=== PATIENT | female | born 1975 | race Caucasian/White ===

== ENCOUNTER 2018-06-01 07:52 | Emergency (ER) | payer OTHER, SELFPAY ==
[2018-06-01] MEDS ORDERED: KETOROLAC 30 MG/ML INJ ONE (09:23)
[2018-06-01 09:39] LABS: Absolute Lymphocytes (CBC) 1.7 K/uL (0.7-4.9); Absolute Monocytes 0.6 K/uL (0.1-1.3); Absolute Neutrophil 12.4 K/uL (1.8-8.0); Basophils % 0.3 % (0-1.3); Eosinophils % 1.2 % (0-4.4); Hematocrit 42.5 % (36.0-45.0); Lymphocytes % 11.2 % (15.3-44.8); MPV 8.3 fL (7.6-11.3); Monocytes % 4.2 % (3.3-12.3); RBC Red Blood Cell Count 4.57 M/uL (3.86-4.86)
[2018-06-01 09:57] LABS: ALT/SGPT 17 U/L (12-78); AST/SGOT 16 U/L (15-37); Albumin 3.7 g/dL (3.4-5.0); Alkaline Phosphatase 62 U/L (45-117); BUN Blood Urea Nitrogen 10 mg/dL (7-18); Bicarbonate 27 mmol/L (21-32); Bilirubin Direct < 0.1 mg/dL (0-0.2); Bilirubin Total 0.4 mg/dL (0.2-1.0); Glucose Level 110 mg/dL (74-106); Lipase 74 U/L (73-393); Potassium 3.9 mmol/L (3.5-5.1); Protein, Total 7.2 g/dL (6.4-8.2); Sodium Level 139 mmol/L (136-145)
--- NOTE | 2018-06-01 10:32 | RAD REPORT ---
EXAM DESCRIPTION: CTAbdomen Pelvis W Contrast - 06/01/2018 10:21 am CLINICAL HISTORY: Abdominal pain. LLQ abd pain COMPARISON: No comparisons TECHNIQUE: Biphasic CT imaging of the abdomen and pelvis was performed with 100 ml non-ionic IV cont rast. All CT scans are performed using dose optimization technique as appropriate and may include automated exposure control or mA/KV adjustment according to patient size. FINDINGS: The lung bases are clear. The liver, spleen, pancreas, adrenal glands and kidneys are within normal limits. Mild free fluid is seen in the left upper quadrant surrounding the splenic flexure the colon. A promi nent diverticulum from the colon is seen in the region. No free intraperitoneal air, abscess or bowel obstruction. Appendectomy. No evidence of significant lymphadenopathy. No suspicious bony findings. Fibroid uterus is present. Submucosal fibroid versus polyp suspected in the endometrial canal, incompletely assessed. IMPRESSION: Short-segment colitis or diverticulitis is suspected involving the splenic flexure of th e colon in the left upper quadrant. Fibroid uterus is present with submucosal fibroid versus polyp suspected in the endometrial canal.
--- NOTE | 2018-06-01 10:40 | EDPHYS ---
Physician Documentation [facility] Name: Jen Joyce Age: 43 yrs Sex: Female : 1975 Arrival Date: 06/01/2018 Time: 07:55 Bed 20 Private MD: ED Physician Joseph Ng HPI: 06/01 10:40 This 43 yrs old Female presents to ER via Ambulatory with complaints of ps1 Abdominal Pain. 10:40 patient states that she had LLQ abdominal pain that started last night. Appx 11 pm. Hx ps1 of ovarian cyst s/p oophorectomy on L side as well as BTL and appendectomy. Pain unchanged. Pain rated as moderate. No fever. No remitting factors. No dysuria, + BM this morning. . 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 - Ebola Screening: : No symptoms or risks identified at this time. - Social history:: Smoking status: Patient uses tobacco products. ROS: 10:40 Constitutional: Negative for fever, chills, and weight loss, Eyes: Negative for injury, ps1 pain, redness, and discharge, ENT: Negative for injury, pain, and discharge, Cardiovascular: Negative for chest pain, palpitations, and edema, Respiratory: Negative for shortness of breath, cough, wheezing, and pleuritic chest pain, MS/Extremity: Negative for injury and deformity, Skin: Negative for injury, rash, and discoloration, Neuro: Negative for headache, weakness, numbness, tingling, and seizure. 10:40 Abdomen/GI: Positive for abdominal pain. Exam: 10:40 Constitutional: This is a well developed, well nourished patient who is awake, alert, ps1 and in no acute distress. Head/Face: Normocephalic, atraumatic. Eyes: Pupils equal round and reactive to light, extra-ocular motions intact. Lids and lashes normal. Conjunctiva and sclera are non-icteric and not injected. Chest/axilla: Normal chest wall appearance and motion. Nontender with no deformity. No lesions are appreciated. Cardiovascular: Regular rate and rhythm. No gallops, murmurs, or rubs. Normal PMI, no JVD. No pulse deficits. Respiratory: Lungs have equal breath sounds bilaterally, clear to auscultation and percussion. No rales, rhonchi or wheezes noted. No increased work of breathing, no retractions or nasal flaring. 10:40 Skin: Warm, dry with normal turgor. Normal color with no rashes, no lesions, and no evidence of cellulitis. MS/ Extremity: Pulses equal, no cyanosis. Neurovascular intact. Full, normal range of motion. Neuro: Awake and alert, GCS 15, oriented to person, place, time, and situation. Cranial nerves II-XII grossly intact. Sensory grossly intact. Psych: Awake, alert, with orientation to person, place and time. Behavior, mood, and affect are within normal limits. 10:40 Abdomen/GI: Inspection: abdomen appears normal, Bowel sounds: normal, Palpation: mild abdominal tenderness, in the left upper quadrant and left lower quadrant. Vital Signs: 08:09 BP 90 / 54; Pulse 56; Resp 16 S; Temp 97.8(O); Pulse Ox 100% on R/A; Weight 52.16 kg jl7 (R); Height 4 ft. 8 in. (142.24 cm) (R); Pain 10/10; 09:30 BP 91 / 56; Pulse 59; Resp 16; Pulse Ox 100% on R/A; Pain 5/10; jl7 10:56 BP 91 / 54; Pulse 58; Resp 16 S; Pulse Ox 100% on R/A; Pain 5/10; jl7 08:09 Body Mass Index 25.78 (52.16 kg, 142.24 cm) jl7 MDM: 08:17 Patient medically screened. ps1 10:45 Data reviewed: vital signs, nurses notes, lab test result(s), radiologic studies, CT ps1 scan, and as a result, I will discharge patient. Counseling: I had a detailed discussion with the patient and/or guardian regarding: the historical points, exam findings, and any diagnostic results supporting the discharge/admit diagnosis, lab results, radiology results, the need for outpatient follow up, to return to the emergency department if symptoms worsen or persist or if there are any questions or concerns that arise at home. 06/01 08:29 Order name: Urine Dipstick--Ancillary (enter results); Complete Time: 10:45 bd 06/01 08:29 Order name: Urine --Ancillary (enter results); Complete Time: 10:45 bd 06/01 08:38 Order name: Creatinine for Radiology; Complete Time: 09:59 ps1 06/01 08:38 Order name: Basic Metabolic Panel; Complete Time: 09:59 ps1 06/01 08:38 Order name: CBC with Diff; Complete Time: 09:48 ps1 06/01 08:38 Order name: Hepatic Function; Complete Time: 09:59 ps1 06/01 08:38 Order name: Lipase; Complete Time: 09:59 ps1 06/01 08:38 Order name: IV Saline Lock; Complete Time: 08:38 ps1 06/01 08:38 Order name: Labs collected and sent; Complete Time: 08:38 ps1 06/01 08:38 Order name: CT Abd/Pelvis - W/Contrast; Complete Time: 10:37 ps1 Administered Medications: 09:18 Drug: TORadol 30 mg Route: IVP; Site: right antecubital; [facility] 09:45 Follow up: Response: No adverse reaction; Pain is decreased jl7 Disposition: 06/01/18 10:38 Discharged to Home. Impression: Diverticulitis of intestine, part unspecified, without perforation or abscess without bleeding. - Condition is Stable. - Discharge Instructions: Diverticulitis. - Prescriptions for Flagyl 500 mg Oral Tablet - take 1 tablet by ORAL route every 8 hours for 10 days; 30 tablet. Tylenol- Codeine #3 300-30 mg Oral Tablet - take 2 tablet by ORAL route every 6 hours As needed; 30 tablet. Zofran 4 mg Oral Tablet - take 1 tablet by ORAL route every 12 hours As needed; 20 tablet. Cipro 500 mg Oral Tablet - take 1 tablet by ORAL route every 12 hours for 7 days; 14 tablet. - Medication Reconciliation Form, Thank You Letter, Antibiotic Education, Prescription Opioid Use form. - Follow up: Private Physician; When: As needed; Reason: Further diagnostic work-up, Recheck today's complaints, Continuance of care, Re-evaluation by your physician. Follow up: Emergency Department; When: As needed; Reason: Worsening of condition. - Problem is new. - Symptoms have improved. Signatures: Dispatcher [employer] Louise Matthews RN RN jl7 Joseph Ng MD MD ps1 Corrections: (The following items were deleted from the chart) 10:57 10:38 06/01/2018 10:38 Discharged to Home. Impression: Diverticulitis of intestine, jl7 part unspecified, without perforation or abscess without bleeding. Condition is Stable. Forms are Medication Reconciliation Form, Thank You Letter, Antibiotic Education, Prescription Opioid Use. Follow up: Private Physician; When: As needed; Reason: Further diagnostic work-up, Recheck today's complaints, Continuance of care, Re-evaluation by your physician. Follow up: Emergency Department; When: As needed; Reason: Worsening of condition. Problem is new. Symptoms have improved. ps1
--- NOTE | 2018-06-01 10:40 | ER ---
Nurse's Notes [facility] Name: Jen Joyce Age: 43 yrs Sex: Female : 1975 Arrival Date: 06/01/2018 Time: 07:55 Bed 20 Private MD: Diagnosis: Diverticulitis of intestine, part unspecified, without perforation or abscess without bleeding Presentation: 06/01 08:04 Presenting complaint: Patient states: LLQ abd pain started last night at 2300, last BM jl7 this morning and normal, last period was last week. Transition of care: patient was not received from another setting of care. Onset of symptoms was May 31, 2018 at 23:00. Risk Assessment: Do you want to hurt yourself or someone else? Patient reports no desire to harm self or others. Initial Sepsis Screen: Does the patient meet any 2 criteria? No. Patient's initial sepsis screen is negative. Does the patient have a suspected source of infection? No. Patient's initial sepsis screen is negative. Care prior to arrival: None. 08:04 Method Of Arrival: Ambulatory [facility] 08:04 Acuity: TAMELA 3 jl7 Triage Assessment: 08:09 General: Appears in no apparent distress. uncomfortable, Behavior is calm, cooperative, jl7 appropriate for age. Pain: Complains of pain in left lower quadrant Pain does not radiate. Pain currently is 10 out of 10 on a pain scale. Quality of pain is described as sharp, Pain began suddenly, Is continuous. EENT: No signs and/or symptoms were reported regarding the EENT system. Neuro: Level of Consciousness is awake, alert, obeys commands, Oriented to person, place, time, situation. Cardiovascular: Patient's skin is warm and dry. Respiratory: Airway is patent Respiratory effort is even, unlabored, Respiratory pattern is regular, symmetrical. GI: Reports lower abdominal pain, nausea, vomiting. : No signs and/or symptoms were reported regarding the genitourinary system. Denies burning with urination, pain urinary frequency. Derm: Skin is pink, warm \T\ dry. 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 - Ebola Screening: : No symptoms or risks identified at this time. - Social history:: Smoking status: Patient uses tobacco products. Screenin:15 Abuse screen: Denies threats or abuse. Denies injuries from another. Nutritional jl7 screening: No deficits noted. Tuberculosis screening: No symptoms or risk factors identified. Fall Risk IV access (20 points). Assessment: 08:15 General: See triage assessment. jl7 09:17 Reassessment: Patient appears in no apparent distress at this time. Patient and/or jl7 family updated on plan of care and expected duration. Pain level reassessed. Patient is alert, oriented x 3, equal unlabored respirations, skin warm/dry/pink. Pt requesting pain medication, ERD notified, see [facility] for orders. Vital Signs: 08:09 BP 90 / 54; Pulse 56; Resp 16 S; Temp 97.8(O); Pulse Ox 100% on R/A; Weight 52.16 kg jl7 (R); Height 4 ft. 8 in. (142.24 cm) (R); Pain 10/10; 09:30 BP 91 / 56; Pulse 59; Resp 16; Pulse Ox 100% on R/A; Pain 5/10; jl7 10:56 BP 91 / 54; Pulse 58; Resp 16 S; Pulse Ox 100% on R/A; Pain 5/10; jl7 08:09 Body Mass Index 25.78 (52.16 kg, 142.24 cm) jl7 ED Course: 07:55 Patient arrived in ED. mr 08:02 Joseph Ng MD is Attending Physician. ps1 08:04 Louise Kellogg, STEPH is Primary Nurse. jl7 08:07 Triage completed. jl7 08:09 Arm band placed on right wrist. jl7 08:15 Patient has correct armband on for positive identification. Placed in gown. Bed in low jl7 position. Call light in reach. Side rails up X 1. Pulse ox on. NIBP on. Warm blanket given. 08:15 Urine collected: clean catch specimen, cloudy. jl7 08:31 Initial lab(s) drawn, by me. Inserted saline lock: 22 gauge in right antecubital area, jb1 using aseptic technique. Blood collected. 10:13 CT completed. Patient tolerated procedure well. Patient moved to CT via wheelchair. sj Patient moved back from CT. 10:21 CT Abd/Pelvis - W/Contrast In Process Unspecified. EDMS 10:54 No provider procedures requiring assistance completed. IV discontinued, intact, jl7 bleeding controlled, No redness/swelling at site. Pressure dressing applied. Administered Medications: 09:18 Drug: TORadol 30 mg Route: IVP; Site: right antecubital; jl7 09:45 Follow up: Response: No adverse reaction; Pain is decreased jl7 Outcome: 10:38 Discharge ordered by . ps1 10:54 Discharged to home ambulatory. jl7 10:54 Condition: stable 10:54 Discharge instructions given to patient, family, Instructed on discharge instructions, follow up and referral plans. medication usage, Demonstrated understanding of instructions, follow-up care, medications, Prescriptions given X 4. 10:57 Patient left the ED. jl7 Signatures: Dispatcher [employer] EDMS Mckay Villavicencio jbMelina Holbrook Susan sj Leal, Jahala, RN RN jl7 Joseph Ng MD MD ps1
[2018-06-01 10:42] LABS: Urine Blood 2+ (NEG); Urine Glucose NEGATIVE (NEG); Urine Protein 1+ (NEG)
[2018-06-01 11:04] VITALS: TEMP 97.8; O2SAT 100
[2018-06-01 11:06] VITALS: BP 91/54
== END 2018-06-01 10:57 | disposition home or self-care (01) ==
LOC: ER 07:52
DX: K57.92 Diverticulitis of intestine, part unspecified, without perforation or abscess without bleeding (principal); J45.909 Unspecified asthma, uncomplicated; Z88.0 Allergy status to penicillin; Z72.0 Tobacco use
CPT/HCPCS: 36415; 74177; 80048; 80076; 81003; 81025; 83690; 85025; 96374; 99284; Q9967

== ENCOUNTER 2021-12-03 09:20 | Emergency (ER) | payer SELFPAY ==
[2021-12-03 10:12] LABS: Urine Blood 2+ (Negative); Urine Glucose Negative (Negative); Urine Protein 2+ (Negative)
[2021-12-03] MEDS ORDERED: CEFTRIAXONE 1000 MG/VIAL ONE (10:26)
--- NOTE | 2021-12-03 10:28 | ER ---
Nurse's Notes [facility] Name: Jen Joyce Age: 46 yrs Sex: Female : 1975 Arrival Date: 12/03/2021 Time: : Bed 20 Private MD: Diagnosis: UTI/ Urinary tract infection, site not specified Presentation: 12/03 09:27 Chief complaint: Patient states: she is having lower abdominal pain and pain with ap3 urination since Wednesday11/30/2021. Coronavirus screen: At this time, the client does not indicate any symptoms associated with coronavirus-19. Ebola Screen: No symptoms or risks identified at this time. Initial Sepsis Screen: Does the patient meet any 2 criteria? No. Patient's initial sepsis screen is negative. Does the patient have a suspected source of infection? No. Patient's initial sepsis screen is negative. Risk Assessment: Do you want to hurt yourself or someone else? Patient reports no desire to harm self or others. Onset of symptoms was November 30, 2021. 09: Method Of Arrival: Ambulatory ap3 : Acuity: TAMELA 3 ap3 Triage Assessment: : General: Appears uncomfortable, Behavior is calm, cooperative. Pain: Complains of pain ap3 in suprapubic area, right lower quadrant and left lower quadrant. Neuro: Level of Consciousness is awake, alert, obeys commands, Oriented to person, place, time, situation. : Reports burning with urination, urgency. 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 - Social history:: Smoking status: Patient reports the use of cigarette tobacco products, denies chronic smoking, but will smoke occasionally. Screenin: Abuse screen: Denies threats or abuse. Nutritional screening: No deficits noted. ap3 Tuberculosis screening: No symptoms or risk factors identified. 10:57 Fall Risk None identified. 5 Vital Signs: BP 118 / 65; Pulse 65; Resp 18; Temp 99.0(O); Pulse Ox 100% ; Weight 65.77 kg; Height 4 ap3 ft. 8 in. (142.24 cm); 10:58 BP 122 / 63; Pulse 68; Resp 18; Pulse Ox 100% ; jh5 09:27 Body Mass Index 32.51 (65.77 kg, 142.24 cm) ap3 ED Course: 09:21 Patient arrived in ED. am2 09:25 Shaggy Mitchell PA is PHCP. [facility] 09:25 Asa Walker MD is Attending Physician. [facility] 09:28 Triage completed. ap3 09:29 Arm band placed on right wrist. ap3 09:31 Salena Jensen, RN is Primary Nurse. [facility] 10:16 Urine Culture Sent. [facility] 10:57 Patient has correct armband on for positive identification. [facility] 10:57 No provider procedures requiring assistance completed. Patient did not have IV access [facility] during this emergency room visit. Administered Medications: 10:20 Drug: Rocephin (cefTRIAXone) 1 grams Route: IM; Site: right gluteus; [facility] Medication: 10:58 VIS not applicable for this client. [facility] Outcome: 10:28 Discharge ordered by MD. [facility] 10:57 Discharged to home ambulatory. [facility] 10:57 Condition: good 10:57 Discharge instructions given to patient, Instructed on discharge instructions, follow up and referral plans. Demonstrated understanding of instructions, follow-up care, medications, Prescriptions given X 1. 11:05 Patient left the ED. [facility] Signatures: Shaggy Mitchell PA PA [facility] Odessa Jiménez [facility] Odessa Anderson RN RN [facility] Salena Jensen, STEPH RN 5 Corrections: (The following items were deleted from the chart) : 09:28 PMHx: Asthma; ap3 ap3
--- NOTE | 2021-12-03 10:29 | EDPHYS ---
Physician Documentation [facility] Name: Jen Joyce Age: 46 yrs Sex: Female : 1975 Arrival Date: 12/03/2021 Time: 09:21 Bed 20 Private MD: ED Physician Asa Walker HPI: 12/03 09:39 This 46 yrs old Female presents to ER via Ambulatory with complaints of Pelvic Pain, jmm Pain With Urination. 09:39 The patient presents with pelvic pain. Onset: The symptoms/episode began/occurred jmm gradually. 09:39 Modifying factors: The symptoms are alleviated by nothing, the symptoms are aggravated jmm by nothing. 09:39 Associated signs and symptoms: Pertinent positives: dysuria. This is a 46 year old jmm female with a history of asthma that presents to the ED with complaints of painful urination, increased frequency and suprapubic abdominal pain beginning approx 3 days ago. Admits to subjective fever. Denies vomiting. . 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 - Social history:: Smoking status: Patient reports the use of cigarette tobacco products, denies chronic smoking, but will smoke occasionally. ROS: 09:39 Cardiovascular: Negative for chest pain, palpitations, and edema, Respiratory: Negative jmm for shortness of breath, cough, wheezing, and pleuritic chest pain. 09:39 Constitutional: Positive for body aches, chills. 09:39 : Positive for urinary symptoms. 09:39 All other systems are negative. Exam: 09:39 Constitutional: This is a well developed, well nourished patient who is awake, alert, jmm and in no acute distress. Head/Face: atraumatic. Eyes: EOMI, no conjunctival erythema appreciated ENT: Moist Mucus Membranes Neck: Trachea midline, Supple Chest/axilla: Normal chest wall appearance and motion. Cardiovascular: Regular rate and rhythm. No edema appreciated Respiratory: Normal respirations, no respiratory distress appreciated 09:39 Back: Normal ROM Skin: General appearance color normal MS/ Extremity: Moves all extremities, no obvious deformities appreciated, no edema noted to the lower extremities Neuro: Awake and alert Psych: Behavior is normal, Mood is normal, Patient is cooperative and pleasant 09:39 Abdomen/GI: Inspection: abdomen appears normal, Bowel sounds: normal, Palpation: soft, nontender, in the right upper quadrant, left upper quadrant, right lower quadrant and left lower quadrant, mild abdominal tenderness, in the suprapubic area. Vital Signs: 09:27 BP 118 / 65; Pulse 65; Resp 18; Temp 99.0(O); Pulse Ox 100% ; Weight 65.77 kg; Height 4 ap3 ft. 8 in. (142.24 cm); 10:58 BP 122 / 63; Pulse 68; Resp 18; Pulse Ox 100% ; jh5 09:27 Body Mass Index 32.51 (65.77 kg, 142.24 cm) ap3 MDM: 09:39 Patient medically screened. [facility] 10:26 Data reviewed: vital signs, nurses notes. Counseling: I had a detailed discussion with lashon the patient and/or guardian regarding: the historical points, exam findings, and any diagnostic results supporting the discharge/admit diagnosis, lab results, the need for outpatient follow up, to return to the emergency department if symptoms worsen or persist or if there are any questions or concerns that arise at home. ED course: Patient is alert and non toxic in appearance in the ED. I do not suspect an acute intrabdominal process. Patient advised to follow up with pcp and otherwise given strict return precautions. patient understood and agrees with the plan of care. . 12/03 09:43 Order name: Urine Culture [facility] 12/03 10:12 Order name: Urine Dipstick-Ancillary; Complete Time: 10:12 EDMS 12/03 09:43 Order name: Urine Dipstick-Ancillary (obtain specimen); Complete Time: 10:16 [facility] Administered Medications: 10:20 Drug: Rocephin (cefTRIAXone) 1 grams Route: IM; Site: right gluteus; 5 Disposition: 11:51 Co-signature as Attending Physician, Asa Walker MD I agree with the assessment and kdr plan of care. Disposition Summary: 12/03/21 10:28 Discharge Ordered Location: Home [facility] Condition: Stable [facility] Diagnosis - UTI/ Urinary tract infection, site not specified [facility] Followup: [facility] - With: Private Physician - When: 2 - 3 days - Reason: Recheck today's complaints, Continuance of care, Re-evaluation by your physician Discharge Instructions: - Discharge Summary Sheet [facility] - Urinary Tract Infection, Adult [facility] Forms: - Medication Reconciliation Form [facility] - Thank You Letter [facility] - Work release form [facility] - Antibiotic Education [facility] - Prescription Opioid Use [facility] Prescriptions: - cefpodoxime 200 mg Oral Tablet - take 1 tablet by ORAL route every 12 hours for 10 days with food; 20 tablet; [facility] Refills: 0, Product Selection Permitted Signatures: Dispatcher [employer] EDAsa Newbrery MD MD kdr Mickail, Joel, PA PA jmm Prokisch, Amanda, RN RN ap3 Salena Jensen RN RN jh5 Corrections: (The following items were deleted from the chart) 09:29 09:28 PMHx: Asthma; ap3 ap3
[2021-12-03 11:26] VITALS: O2SAT 100
[2021-12-03 11:33] VITALS: BP 118/65; TEMP 99
== END 2021-12-03 11:05 | disposition home or self-care (01) ==
LOC: ER 09:20
DX: N39.0 Urinary tract infection, site not specified (principal); F17.210 Nicotine dependence, cigarettes, uncomplicated; Z88.1 Allergy status to other antibiotic agents
CPT/HCPCS: 81003; 87086; 87088

== ENCOUNTER 2022-02-15 19:44 | Emergency (ER) | payer SELFPAY ==
[2022-02-15 20:40] LABS: Absolute Lymphocytes (CBC) 3.2 K/uL (0.7-4.9); Hematocrit 39.7 % (36.0-45.0); Lymphocytes % 39.5 % (15.3-44.8); MPV 7.5 fL (7.6-11.3); RBC Red Blood Cell Count 4.46 M/uL (3.86-4.86)
--- NOTE | 2022-02-15 21:02 | RAD REPORT ---
EXAM DESCRIPTION: RAD - Chest Single View - 02/15/2022 8:44 pm CLINICAL HISTORY: CHEST PAIN Chest pain. COMPARISON: Chest Pa And Lat (2 Views) dated 03/03/2017; CHEST SINGLE VIEW dated 01/14/2015; CHEST SI NGLE VIEW dated 08/05/2014; CHEST PA AND LAT 2 VIEW dated 08/04/2014 FINDINGS: Portable technique limits examination quality. The lungs are grossly clear. The heart is upper limit of normal in size. No displaced fractures. IMPRESSION: No acute intrathoracic process suspected.
[2022-02-15] MEDS ORDERED: KETOROLAC 30 MG/ML INJ ONE (22:40)
[2022-02-15 23:39] LABS: Potassium 3.7 mmol/L (3.5-5.1); Troponin High Sensitivity 9.5 pg/mL (<58.9)
--- NOTE | 2022-02-16 01:03 | ER ---
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 I also feel really fatigued. 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 Coronavirus screen: Vaccine status: Patient reports receiving the 2nd dose of the covid vaccine. Ebola Screen: No symptoms or risks identified at this time. Initial Sepsis Screen: Does the patient meet any 2 criteria? No. Patient's initial sepsis screen is negative. Does the patient have a suspected source of infection? No. Patient's initial sepsis screen is negative. Risk Assessment: Do you want to hurt yourself or someone else? Patient reports no desire to harm self or others. Onset of symptoms was February 15, 2022. 19:54 Method Of Arrival: Ambulatory kd3 19:54 Acuity: TAMELA 3 kd3 Triage Assessment: 19:56 General: Appears uncomfortable, Behavior is calm, cooperative. Pain: Complains of pain kd3 in chest. Cardiovascular: Patient's skin is warm and dry. 19:56 Neuro: Level of Consciousness is awake, alert, obeys commands, Oriented to person, kd3 place, time, situation. Respiratory: Airway is patent Trachea midline Respiratory effort is even, unlabored, Respiratory pattern is regular, symmetrical. CLIENT ADVISOR: 02/16 01:09 LMP N/A - Post-menopause aa9 Historical: - Allergies: 02/15 19:56 Amoxicillin; kd3 - PMHx: 19:56 Asthma; kd3 - Immunization history:: Adult Immunizations up to date. - Social history:: Smoking status: unknown. Screenin:57 Abuse screen: Denies threats or abuse. Denies injuries from another. Nutritional kd3 screening: No deficits noted. Tuberculosis screening: No symptoms or risk factors identified. Fall Risk None identified. Assessment: 20:09 General: Appears uncomfortable, slender, Behavior is calm, cooperative, appropriate for aa9 age. Pain: Complains of pain in chest, right arm and left arm Pain radiates to right arm and left arm Pain currently is 5 out of 10 on a pain scale. Quality of pain is described as pressure, Pain began 2 weeks Current management is with Tylenol. Neuro: Level of Consciousness is awake, alert, obeys commands, Oriented to person, place, time, situation. Cardiovascular: Patient's skin is warm and dry. Rhythm is sinus rhythm. Respiratory: Airway is patent Respiratory effort is even, unlabored. GI: No signs and/or symptoms were reported involving the gastrointestinal system. : No signs and/or symptoms were reported regarding the genitourinary system. 21:04 Reassessment: Patient appears in no apparent distress at this time. General: Appears aa9 comfortable, Behavior is calm, cooperative, appropriate for age. Neuro: Level of Consciousness is awake, alert, obeys commands, Oriented to person, place, time, situation. Respiratory: Airway is patent Respiratory effort is even, unlabored. 02/16 01:03 Reassessment: Patient appears in no apparent distress at this time. General: Appears aa9 comfortable, slender, Behavior is calm, cooperative, appropriate for age. Pain: Denies pain. Neuro: Level of Consciousness is awake, alert, obeys commands, Oriented to person, place, time, situation. Cardiovascular: Patient's skin is warm and dry. Respiratory: Airway is patent Respiratory effort is even, unlabored. GI: No signs and/or symptoms were reported involving the gastrointestinal system. : No signs and/or symptoms were reported regarding the genitourinary system. 03:09 Reassessment: attempted to call report. aa9 03:28 Reassessment: Report provided to Laverne EMT with [facility] for transport. aa9 03:31 Reassessment: Daughter in law, Patricia called at [phone], notified of transfer, aa9 understands need for transfer and denies concerns, pt stable, understands need for transfer. 03:56 Reassessment: Report provided to Delbert CHOI at [facility] ICU. bb Vital Signs: 02/15 19:54 BP 114 / 60; Pulse 61; Resp 19; Temp 98.2(O); Pulse Ox 96% on R/A; Weight 54.43 kg; kd3 Height 4 ft. 8 in. (142.24 cm); 20:11 BP 123 / 66; Pulse 58; Resp 14 S; Pulse Ox 99% on R/A; Pain 5/10; aa9 21:15 BP 106 / 63; Pulse 51; Resp 17 S; Pulse Ox 99% ; aa9 22:16 BP 102 / 57; Pulse 52; Resp 16 S; Pulse Ox 97% on R/A; aa9 02/16 00:00 BP 110 / 59; Pulse 53; Resp 16 S; Temp 98.2(O); Pulse Ox 96% on R/A; aa9 01:00 BP 117 / 68; Pulse 49; Resp 17 S; Pulse Ox 97% on R/A; aa9 03:00 BP 100 / 56; Pulse 47; Resp 16 S; Pulse Ox 96% on R/A; aa9 02/15 19:54 Body Mass Index 26.90 (54.43 kg, 142.24 cm) kd3 ED Course: 02/15 19:46 Patient arrived in ED. mr 19:48 Asa Walker MD is Attending Physician. kdr 19:56 Triage completed. kd3 19:56 Arm band placed on right wrist. kd3 19:57 Patient has correct armband on for positive identification. kd3 19:57 Patient maintains SpO2 saturation greater than 95% on room air. kd3 20:06 Lakisha Martinez, RN is Primary Nurse. aa9 20:07 Placed in gown. Bed in low position. Call light in reach. Side rails up X 1. Adult w/ mm9 patient. Warm blanket given. environmental monitoring specialist on. Pulse ox on. NIBP on. 20:08 EKG done, by ED staff, reviewed by Asa Walker MD. mm9 20:25 Inserted saline lock: 20 gauge in left antecubital area, using aseptic technique. Blood aa9 collected. 20:27 Basic Metabolic Panel Sent. aa9 20:27 CBC with Diff Sent. aa9 20:27 D-Dimer Sent. aa9 20:27 NT PRO-BNP Sent. aa9 20:27 Troponin HS Sent. aa9 20:34 Diet: Patient given water. Tolerated well. aa9 20:44 Notified ED physician of a critical lab result(s). DDimer [id number] Dr Walker notified. bb 20:46 XRAY Chest (1 view) In Process Unspecified. EDMS 21:03 Warm blanket given. aa9 23:34 Troponin HS Sent. aa9 23:34 NT PRO-BNP Sent. aa9 23:34 Basic Metabolic Panel Sent. aa9 02/16 00:02 CT Chest For PE Angio In Process Unspecified. EDMS 01:09 No provider procedures requiring assistance completed. aa9 02:05 SARS RAPID Sent. aa9 03:31 Patient transferred, IV remains in place. aa9 Administered Medications: 02/15 22:42 Drug: Ketorolac 15 mg Route: IVP; Site: left antecubital; aa9 23:10 Follow up: Response: No adverse reaction aa9 Medication: 02/16 01:09 VIS not applicable for this client. aa9 Outcome: 01:02 ER care complete, transfer ordered by . kdr 03:30 Transferred by ground EMS Transfer form completed. aa9 03:30 Condition: stable 03:30 Instructed on the need for admit. 03:35 Patient left the ED. aa9 Signatures: Dispatcher [employer] EDMS Asa Walker MD MD kdr Rivera, Mary Jessi Concepcion, RN RN Soledad Dawson RN RN kd3 Lakisha Martinez RN RN aa9 Kassie Khan mm9 Corrections: (The following items were deleted from the chart) 01:06 02/15 20:34 BP 106 / 63; Pulse 51bpm; Resp 17bpm; Spontaneous; Pulse Ox 99%; aa9 aa9
--- NOTE | 2022-02-16 01:03 | EDPHYS ---
Physician Documentation [facility] Name: Jen Joyce Age: 46 yrs Sex: Female : 1975 Arrival Date: 02/15/2022 Time: 19:46 Bed 13 Private MD: ED Physician Asa Walker HPI: 02/16 03:18 This 46 yrs old Female presents to ER via Ambulatory with complaints of Chest Pain. kdr 03:18 The patient or guardian reports chest pain that is located primarily in the anterior kdr chest wall, bilaterally. Onset: gradually. 03:20 Patient states that she has had intermittent chest discomfort for couple of weeks. She kdr states that the episodes of chest pain make her feel dizzy and her arms numb. She also feels generally fatigued. In the nursing notes, the patient admits to a history of a "kink in the main artery" of her heart. On my initial interview she did not disclose any congenital cardiac conditions or anomalies. 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 However she has not followed up with this plan of care and feels that there may be some correlation with her current symptoms. Patient is nontoxic-appearing and is relatively pain-free on initial presentation. Onset: The symptoms/episode began/occurred gradually, 2 week(s) ago. Severity of symptoms: At their worst the symptoms were mild in the emergency department the symptoms are unchanged. The patient has not experienced similar symptoms in the past. The patient has not recently seen a physician. SAW SHARPENER: 01:09 LMP N/A - Post-menopause aa9 Historical: - Allergies: 02/15 19:56 Amoxicillin; kd3 - PMHx: 19:56 Asthma; kd3 - Immunization history:: Adult Immunizations up to date. - Social history:: Smoking status: unknown. ROS: 02/16 03:20 Constitutional: Negative for fever, chills, and weight loss, Eyes: Negative for injury, kdr pain, redness, and discharge, ENT: Negative for injury, pain, and discharge, Neck: Negative for injury, pain, and swelling, Respiratory: Negative for shortness of breath, cough, wheezing, and pleuritic chest pain, Abdomen/GI: Negative for abdominal pain, nausea, vomiting, diarrhea, and constipation, Back: Negative for injury and pain, : Negative for injury, bleeding, discharge, and swelling, MS/Extremity: Negative for injury and deformity, Skin: Negative for injury, rash, and discoloration, Neuro: Negative for headache, weakness, numbness, tingling, and seizure activity. Psych: Negative for depression, anxiety, suicide ideation, homicidal ideation, and hallucinations, Allergy/Immunology: Negative for hives, rash, and allergies, Endocrine: Negative for neck swelling, polydipsia, polyuria, polyphagia, and marked weight changes, Hematologic/Lymphatic: Negative for swollen nodes, abnormal bleeding, and unusual bruising. Cardiovascular: Positive for chest pain, Negative for edema, orthopnea, palpitations. MS/extremity: Positive for Pain in her left arm and paresthesias in both hands on a periodic basis. Exam: 03:20 Constitutional: This is a well developed, well nourished patient who is awake, alert, kdr and in no acute distress. Head/Face: Normocephalic, atraumatic. Eyes: Pupils equal round and reactive to light, extra-ocular motions intact. Lids and lashes normal. Conjunctiva and sclera are non-icteric and not injected. Cornea within normal limits. Periorbital areas with no swelling, redness, or edema. Neck: Trachea midline, no thyromegaly or masses palpated, and no cervical lymphadenopathy. Supple, full range of motion without nuchal rigidity, or vertebral point tenderness. No Meningismus. Chest/axilla: Normal chest wall appearance and motion. Nontender with no deformity. No lesions are appreciated. Cardiovascular: Regular rate and rhythm with a normal S1 and S2. No gallops, murmurs, or rubs. Normal PMI, no JVD. No pulse deficits. Respiratory: Lungs have equal breath sounds bilaterally, clear to auscultation and percussion. No rales, rhonchi or wheezes noted. No increased work of breathing, no retractions or nasal flaring. Abdomen/GI: Soft, non-tender, with normal bowel sounds. No distension or tympany. No guarding or rebound. No evidence of tenderness throughout. Back: No spinal tenderness. No costovertebral tenderness. Full range of motion. Skin: Warm, dry with normal turgor. Normal color with no rashes, no lesions, and no evidence of cellulitis. MS/ Extremity: Pulses equal, no cyanosis. Neurovascular intact. Full, normal range of motion. Neuro: Awake and alert, GCS 15, oriented to person, place, time, and situation. Cranial nerves II-XII grossly intact. Motor strength 5/5 in all extremities. Sensory grossly intact. Cerebellar exam normal. Normal gait. Psych: Awake, alert, with orientation to person, place and time. Behavior, mood, and affect are within normal limits. Vital Signs: 02/15 19:54 BP 114 / 60; Pulse 61; Resp 19; Temp 98.2(O); Pulse Ox 96% on R/A; Weight 54.43 kg; kd3 Height 4 ft. 8 in. (142.24 cm); 20:11 BP 123 / 66; Pulse 58; Resp 14 S; Pulse Ox 99% on R/A; Pain 5/10; aa9 21:15 BP 106 / 63; Pulse 51; Resp 17 S; Pulse Ox 99% ; aa9 22:16 BP 102 / 57; Pulse 52; Resp 16 S; Pulse Ox 97% on R/A; aa9 02/16 00:00 BP 110 / 59; Pulse 53; Resp 16 S; Temp 98.2(O); Pulse Ox 96% on R/A; aa9 01:00 BP 117 / 68; Pulse 49; Resp 17 S; Pulse Ox 97% on R/A; aa9 03:00 BP 100 / 56; Pulse 47; Resp 16 S; Pulse Ox 96% on R/A; aa9 02/15 19:54 Body Mass Index 26.90 (54.43 kg, 142.24 cm) kd3 MDM: 01:02 Patient medically screened. kdr 03:20 Data reviewed: vital signs, nurses notes, lab test result(s), radiologic studies. kdr Counseling: I had a detailed discussion with the patient and/or guardian regarding: the historical points, exam findings, and any diagnostic results supporting the discharge/admit diagnosis, lab results, radiology results, the need to transfer to another facility. ED course: Patient has continued to be stable in the ED. She is not having any further discomfort at this time. She been given Toradol for pain. She was transferred to [facility] in stable condition. She was happy with the care provided the plan for transfer to the higher level care facility. 02/15 20:09 Order name: Basic Metabolic Panel; Complete Time: 02:13 kdr 02/15 20:09 Order name: CBC with Diff; Complete Time: 21:30 kdr 02/15 20:09 Order name: D-Dimer; Complete Time: 21:30 kdr 02/15 20:09 Order name: NT PRO-BNP; Complete Time: 02:13 kdr 02/15 20:09 Order name: Troponin HS; Complete Time: 02:13 kdr 02/16 01:41 Order name: SARS RAPID bb 02/15 20:09 Order name: XRAY Chest (1 view); Complete Time: 21:30 kdr 02/15 20:09 Order name: EKG; Complete Time: 20:11 kdr 02/15 20:09 Order name: Cardiac monitoring; Complete Time: 20:12 kdr 02/15 20:09 Order name: EKG - Nurse/Tech; Complete Time: 20:12 kdr 02/15 20:09 Order name: IV Saline Lock; Complete Time: 20:27 kdr 02/15 20:09 Order name: Labs collected and sent; Complete Time: 20:27 kdr 02/15 21:31 Order name: CT Chest For PE Angio kdr 02/15 20:09 Order name: O2 Per Protocol; Complete Time: 20:12 kdr 02/15 20:09 Order name: O2 Sat Monitoring; Complete Time: 20:12 kdr Administered Medications: 02/15 22:42 Drug: Ketorolac 15 mg Route: IVP; Site: left antecubital; aa9 23:10 Follow up: Response: No adverse reaction aa9 Disposition Summary: 02/16/22 01:02 Transfer Ordered Transfer Location: [facility] kdr Reason: Higher level of care kdr Condition: Fair kdr Problem: an ongoing problem kdr Symptoms: are unchanged kdr Accepting Physician: freddie(02/16/22 03:35) aa9 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
[2022-02-16 02:27] LABS: SARS-CoV-2 Antigen Rapid Res Negative (Negative)
[2022-02-16 04:23] VITALS: TEMP 98.2
[2022-02-16 04:31] VITALS: BP 100/56; O2SAT 96
--- NOTE | 2022-02-16 08:30 | EKG ---
Test Date: 2022-02-15 Test Time: 20:01:29 Monogram Operator: ANDRE MEASUREMENT RESULTS: Intervals: Rate: 66 NE: 138 QRSD: 94 QT: 390 QTc: 408 [place]: P: 52 NE: 138 QRS: 18 T: 42 INTERPRETIVE STATEMENTS: Normal sinus rhythm Nonspecific ST and T wave abnormality Abnormal ECG Compared to ECG 03/03/2017 16:44:40 No significant changes Electronically Signed On 02-16-22 08:29:13 TANK REFINISHER by Nino Perrin
--- NOTE | 2022-02-16 13:25 | RAD REPORT ---
EXAM DESCRIPTION: CT - Chest For Pe Angio - 02/16/2022 12:01 am ADDENDUM #1 Critical findings discussed with Dr. Asa Walker. Lobular finding involving aortic arch is most thuan picious for pseudoaneurysm possibly secondary to traumatic laceration. Finding is larger than would b e expected for ductus diverticulum or developmental variant. Electronically signed by: Amita King MD 02/16/2022 1:01 AM TYPE COPYIST End of Addendum EXAM DESCRIPTION: Chest For Pe Angio CLINICAL HISTORY: 46 years Female SOB/CP COMPARISON: None TECHNIQUE: Images were obtained in axial, sagittal, and coronal planes. Intravenous contrast was adm inistered. 3-D MIP imaging was performed. This exam was performed according to our departmental dose-optimization program which includes use of Automated Exposure Control, adjustment of the mA and/or kV according to patient size and/or use of iterative reconstruction technique. FINDINGS: Abnormal lobular configuration posterior aortic arch anteriorly. The finding measures 2.9 x 2.3 cm and is suspicious for pseudoaneurysm possibly secondary to prior traumatic aortic laceration . No extravasation of contrast seen. The finding is best identified on axial series 401 image 90. Aor tic root is normal in caliber. No focal dissection identified. The finding is seen at the level of th e ligamentum arteriosum. Great vessels are patent at their origins from the aortic arch. No filling defects pulmonary arteries bilaterally. No right heart strain. No pericardial or pleural effusions bilaterally. No adenopathy. No lung parenchymal infiltrates or nodules seen. No pneumothorax. No abnormality upper abdomen. IMPRESSION: Findings consistent with 2.9 cm pseudoaneurysm at level of aortic knob in region of liga mentum arteriosum. The finding could be secondary to prior traumatic aortic laceration. No extravasat ion of contrast seen. No dissection identified on present study. No evidence for pulmonary embolus. No infiltrates seen. Electronically signed by: Amita King MD 02/16/2022 12:43 AM TYPE COPYIST Due to temporary technical issues with the PACS/Fluency reporting system, reports are being signed by the in house radiologists without review as a courtesy to insure prompt reporting. The interpreting radiologist is fully responsible for the content of the report.
== END 2022-02-16 03:35 | disposition short-term general hospital (02) ==
LOC: ER 19:44
DX: R07.89 Other chest pain (principal); I71.9 Aortic aneurysm of unspecified site, without rupture
CPT/HCPCS: 36415; 71045; 71275; 80048; 83880; 84484; 85025; 85379; 87811; 93005; 96374; 99285; Q9967

== ENCOUNTER 2022-04-19 16:20 | Emergency (ER) | payer SELFPAY ==
--- OUTSIDE RECORDS SUMMARY | 2022-04-19 16:25 | XMS REPORT | Continuity of Care Document ---
:1975 Author Organization Formerly [facility] t Address [address] [place] [address] Care Team Providers Name Role Phone Payal AVILA, Frank Bonilla Attending Clinician [phone] Santiago Villarreal MD Attending Clinician Kendell Forde MD Attending Clinician [phone] SANTIAGO VILLARREAL Attending Clinician Unavailable Ralph Maya MD Attending Clinician Daniella Fine MD Attending Clinician Otoniel Haque MD Attending Clinician FRANK LEONE Attending Clinician Unavailable KENDELL FORDE Admitting Clinician Unavailable Problems Condition Condition Condition Status Onset Resolution Last Treating Co mments Source Name Details Category Date Date Treatment Clinician Date Hypertherm Hypertherm Disease Active 2021-[address] [facility] Smoker Smoker Disease Active 2021-[address] [facility] [address] [facility] Asthma Asthma Disease Active 2021-[address] [facility] 02/20:Dist 02/20:Dist Disease Active 2021-[address] [facility] 04-18 [facility]ajma kes replace replace 00:00: Medical across across 00 Center subclavian subclavian & prox & prox desc desc thoracic thoracic ao ao [id number] mm mm Gelweave Gelweave graft.(Moo graft.(Moo n) n) Other Other Disease Active 2021-[address] chest pain chest pain 04-18 Najma kes 00:00: Medical 00 Center Allergies, Adverse Reactions, Alerts Allergy Allergy Status Severity Reaction(s) Onset Inactive Treating Comm ents Source Name Type Date Date Clinician Amoxicil Propensi Active Hives 2021-[address] yazmin ty to 07 over body [facility] adverse 00:00: Medical reaction 00 Center s AMOXICIL Allergy Active High Hives 2021-[address] [facility] YAZMIN 04-18 [facility] Family History Family Member Diagnosis Comments Start Date Stop Date Source Natural son Asthma [facility] Center Social History Social Habit Start Date Stop Date Quantity Comments Source History SDOH [facility] Alcohol Std Drinks Medica l Center History SDOH [facility] Alcohol Binge Medical Sd ter History SDIL [facility] Alcohol Comment Medical C enter History SDIL [facility] Transport Non-Med Medical Center Alcohol intake 2022-02-20 2022-02-[address] [facility] 00:[facility] 00:00:00 non-drinker Medical Madeline r (finding) Cigarettes smoked 2022-02-16 2022-02-[address] [facility] current (pack per 00:00:00 00:00:00 Medical Center day) - Reported Cigarette 2022-02-16 2022-02-[address] [facility] pack-years 00:00:00 00:00:00 Medical Center Tobacco use and 2022-02-16 2022-02-[address] [facility] Najma kes exposure 00:00:00 00:00:00 Medical Center History SDOH 2022-02-16 2022-02-[address] [facility] Alcohol Frequency 00:00:00 00:00:00 Medical Center History SDIL 2022-02-16 2022-02-[address] [facility] Transport Med 00:00:00 00:00:[address] History SDIL 2022-02-16 2022-02-[address] [facility] Housing Unable to 00:00:00 00:00:00 Medical Center Pay History [facility] 2022-02-16 2022-02-[address] [facility] Housing Places 00:00:00 00:00:00 Medical Ce nter Lived History [facility] 2022-02-162022-02-[address] [facility] Housing Homeless 00:00:00 00:00:00 Medical Center Last Year History of tobacco 2010-02-16 2022-01-16 Current smoker [facility] use 00:00:00 00:00:00 Medical Center Sex Ass[birth year] At [birth year] EMELY Lopess 00:00:00 00:00:00 Medical Center Smoking Status Start Date Stop Date Source Former smoker 2022-02-16 00:00:00 2022-02-16 00:00:[address] [facility] Medications Ordered Filled Start Stop Current Ordering Indication Dosage Frequency Signature Comments Components Source Medication Medication Date Date Medication? Clinician (SIG) Name Name acetaminoph 2021-04 Yes pain 500mg Take [address] en 1-15 mg by [facility] (TYLENOL) 12:47: mouth Medical 500 MG 55 every 6 Center tablet (six) hours as needed for Pain. cefpodoxime 200mg Take [address] (VANTIN) 8-25 11-15 mg by [facility] 200 MG 00:00: 00:00 mouth. Medical tablet 00 :00 Aguilar Vital Signs Vital Name Observation Time Observation Value Comments Source WEIGHT 2022-02-20 04:00:00 60.5 kg WEIGHT 2022-02-19 05:09:00 52.209 kg WEIGHT 2022-02-16 06:00:00 53.6 kg HEIGHT 2022-02-16 05:00:00 142.2 cm WEIGHT 2022-02-16 05:00:00 53.6 kg WEIGHT 2022-02-20 04:00:00 60.5 kg WEIGHT 2022-02-19 05:09:00 52.209 kg WEIGHT 2022-02-16 06:00:00 53.6 kg HEIGHT 2022-02-16 05:00:00 142.2 cm WEIGHT 2022-02-16 05:00:00 53.6 kg WEIGHT 2022-02-20 04:00:00 60.5 kg WEIGHT 2022-02-19 05:09:00 52.209 kg WEIGHT 2022-02-16 06:00:00 53.6 kg HEIGHT 2022-02-16 05:00:00 142.2 cm WEIGHT 2022-02-16 05:00:00 53.6 kg Systolic blood 2022-02-24 12:16:00 119 mm[Hg] [facility] Diastolic blood 2022-02-24 12:16:00 75 mm[Hg] [facility] Heart rate 2022-02-24 12:16:00 57 /min [facility] Body temperature 2022-02-24 12:16:00 37 Barbara [facility] Respiratory rate 2022-02-24 12:16:00 18 /min [facility] Oxygen saturation in 2022-02-24 12:16:00 95 /min [facility] Arterial blood by Medical Ce nter Pulse oximetry Body weight 2022-02-20 04:00:[address] [facility] BMI 2022-02-20 04:00:00 29.90 kg/m2 [facility] Body height 2022-02-16 05:00:[address] [facility] Procedures Procedure Date / Time Performing Clinician Source Performed POCT-GLUCOSE METER 2022-02-24 07:39:00 [facility] VIEW PORTABLE 2022-02-24 07:12:[address] [facility] MAGNESIUM 2022-02-24 05:30:00 Jessica Dao [facility] PROTHROMBIN TIME/INR 2022-02-24 05:30:00 Jessica Dao [facility] POCT-GLUCOSE METER 2022-02-23 20:49:00 Santiago Villarreal [facility] POCT-GLUCOSE METER 2022-02-23 16:46:00 Santiago Villarreal [facility] POCT-GLUCOSE METER 2022-02-23 12:04:00 Santiago Villarrealorio [facility] POCT-GLUCOSE METER 2022-02-23 08:27:00 Santiago Villarreal [facility] XR CHEST 1 VIEW PORTABLE 2022-02-23 07:54:[address] [facility] MAGNESIUM 2022-02-23 05:22:00 Jessica Dao [facility] PROTHROMBIN TIME/INR 2022-02-23 05:22:00 Jessica Dao [facility] POCT-GLUCOSE METER 2022-02-22 21:00:00 Santiago Villarreal [facility] POCT-GLUCOSE METER 2022-02-22 16:56:00 [facility] POCT-[facility]UCOSE METER 2022-02-22 11:19:00 [facility] CHEST 1 VIEW PORTABLE 2022-02-22 10:54:00 Basia Langford [facility] POCT-GLUCOSE METER 2022-02-22 07:59:00 Santiago Villarreal [facility] BASIC METABOLIC PANEL 2022-02-22 07:06:00 Jessica Dao [facility] MAGNESIUM 2022-02-22 07:06:00 Jessica Dao [facility] PHOSPHORUS 2022-02-22 07:06:00 Jessica Dao [facility] XR CHEST 1 VIEW PORTABLE 2022-02-22 06:36:[address] [facility] POCT-GLUCOSE METER 2022-02-21 23:14:00 [facility] POCT-GLUCOSE METER 2022-02-21 16:50:00 [facility] POCT-GLUCOSE METER 2022-02-21 12:45:00 [facility] POCT-GLUCOSE METER 2022-02-21 11:34:00 Santiago Villarreal [facility] POCT-GLUCOSE METER 2022-02-21 07:59:00 Santiago Villarreal [facility] POCT-GLUCOSE METER 2022-02-21 07:34:00 Teo [facility] XR CHEST 1 VIEW PORTABLE 2022-02-21 06:41:[address] [facility] CBC (HEMOGRAM ONLY) 2022-02-21 04:22:00 Jessica Dao [facility] BASIC METABOLIC PANEL 2022-02-21 04:22:00 Jessica Dao [facility] MAGNESIUM 2022-02-21 04:22:00 Jessica Dao [facility] PHOSPHORUS 2022-02-21 04:22:00 Jessica Dao [facility] APTT 2022-02-21 04:22:00 Jessica Dao [facility] PROTHROMBIN TIME/INR 2022-02-21 04:22:00 Jessica Dao [facility] PREPARE RBC 2022-02-20 23:54:00 Kendell Forde [facility] PREPARE PLASMA 2022-02-20 23:54:00 Otoniel Haque [facility] XR CHEST 1 VIEW PORTABLE 2022-02-20 03:24:[address] [facility] CBC (HEMOGRAM ONLY) 2022-02-20 02:34:00 Jessica Dao [facility] BASIC METABOLIC PANEL 2022-02-20 02:34:00 Jessica Dao [facility] MAGNESIUM 2022-02-20 02:34:00 Jessica Dao [facility] PHOSPHORUS 2022-02-20 02:34:00 Jessica Dao [facility] APTT 2022-02-20 02:34:00 Jessica Dao [facility] PROTHROMBIN TIME/INR 2022-02-20 02:34:00 Jessica Dao [facility] OXYGEN SATURATION, 2022-02-20 02:34:00 Jessica Dao [facility] BLOOD GAS, ARTERIAL 2022-02-19 15:00:00 Jessica Dao [facility] PROTHROMBIN TIME/INR 2022-02-19 15:00:00 Jessica Dao [facility] APTT 2022-02-19 15:00:00 Feliberto Jessica Nahomy [facility] OXYGEN SATURATION, 2022-02-19 15:00:00 Jessica Dao [facility] BASIC METABOLIC PANEL 2022-02-19 15:00:00 HardawayJessican [facility] CBC W/PLT COUNT & AUTO 2022-02-19 15:00:00 FelibertoJessica [facility] MAGNESIUM 2022-02-19 15:00:00 HardawayJessican [facility] PHOSPHORUS 2022-02-19 15:00:00 FelibertoJessica [facility] CBC W/PLT COUNT & AUTO 2022-02-19 15:00:00 FelibertoJessica [facility] XR CHEST 1 VIEW PORTABLE 2022-02-19 14:38:00 Shelly Daoie Tiffany ramires [facility] PLATELET COUNT 2022-02-19 12:43:15 Francesco [facility] SODIUM NA-STAT LAB 2022-02-19 12:40:07 [facility] 2022-02-19 12:40:07 [facility] GLU[facility]SE-[facility] 2022-02-19 12:40:07 [facility] HGB/HCT (H&H) - STAT LAB 2022-02-19 12:40:07 [facility] 2022-02-19 12:40:07 [facility] (ABG,NA,K,H&H,GLUCOSE) Medical C enter CALCIUM, IONIZED 2022-02-19 12:40:07 [facility] PROTHROMBIN TIME/INR 2022-02-19 12:40:07 [facility] AP[facility] 2022-02-19 12:40:07 [facility] FIBRINOGEN 2022-02-19 12:40:07 [facility] BLOOD GAS, ARTERIAL 2022-02-19 12:40:07 [facility] PO[facility]-ACT 2022-02-19 12:39:00 TeoSantiagoorio [facility] TRANSFUSE PLASMA 2022-02-19 12:17[facility]00 [facility] LEUKO-REDUCED 2022-02-19 12:03:00 [facility] RED BLOOD CELLS [facility] POCT-ACT 2022-02-19 11:42:00 [facility] RRL CRITICAL LABS 2022-02-19 11:41:[facility] ([facility]G,NA,K,H&H,GLUCOSE) Medical C enter CALCIUM, IONIZED 2022-02-19 11:41:26 [facility] BLOOD GAS, ARTERIAL 2022-02-19 11:41:26 [facility] SODIUM NA-STAT LAB 2022-02-19 11:41:26 [facility] POT[facility] LAB 2022-02-19 11:41:26 [facility] GLUCOSE-STAT LAB 2022-02-19 11:41:26 [facility] HGB/HCT (H&H) - STAT LAB 2022-02-19 11:41:26 [facility] POCT-ACT 2022-02-19 11:17:00 Teo Santiago [facility] RRL CRITICAL LABS 2022-02-19 10:46:40 [facility] (ABG,NA,K,H&H,GLUCOSE) Medical C enter CALCIUM, IONIZED 2022-02-19 10:46:40 [facility] BLOOD GAS, ARTERIAL 2022-02-19 10:46:40 [facility] SODIUM NA-STAT LAB 2022-02-19 10:46:40 [facility] POT[facility]-STAT LAB 2022-02-19 10:46:40 Maya, [facility] GLUCOSE-STAT LAB 2022-02-19 10:46:40 [facility] HGB/HCT (H&H) - STAT LAB 2022-02-19 10:46:40 [facility] POCT-ACT 2022-02-19 10:30:00 [facility] BLOOD [facility]AS, ARTERIAL 2022-02-19 09:46:53 [facility] CALCIUM, IONIZED 2022-02-19 09:46:53 [facility] HEMOGLOBIN AND HEMATOCRIT 2022-02-19 09:46:00 Francesco [facility] REPAIR, ANEURYSM, AORTA, 2022-02-19 07:34:00 Haque, Otoniel Dan [facility] THORACIC, DESCENDING Medical Sd ter THORACOTOMY 2022-02-19 07:34:00 HaqueOtoniel [facility] POCT-GLUCOSE METER 2022-02-19 05:55:00 Santiago Villarreal [facility] BASIC METABOLIC PANEL 2022-02-19 05:05:00 Nott, Vera Davenport [facility] MAGNESIUM 2022-02-19 05:05:00 Nott, Vera [facility] PHOSPHORUS 2022-02-19 05:05:00 Nott, [facility] SARS-COV2/RT-PCR ([facility] & 2022-02-19 01:57:00 Jessica Dao [facility] REF LABS) Medical Center PREPARE RBC 2022-02-18 21:10:00 [facility] ABORH, MANUAL 2022-02-18 20:55:00 Alanna Lacy [facility] TYPE AND SCREEN, 2022-02-18 20:08:00 [facility] AUTOMATED Medical Center CBC W/PLT COUNT & AUTO 2022-02-18 04:33:00 Nott, Vera machado [facility] DIFFERENTIAL [facility] (CELLAVISION MANUAL DIFF) 2022-02-18 04:33:00 Nott, Vera burns [facility] CBC W/PLT COUNT & AUTO 2022-02-18 04:33:00 Nott, Vera machado [facility] BASIC METABOLIC PANEL 2022-02-18 04:33:00 Nott, Vera Davenport [facility] MAGNESIUM 2022-02-18 04:33:00 Nott, Vera Davenport [facility] PHOSPHORUS 2022-02-18 04:33:00 Nott, Vera [facility] 2D ECHO W/ DOPPLER 2022-02-17 14:43:[address] (CW/PW/COLOR) [facility] CBC W/PLT COUNT & AUTO 2022-02-17 04:30:00 Nott, Vera [facility] (CELLAVISION MANUAL DIFF) 2022-02-17 04:30:00 Nott, Vera Guaman [facility] CBC W/PLT COUNT & AUTO 2022-02-17 04:30:00 Nott, Vera [facility] BASIC METABOLIC PANEL 2022-02-17 04:30:00 Nott, Vera Davenport [facility] MAGNESIUM 2022-02-17 04:30:00 Nott, Vera Davenport [facility] PHOSPHORUS 2022-02-17 04:30:00 Nott, Vera Ethel [facility] CTA CHEST,ABDOMEN & 2022-02-16 10:48:00 Nott, Vera Bustos [facility] PELVIS - FOR DISSECTION [facility] POCT-GLUCOSE METER 2022-02-16 06:34:00 Santiago Villarreal [facility] CBC W/PLT COUNT & AUTO 2022-02-16 05:45:00 Kylee Renae [facility] (CELLAVISION MANUAL DIFF) 2022-02-16 05:45:00 Kylee Renae CH, I [facility] COMPREHENSIVE METABOLIC 2022-02-16 05:45:00 Oc, Kouame [facility] PANEL [facility] MAGNESIUM 2022-02-16 05:45:00 [facility] PHOSPHORUS 2022-02-16 05:45:00 Oc, [facility] PROTHROMBIN TIME/INR 2022-02-16 05:45:00 Oc [facility] APTT 2022-02-16 05:45:00 Oc, [facility] FIBRINOGEN 2022-02-16 05:45:00 Oc, [facility] CBC W/PLT COUNT & AUTO 2022-02-16 05:45:00 SolitariotVera [facility] HCG, QUANTITATIVE, 2022-02-16 05:45:00 Oc, [facility] HIGH SENSITIVITY TROPONIN 2022-02-16 05:45:00 [facility] I [facility] XR CHEST 1 VIEW PORTABLE 2022-02-16 05:37:00 Oc [facility] / BEDSIDE [facility] VASCULAR DIAGRAM -SCAN 2022-02-16 00:00:00 ProviderArlene Inland [facility] Plan of Care Planned Activity Planned Date Details Comments Source Future Scheduled 2023-02-[address] [facility] Test 00:00:00 Counseling and Medical Cente r Screening (12+) [code = Tobacco Cessation Counseling and Screening (12+)] Future Scheduled 2022-04-[address] [facility] Test 00:00:00 (12+) [code = [facility] Center DEPRESSION SCREENING (12+)] Future Scheduled 2021-12-11 INFLUENZA VACCINE (#1) [facility] 00:00:00 [code = INFLUENZA Medical Ce nter VACCINE (#1)] Future Scheduled 2019 Lipid panel (procedure) [facility] Test 00:00:00 [code = 31300485] Medical Ce nter Future Scheduled 1995 Screening for malignant [facility] Test 00:00:00 neoplasm of cervix Medical C enter (procedure) [code = 705367245] Future Scheduled 1993 DTAP/TDAP/TD VACCINES [facility] Test 00:00:00 (1 - Tdap) [code = Medical C enter DTAP/TDAP/TD VACCINES (1 - Tdap)] Future Scheduled 1992 HEPATITIS C SCREENING [facility] Test 00:00:00 [code = HEPATITIS C Medical Center SCREENING] Future Scheduled [address] [facility] Test 00:00:00 0-64 YRS (1 - PCV) Medical C enter [code = PNEUMOCOCCAL VACCINE 0-64 YRS (1 - PCV)] Future Scheduled 1974 COVID-19 VACCINE (#1) [facility] Test 00:00:00 [code = COVID-[address] VACCINE (#1)] Future Scheduled 1974 CT Colonography (combo) [facility] Test 00:00:00 [code = CT Colonography [facility] (combo)] Future Scheduled 1974 Screening for malignant [facility] Test 00:00:00 neoplasm of colon Medical Ce nter (procedure) [code = 338610807] Future Scheduled 1974 Screening for malignant [facility] Test 00:00:00 neoplasm of colon Medical Ce nter (procedure) [code = 176968047] Future Scheduled 1974 Screening for malignant [facility] Test 00:00:00 neoplasm of colon Medical Ce nter (procedure) [code = 892711669] Future Scheduled 1974 Screening for malignant [facility] Test 00:00:00 neoplasm of colon Medical Ce nter (procedure) [code = 122630936] Future Scheduled 1975 Sigmoidoscopy [code = [facility] Test 00[facility]00:00 Sigmoidoscopy] Medical Cente r Encounters Start End Encounter Admission Attending Care Care Encounter Source Date/Time Date/Time Type Type Clinicians Facility Department ID 2022-02-16 2022-02-24 [facility] Frank Leone [facility] [id number] [facility] [facility] 04:46:00 12:46:00 Encounter Santiago Villarreal [facility] 2022-02-16 2022-02-24 Inpatient ER SANTIAGO VILLARREAL Surgery [id number] [facility] 04:46:00 12:46:00 2022-02-19 2022-02-[address] [facility] [id number] [facility] St 07:52:00 14:28:00 Event Babatunde [facility] 2022-02-19 2022-02-[address] [facility] [id number] [facility] St 07:30:00 13:00:00 R [facility] 2022-02-16 2022-02-16 Outpatient [facility] [id number] [facility] 04:46:00 23:59:00 [facility] 2022-02-16 2022-02-16 Travel [facility] [id number] [facility] 00:00:00 00:00:00 [facility] Results Test Description Test Time Test Comments Results Result [facility] e Comments RAD, CHEST, 1 2022-02-10 Reason for VIEW, NON DEPT 5 exam:->Post op chest 07:55:00 tubes, atelectasis, effusion, [facility] - pneumothorax, MEDICAL CENTERName: tamponadeShould this MAC, KEVYN MAY be performed at the : 1975 bedside?->Yes Sex: F FINAL REPORT RAD, CHEST, 1 VIEW, NON DEPT INDICATION: Post op chest tubes, atelectasis, effusion, pneumothorax, tamponade COMPARISON: Prior day's exam FINDINGS: Portable frontal view of the chest. IMPRESSION: Support Lines: Overlying leads/monitors. Lungs and pleura: Platelike atelectasis within the left lower lobe No significant pneumothorax. Heart and mediastinum: Normal contours. Additional findings: None. Signed: Della Hardenisabel Verified Date/Time: 02/24/2022 07:55:43 Reading Location: [address] Reading Room -Glucose meter 2022-02-24 07:54:21 Test Item Value Reference Range Interpretation Comme nts POC-Glucose Meter (test code = 87 mg/dL 70-110 : TESTED AT [facility] [address] [facility]) [facility], [address] 30: Civil Structural Engineer/Techni rosa ID = [id number] for EVA RED Lab Interpretation (test code = Normal 41491-0) [facility] [id number] 07:54:21 Test Item Value Reference Range Interpretation Comments POC-GLUCOSE METER 87 mg/dL 70-110 : TESTED A T [facility] 67[address] (BEAKER) (test code = BERT[facility], 1538) [address]: Civil Structural Engineer/Techni rosa ID = [id number] for AMIE RODRIGUEZ [id number] 06:50:48 Test Item Value Reference Range Interpretation Comments MAGNESIUM (BEAKER) (test code = 2.1 mg/dL 1.6-2.6 627) Civil Structural Engineer ID - KATIE MPROTHROMBIN TIME/[id number] 06:29:19 Test Item Value Reference Range Interpretation Comments PROTIME (BEAKER) 14.0 seconds 11.9-14.2 (test code = 759) INR (BEAKER) (test 1.10 See_Comment [Automat ed message] code = 370) The system [employer] generated this result transmitted ref erence range: <=5.90. The reference range was not used to int erpret this result as normal/abnormal . RECOMMENDED COUMADIN/WARFARIN INR THERAPY RANGESSTANDARD DOSE: 2.0 - 3.0 Includes: PROPHYLAXIS for venous thrombosis, systemic embolization; TREATMENT for venous thrombosis and/or pulmonary embolus.HIGH RISK: Target INR is 2.5-3.5 for patients with mechanical heart valves.POCT-GLUCOSE [id number] 21:01:30 Test Item Value Reference Range Interpretation Comments POC-GLUCOSE METER 101 mg/dL 70-110 : TESTED A T [facility] 6720 (BEAKER) (test code = [facility], 1538) [address]: Civil Structural Engineer/Techni rosa ID = [id number] for MARISSA RIOS POCT-GLUCOSE [id number] 16:58:48 Test Item Value Reference Range Interpretation Comments POC-GLUCOSE METER 83 mg/dL 70-110 : TESTED A T [facility] 6720 ([facility]) (test code = [facility], 1538) [address]: Civil Structural Engineer/Techni rosa ID = [id number] for WILL IAMS, TYNEKA POCT-GLUCOSE [id number] 12:15:59 Test Item Value Reference Range Interpretation Comments POC-GLUCOSE METER 75 mg/dL 70-110 : TESTED A T [facility] [address] ([facility] (test code = [facility], 1538) [address]: Civil Structural Engineer/Techni rosa ID = [id number] for WILL IAMS, TYNEKA POCT-GLUCOSE [id number] 08:39:03 Test Item Value Reference Range Interpretation Comments POC-GLUCOSE METER 91 mg/dL 70-110 : TESTED A T [facility] 6720 (BEAKER) (test code = [facility], 1538) [address]: Civil Structural Engineer/Techni rosa ID = [id number] for WILL IAMS, TYNEKA RAD, CHEST, 1 VIEW, NON [id number] 08:05:00Reason for exam:->Post op chest tubes, atelectasis, effusion, pneumothorax, tamponadeShould this be performed at the bedside?->Yes [facility]YN WATTS ROMÁN : 1975 Sex: FFINAL REPORT RAD, CHEST, 1 VIEW, NON DEPT INDICATION: Post op chest tubes, atelectasis,effusion, pneumothorax, tamponade COMPARISON: Prior day's exam FINDINGS: Portable frontal view of the chest. IMPRESSION: Support Lines: Stella-Peter tip overlies the pulmonary outflow tract. Left chest tubes. Lungs and pleura: Left basilar airspace opacities. Unchanged mild interstitial thickening throughout the left lung. No significant pneumothorax. Heart and mediastinum: Stable contours. Additional findings: None. Signed: Della Harden Verified Date/Time: 02/23/2022 08:05:48 Reading Location: [address] Reading Room [id number] 06:35:32 Test Item Value Reference Range Interpretation Comments MAGNESIUM (BEAKER) (test code = 2.1 mg/dL 1.6-2.6 627) Civil Structural Engineer ID - KATIE MPROTHROMBIN TIME/[id number] 05:50:17 Test Item Value Reference Range Interpretation Comments PROTIME (BEAKER) 14.4 seconds 11.9-14.2 H (test code = 759) INR (BEAKER) (test 1.19 See_Comment [Automat ed message] code = 370) The system [employer] generated this result transmitted ref erence range: <=5.90. The reference range was not used to int erpret this result as normal/abnormal . RECOMMENDED COUMADIN/WARFARIN INR THERAPY RANGESSTANDARD DOSE: 2.0 - 3.0 Includes: PROPHYLAXIS for venous thrombosis, systemic embolization; TREATMENT for venous thrombosis and/or pulmonary embolus.HIGH RISK: Target INR is 2.5-3.5 for patients with mechanical heart valves.POCT-GLUCOSE [id number] 21:11:53 Test Item Value Reference Range Interpretation Comments POC-GLUCOSE METER 102 mg/dL 70-110 : TESTED A T [facility] 6720 (BEAKER) (test code = [place], 1538) [address]: Civil Structural Engineer/Techni rosa ID = [id number] for RAYNE PACHECO POCT-GLUCOSE [id number] 17:07:55 Test Item Value Reference Range Interpretation Comments POC-GLUCOSE METER 93 mg/dL 70-110 : TESTED A T [facility] 6720 (BEAKER) (test code = [place], 1538) [address]: Civil Structural Engineer/Techni rosa ID = [id number] for Nima Medina RAD, CHEST, 1 VIEW, NON [id number] 13:31:00Reason for exam:->s/p chest tube pulledShould this be performed at the bedside?->Yes [facility] 1975 Sex: FFINAL REPORT Chest, 1 view, 02/22/2022 11:00 AM. History: Chest 2 removal. Comparison: 02/22/2022. Discussion: The cardiomediastinal silhouette and pulmonary vasculature are within normal limits for a portable exam. Multiple surgical clips are present in the left mediastinum. Left-sided chest tubes are no longer present. There is no visible pneumothorax. Patchy bibasilar opacities are unchanged. The soft tissues and osseous structures are intact. IMPRESSION: No evidence of pneumothorax post chest tube removal. Signed: Sina Gunter Verified Date/Time: 02/22/2022 13:31:08 POCT-GLUCOSE [id number] 11:30:41 Test Item Value Reference Range Interpretation Comments POC-GLUCOSE METER 107 mg/dL 70-110 : TESTED A T [facility] 6720 (BEAKER) (test code = [place] [facility], 1538) [address]: Civil Structural Engineer/Techni rosa ID = [id number] for Do Nima moore RAD, CHEST, 1 VIEW, NON [id number] 10:11:00Reason for exam:->Post op chest tubes, atelectasis, effusion, pneumothorax, tamponadeShould this be performed at the bedside?->Yes [facility] : 1975 Sex: FFINAL REPORT Chest one view. Clinical history: Post op chest tubes, atelectasis, effusion, pneumothorax, tamponade Comparison: 02/21/2022 Discussion: A frontal chest is provided. Cardiomediastinal contours are unchanged. Lines and tubes are in stable position. Bibasilar opacities are uncha nged. No definite new consolidation. No pneumothorax. No large effusion. 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 ID - PIAYA LBASIC METABOLIC [id number] 08:36:50 Test Item Value Reference Range Interpretation Comments SODIUM (BEAKER) 135 meq/L 136-145 L (test code = 381) POTASSIUM 4.7 meq/L 3.5-5.1 (BEAKER) (test code = 379) CHLORIDE (BEAKER) 102 meq/L 98-107 (test code = 382) CO2 (BEAKER) 25 meq/L 22-29 (test code = 355) BLOOD UREA 8 mg/dL 7-21 NITROGEN (BEAKER) (test code = 354) CREATININE 0.61 mg/dL 0.57-1.25 (BEAKER) (test code = 358) GLUCOSE RANDOM 75 mg/dL 70-105 (BEAKER) (test code = 652) CALCIUM (BEAKER) 8.1 mg/dL 8.4-10.2 L (test code = 697) EGFR (BEAKER) 111 Interpretatio n of eGFR (test code = mL/min/1.73 values Stage De scription 1092) sq m Result G1 Niharika l or high >=90 G2 Mildly decreased 60-89 G3a Mildl y to moderately 45-5 9 G3b Moderately to s everely 30-44 G4 Sever ly decreased 15-29 G5 Kidney failure <15Repo rted eGFR is based on the CKD-EPI 2020 equation t hat does not use a race coefficientEsti mated GFR is not as accur ate as Creatinine Michaelle cleary in predicting glom erular filtration rate . Estimated GFR is not appl icable for dialysis patien ts Civil Structural Engineer ID - PRATIBHAPIA [id number] 08:36:50 Test Item Value Reference Range Interpretation Comments MAGNESIUM (BEAKER) (test code = 2.1 mg/dL 1.6-2.6 627) Civil Structural Engineer ID - SARAH LPOCT-GLUCOSE [id number] 08:11:51 Test Item Value Reference Range Interpretation Comments POC-GLUCOSE METER 75 mg/dL 70-110 : TESTED A T [facility] 6720 (BEAKER) (test code = [facility], 153) 06[address]: Civil Structural Engineer/Techni rosa ID = [id number] for Nima Medina POCT-GLUCOSE [id number] 23:25:43 Test Item Value Reference Range Interpretation Comments POC-GLUCOSE METER 84 mg/dL 70-110 : TESTED A T [facility] 6720 (BEAKER) (test code = [facility], 1538) 94365: Civil Structural Engineer/Techni rosa ID = [id number] for RAYNE GARCIA POCT-GLUCOSE [id number] 17:02:28 Test Item Value Reference Range Interpretation Comments POC-GLUCOSE METER 123 mg/dL 70-110 H : TESTED A T [facility] 6720 (BEAKER) (test code = [facility], 1538) 28686: Civil Structural Engineer/Techni rosa ID = [id number] for Do Nima moore POCT-GLUCOSE [id number] 12:56:08 Test Item Value Reference Range Interpretation Comments POC-GLUCOSE METER 180 mg/dL 70-110 H : TESTED A T [facility] 6720 (BEAKER) (test code = [facility], 1538) 98327: Civil Structural Engineer/Techni rosa ID = [id number] for Amber Prieto POCT-GLUCOSE [id number] 11:46:10 Test Item Value Reference Range Interpretation Comments POC-GLUCOSE METER 208 mg/dL 70-110 H : TESTED A T [facility] 6720 (BEAKER) (test code = [facility], 1538) 49361: Civil Structural Engineer/Techni rosa ID = [id number] for Do Joseph mooren RAD, CHEST, 1 VIEW, NON [id number] 08:55:00Reason for exam:->Post op chest tubes, atelectasis, effusion, pneumothorax, tamponadeShould this be performed at the bedside?->Yes [facility] 1975 Sex: FFINAL REPORT RAD, CHEST, 1 VIEW, NON DEPT INDICATION: Post op chest tubes, atelectasis,effusion, pneumothorax, tamponade COMPARISON: Prior day's exam FINDINGS: Portable frontal view of the chest. IMPRESSION: Support Lines: Stella-Peter tip overlies the pulmonary outflow tract. Left chest tubes. Lungs and pleura: Left basilar airspace opacities. Moderate interstitial thickening throughout the left lung. No significant pneumothorax. Heart and mediastinum: Stable contours. Additional findings: None. Signed: Della Harden Verified Date/Time: 02/21/2022 08:55:39 Reading Location: [address] Reading Room POCT-GLUCOSE [id number] 08:11:17 Test Item Value Reference Range Interpretation Comments POC-GLUCOSE METER 89 mg/dL 70-110 : TESTED A T [facility] 6720 (BEAKER) (test code = [facility], 1538) 56135: Civil Structural Engineer/Techni rosa ID = [id number] for Nima Medina POCT-GLUCOSE [id number] 07:46:24 Test Item Value Reference Range Interpretation Comments POC-GLUCOSE METER 68 mg/dL 70-110 L : TESTED A T [facility] 6720 (BEAKER) (test code = [facility] [employer] [facility], 1538) 216[address]: Civil Structural Engineer/Techni rosa ID = [id number] for Nima Medina BASIC METABOLIC [id number] 06:22:29 Test Item Value Reference Range Interpretation Comments SODIUM (BEAKER) 130 meq/L 136-145 L (test code = 381) POTASSIUM 4.0 meq/L 3.5-5.1 (BEAKER) (test code = 379) CHLORIDE (BEAKER) 98 meq/L 98-107 (test code = 382) CO2 (BEAKER) 24 meq/L 22-29 (test code = 355) BLOOD UREA 7 mg/dL 7-21 NITROGEN (BEAKER) (test code = 354) CREATININE 0.59 mg/dL 0.57-1.25 (BEAKER) (test code = 358) GLUCOSE RANDOM 71 mg/dL 70-105 (BEAKER) (test code = 652) CALCIUM (BEAKER) 7.6 mg/dL 8.4-10.2 L (test code = 697) EGFR (BEAKER) 112 Interpretatio n of eGFR (test code = mL/min/1.73 values Stage De scription 1092) sq m Result G1 Niharika l or high >=90 G2 Mildly decreased 60-89 G3a Mildl y to moderately 45-5 9 G3b Moderately to s everely 30-44 G4 Severl y decreased 15-29 G5 Kidney failure <15Reported eGF R is based on the CKD-EPI 2020 equation that d oes not use a race coefficientEsti mated GFR is not as accur ate as Creatinine Michaelle evin in predicting glom erular filtration rate . Estimated GFR is not appl icable for dialysis patien ts Civil Structural Engineer ID - [id number] 05:31:55 Test Item Value Reference Range Interpretation Comments MAGNESIUM (BEAKER) (test code = 1.8 mg/dL 1.6-2.6 627) Civil Structural Engineer ID - [id number] 05:31:55 Test Item Value Reference Range Interpretation Comments PHOSPHORUS (BEAKER) (test code = 1.8 mg/dL 2.3-4.7 L 604) Civil Structural Engineer ID - [id number] 05:17:07 Test Item Value Reference Range Interpretation Comments PARTIAL THROMBOPLASTIN TIME 32.1 seconds 22.5-36.0 (BEAKER) (test code = 760) PROTHROMBIN [id number] 05:16:21 Test Item Value Reference Range Interpretation Comments PROTIME (BEAKER) 16.0 seconds 11.9-14.2 H (test code = 759) INR (BEAKER) (test 1.36 See_Comment [Automat ed message] code = 370) The system [employer] generated this result transmitted ref erence range: <=5.90. The reference range was not used to int erpret this result as normal/abnormal . RECOMMENDED COUMADIN/WARFARIN INR THERAPY RANGESSTANDARD DOSE: 2.0 - 3.0 Includes: PROPHYLAXIS for venous thrombosis, systemic embolization; TREATMENT for venous thrombosis and/or pulmonary embolus.HIGH RISK: Target INR is 2.5-3.5 for patients with mechanical heart valves.CBC (HEMOGRAM ONLY)2022-02-21 05:00:59 Test Item Value Reference Range Interpretation Comments WHITE BLOOD CELL COUNT (BEAKER) 11.7 K/ L 3.5-10.5 H (test code = 775) RED BLOOD CELL COUNT (BEAKER) 3.94 M/ L 3.93-5.22 (test code = 761) HEMOGLOBIN (BEAKER) (test code = 11.6 GM/DL 11.2-15.7 410) HEMATOCRIT (BEAKER) (test code = 35.8 % 34.1-44.9 411) MEAN CORPUSCULAR VOLUME (BEAKER) 91 fL 79-95 (test code = 753) MEAN CORPUSCULAR HEMOGLOBIN 29.4 pg 25.6-32.2 (BEAKER) (test code = 751) MEAN CORPUSCULAR HEMOGLOBIN CONC 32.4 GM/DL 32.2-35.5 (BEAKER) (test code = 752) RED CELL DISTRIBUTION WIDTH 14.1 % 11.7-14.4 (BEAKER) (test code = 412) PLATELET COUNT (BEAKER) (test 177 K/CU MM 150-450 code = 756) MEAN PLATELET VOLUME (BEAKER) 9.9 fL 9.4-12.3 (test code = 754) NUCLEATED RED BLOOD CELLS 0 /100 WBC 0-0 (BEAKER) (test code = 413) Prepare [id number] 23:54:00 Test Item Value Reference Range Interpretation Comments CROSSMATCH (test code = COMPATIBLE 4) Unit ABO (test code = O Pos 6597914) UNIT NUMBER (test code = [id number] 934-0) Status (test code = RETURNED FROM ISSUE 5077185) Blood Bank Product (test RED BLOOD CELLS code = 2263) PRODUCT CODE (test code = J5618R80 933-2) [facility] [id number] 23:54:00 Test Item Value Reference Range Interpretation Comments Unit ABO (test code = O Neg 0245667) UNIT NUMBER (test code = [id number] 934-0) Status (test code = RETURNED FROM ISSUE 3264321) Blood Bank Product (test FFP code = 2263) PRODUCT CODE (test code = [id number] 933-2) [facility], CHEST, ABDOMEN - PELVIS, FOR DISSECTION 2022-02-20 13:39:00Unlisted Reason for Exam - Click Yes and Enter Reason Below->No[facility] : 1975 Sex: FAddendum BeginsREPORT STATUS:A Addendum: I agree with the previously described non vascular findings by Dr. Camp. Signed: Brendon Sharp MDReport Verified Date/Time: 02/20/2022 13:39:21 Reading Location: [facility] Radiology Reading RoomAddendum EndsFINAL REPORT CT angiography of the thoracoabdominal aorta and pelvic arteries, 16-Feb-22 INDICATION: This is a 46 year old female with diagnosis of thoracic aortic aneurysm presents for assessment. TECHNIQUE: Spiral acquisition before and during intravenous contrast administration using a Siemens multidetector CT scanner. Images were obtained before and during the dynamic passage of intravenous contrast material. Multi-planar 3-D volume-rendering reconstruction was performed using an independent workstation interactively by the interpreting physician as well as the 3-D specialist for optimal visualisation of the thoracoabdominal aorta, the pelvic arteries as well as its proximal branches. Please refer to the contrast sheet scanned in the EPIC system for the amount and route of contrast given. This exam was performed according to our departmental dose-optimisation programme, which includes automated exposure control, adjustment of the mA and/or kV according to patient size and/or use of iterative reconstruction technique. Dose modulation, iterative reconstruction, and/or weight based adjustment of the mA/kV was utilized to reduce the radiation dose to as low as reasonably achievable. FINDINGS: VASCULAR: The central pulmonary artery is normal in calibre. The cardiac chambers demonstrate normal atrioventricular and ventriculoarterial concordance, and systemic and pulmonary venous return. The left ventricle is normalin size. Left atrial size is unremarkable. No mitral annular calcification is seen. No aortic valvular calcification is present. Coronary artery origins are normal. The right coronary artery is widely patent in the proximal segment. Much of the mid segment is widely patent with motion artefact identified in the short segment. The distal RCA is also widely patent. The left main coronary artery is widely patent. The proximal and mid LAD is widely patent. The proximal LCx is widely patent. No coronary artery calcification is identified. Regarding the aorta, the aortic root and ascending thoracic aortais unremarkable. The transverse arch itself is unremarkable. Arch vessel are widely patent proximally and the arch vessel branching pattern is normal. However, there is increased separation regarding the distance between the take off of the left common carotid artery and the left subclavian artery. The proximal descending thoracic aorta is tortuous. Please see reformatted data set for details. No obvious discrete narrowing is identified that may suggest diagnosis of coarctation of aorta. No prior left lateral thoracotomy is identified. However, an outpouching is identified in the left lateral aspect where the proximal descending thoracic aorta is tortuous, and the outpouching itself probably measure approximately 2.6 x 2.4 cm in one plane and 2.4 x 2.6 cm in another plane. Please see snapshot fordetails. Distal to the outpouching, the segment of the proximal descending thoracic aorta is also tortuous. Thereafter, the mid and distal descending thoracic aorta and the abdominal aorta is normal incalibre. There is no dissection or contained rupture is identified. No extravasation of contrast is identified. Again, no rib injury is noted. No haematoma is identified. No stranding is identified adjacent to the soft tissue structures. Quantitaive dimensions of the aorta are as follows: 2.7 cm at the sinuses of Valsalva (the sino-tubular junction is preserved); 2.7 cm at the proximal ascending thoracic aorta; 3.7 x 3.5 cm at the mid ascending aorta; 2.5 cm at the distal ascending aorta; 1.8 x 1.6 cm at the mid transverse arch; 1.9 x 1.8 cm immediately above the outpouching; 2.1 x 2.2 cm immediately distal to the outpouching; 2.4 x 2.2 cm at the mid ascending thoracic aorta; 1.8 cm at the diaphragmatic hiatus. In the abdomen, the aorta measures 1.6 cm at the mesenteric segment; 1.2 cm at the renal segment,; and 1.3 cm at the aortic bifurcation. The common iliac, external iliac, common femoral, and the visualized superficial femoral arteries, bilaterally, are widely patent with no obstructive lesion identified. The coeliac axis, SMA, EMMY are widely patent. Single left and right renal arteries are seen that are widely patent. Single left and right renal veins are seen draining into the IVC. NON-VASCULAR: The thyroid gland is unremarkable. The chest wall and mediastinum appear normal. No significant adenopathy is identified. In the lung windows, no obvious endobronchial lesion is seen and no pleural effusion is identified. There are multiple nodules identified in both lung cueto, there are all less than 6 mm in size. See annotation for details. In the abdomen, the liver and spleen appears u nremarkable. No abnormal enhancing structure is identified. Liver edge is smooth. Vicarious excretion of contrast is identified in the gallbladder. The adrenal glands, and the pancreas appears unremarkable. The kidneys are normal in size and shape. No hydronephrosis or perirenal fluid collection is identified. Bowel is not well assessed by CT angiography as enteric contrast is not given. No obvious bowel dilation is seen. Most likely patient is post appendectomy. There is no significant retroperitoneal adenopathy. No free fluid or free air is identified. The uterus is present. No abnormal adnexal mass is seen. The bladder is full of contrast. No acute bony pathology is seen. No dural ectasia is baron ntified. CONCLUSIONS: 1. Ascending thoracic aorta is unremarkable. The transverse arch is unremarkable. The mid and distal descending thoracic aorta is unremarkable. The abdominal aorta is unremarkable. No acute aortic dissection is identified. No extravasation of contrast is seen. Better seen in the 3-D reconstruction data set, the proximal descending thoracic aorta is tortuous. The 3-D data set will provide better visualization of the proximal descending thoracic aorta. In the left lateral aspect the proximal descending thoracic aorta, outpouching is identified and may represent a pseudoaneurysm.Clinical aetiology is uncertain. No rib injury is identified, no haematoma is seen. No thrombus is identified. Please refer to snapshot for details regarding the morphology of this finding. Immediatelydistal to the outpouching, the proximal descending thoracic aorta is still very tortuous. Quantitative dimension of the thoracoabdominal aorta are as described above. Attempt was made to provide some relative and dimensions, however, due to tortuosity in the outpouching, it is difficult to provide measurements. 2. Normal coronary artery origins. No obvious coronary artery calcification is seen. The proximal coronary arteries are seen to be widely patent. 3. No acute pulmonary pathology is identified. A number of small pulmonary nodules are seen, and see arrow in PACS for indication. There are all less than 6 mm in size. Professional society recommendation as follows: 2017 Fleischner Society Recommendations for Multiple Solid Lung Nodules Follow- Up base on size (average of long- and short-axis diameters). Use most suspicious nodule for followup. Nodule Size <6 mm Low-Risk Patient: No routine follow-up Nodule Size <6 mm High-Risk Patient: Optional CT at 12 months 4. Other findings as described above. 5. An addendum will be dictated by the [facility] Radiologist regarding the nonvascular findings. THE REPORT WILL ONLY BE CONSIDERED COMPLETE AFTER THE ADDENDUM HAS BEEN DICTATED. Signed: Johnathan Camp MDReport Verified Date/Time: 02/17/2022 16:40:13 RAD, CHEST, 1 VIEW, NON DEPT 2022-02-20 08:22:00Reason for exam:->Post op chest tubes, atelectasis, effusion, pneumothorax, tamponadeShould this be performed at the bedside?->Yes[facility] : 1975 Sex: FFINAL REPORT RAD, CHEST, 1 VIEW, NON DEPT INDICATION: Post op chest tubes, atelectasis,effusion, pneumothorax, tamponade COMPARISON: Prior day's exam FINDINGS: Portable frontal view of the chest. IMPRESSION: Support Lines: NG tube descends below the diaphragm. Stella-Peter tip overlies the pulmonary outflow tract. Left chest tubes. Lungs and pleura: New diffuse interstitial thickening, representing singly or in combination, interstitial edema and/or pneumonitis. No significant pneumothorax. Heart and mediastinum: Stable contours. Additional findings: None. Signed: Della Harden Verified Date/Time: 02/20/2022 08:22:33 Reading Location: [address] Reading Room POC ACTIVATED CLOTTING [id number] 06:24:22 Test Item Value Reference Range Interpretation Comments Activated Clotting Time 121 sec : 74 -137 seconds, (test code = 3184-9) Baselin e: TESTED AT [address], [facility] 30: Civil Structural Engineer/Techni rosa ID = [id number] for Le , Gray [id number] 06:24:22 Test Item Value Reference Range Interpretation Comments ACTIVATED CLOTTING TIME 121 sec : 74 -137 seconds, (BEAKER) (test code = Baseli ne: TESTED AT 441) [address], 770 30: Civil Structural Engineer/Techni rosa ID = [id number] for Le , Gray [id number] 06:24:22 Test Item Value Reference Range Interpretation Comments ACTIVATED CLOTTING TIME 271 sec : 74 -137 seconds, (BEAKER) (test code = Baseli ne: TESTED AT 441) [address], [facility] 30: Civil Structural Engineer/Techni rosa ID = [id number] for Le , Gray [id number] 06:24:21 Test Item Value Reference Range Interpretation Comments ACTIVATED CLOTTING TIME 237 sec : 74 -137 seconds, (BEAKER) (test code = Baseli ne: TESTED AT 441) [address], [facility] 30: Civil Structural Engineer/Techni rosa ID = [id number] for Le , Gray [id number] 06:24:20 Test Item Value Reference Range Interpretation Comments ACTIVATED CLOTTING TIME 277 sec : 74 -137 seconds, (BEAKER) (test code = Baseli ne: TESTED AT 441) [facility] [address] [place], [address]: Civil Structural Engineer/Techni rosa ID = [id number] for Marina Jolly OXYGEN SATURATION, [id number] 04:06:04 Test Item Value Reference Range Interpretation Comments O2 SATURATION (MEASURED) (BEAKER) 90.1 % (test code = 1455) BASIC METABOLIC [id number] 04:05:14 Test Item Value Reference Range Interpretation Comments SODIUM (BEAKER) 137 meq/L 136-145 (test code = 381) POTASSIUM 4.4 meq/L 3.5-5.1 (BEAKER) (test code = 379) CHLORIDE (BEAKER) 105 meq/L 98-107 (test code = 382) CO2 (BEAKER) 24 meq/L 22-29 (test code = 355) BLOOD UREA 5 mg/dL 7-21 L NITROGEN (BEAKER) (test code = 354) CREATININE 0.61 mg/dL 0.57-1.25 (BEAKER) (test code = 358) GLUCOSE RANDOM 105 mg/dL 70-105 (BEAKER) (test code = 652) CALCIUM (BEAKER) 7.8 mg/dL 8.4-10.2 L (test code = 697) EGFR (BEAKER) 111 Interpretati on of eGFR (test code = mL/min/1.73 values Stage De scription 1092) sq m Result G1 Niharika l or high >=90 G2 Mildly decreased 60-89 G3a Mildl y to moderately 45-5 9 G3b Moderately to s everely 30-44 G4 Severl y decreased 15-29 G5 Kidney failure <15Reported eGF R is based on the CKD-EPI 2020 equation that d oes not use a race coefficientEsti mated GFR is not as accur ate as Creatinine Michaelle cleary in predicting glom erular filtration rate . Estimated GFR is not appl icable for dialysis patien ts Civil Structural Engineer ID - [id number] 03:53:40 Test Item Value Reference Range Interpretation Comments PARTIAL THROMBOPLASTIN TIME 33.2 seconds 22.5-36.0 (BEAKER) (test code = 760) [id number] 03:53:00 Test Item Value Reference Range Interpretation Comments PHOSPHORUS (BEAKER) (test code = 4.8 mg/dL 2.3-4.7 H 604) Civil Structural Engineer ID - [id number] TIME/[id number] 03:53:00 Test Item Value Reference Range Interpretation Comments PROTIME (BEAKER) 16.3 seconds 11.9-14.2 H (test code = 759) INR (BEAKER) (test 1.34 See_Comment [Automat ed message] code = 370) The system [employer] generated this result transmitted ref erence range: <=5.90. The reference range was not used to int erpret this result as normal/abnormal . RECOMMENDED COUMADIN/WARFARIN INR THERAPY RANGESSTANDARD DOSE: 2.0 - 3.0 Includes: PROPHYLAXIS for venous thrombosis, systemic embolization; TREATMENT for venous thrombosis and/or pulmonary embolus.HIGH RISK: Target INR is 2.5-3.5 for patients with mechanical heart valves.[id number] 03:52:59 Test Item Value Reference Range Interpretation Comments MAGNESIUM (BEAKER) (test code = 1.4 mg/dL 1.6-2.6 L 627) Civil Structural Engineer ID - [id number] (HEMOGRAM ONLY)2022-02-20 03:17:33 Test Item Value Reference Range Interpretation Comments WHITE BLOOD CELL COUNT (BEAKER) 13.3 K/ L 3.5-10.5 H (test code = 775) RED BLOOD CELL COUNT (BEAKER) 3.78 M/ L 3.93-5.22 L (test code = 761) HEMOGLOBIN (BEAKER) (test code = 11.1 GM/DL 11.2-15.7 L 410) HEMATOCRIT (BEAKER) (test code = 34.4 % 34.1-44.9 411) MEAN CORPUSCULAR VOLUME (BEAKER) 91 fL 79-95 (test code = 753) MEAN CORPUSCULAR HEMOGLOBIN 29.4 pg 25.6-32.2 (BEAKER) (test code = 751) MEAN CORPUSCULAR HEMOGLOBIN CONC 32.3 GM/DL 32.2-35.5 (BEAKER) (test code = 752) RED CELL DISTRIBUTION WIDTH 14.3 % 11.7-14.4 (BEAKER) (test code = 412) PLATELET COUNT (BEAKER) (test 136 K/CU MM 150-450 L code = 756) MEAN PLATELET VOLUME (BEAKER) 10.2 fL 9.4-12.3 (test code = 754) NUCLEATED RED BLOOD CELLS 0 /100 WBC 0-0 (BEAKER) (test code = 413) BASIC METABOLIC [id number] 15:56:08 Test Item Value Reference Range Interpretation Comments SODIUM (BEAKER) 140 meq/L 136-145 (test code = 381) POTASSIUM 3.8 meq/L 3.5-5.1 Specimen slight ly (BEAKER) (test hemolyzed code = 379) CHLORIDE (BEAKER) 108 meq/L 98-107 H (test code = 382) CO2 (BEAKER) 23 meq/L 22-29 (test code = 355) BLOOD UREA 7 mg/dL 7-21 NITROGEN (BEAKER) (test code = 354) CREATININE 0.68 mg/dL 0.57-1.25 Specimen slight ly (BEAKER) (test hemolyzed code = 358) GLUCOSE RANDOM 105 mg/dL 70-105 (BEAKER) (test code = 652) CALCIUM (BEAKER) 9.9 mg/dL 8.4-10.2 (test code = 697) EGFR (BEAKER) 108 Interpretatio n of eGFR (test code = mL/min/1.73 values Stage De scription 1092) sq m Result G1 Niharika l or high >=90 G2 Mildly decreased 60-89 G3a Mild ly to moderately 45-5 9 G3b Moderately to s everely 30-44 G4 Severl y decreased 15-29 G5 Kidney failure <15Reported eGF R is based on the CKD-EPI 2020 equation that d oes not use a race coefficientEsti mated GFR is not as accur ate as Creatinine Michaelle cleary in predicting glom erular filtration rate . Estimated GFR is not appl icable for dialysis patien ts Civil Structural Engineer ID - [id number] 15:53:03 Test Item Value Reference Range Interpretation Comments MAGNESIUM (BEAKER) 1.7 mg/dL 1.6-2.6 Specimen slightly (test code = 627) hemolyzed Civil Structural Engineer ID - [id number] 15:53:03 Test Item Value Reference Range Interpretation Comments PHOSPHORUS (BEAKER) 4.0 mg/dL 2.3-4.7 Specimen slightly (test code = 604) hemolyzed Civil Structural Engineer ID - [id number] 15:42:57 Test Item Value Reference Range Interpretation Comments PARTIAL THROMBOPLASTIN TIME 30.9 seconds 22.5-36.0 (BEAKER) (test code = 760) PROTHROMBIN TIME/[id number] 15:41:58 Test Item Value Reference Range Interpretation Comments PROTIME (BEAKER) 15.1 seconds 11.9-14.2 H (test code = 759) INR (BEAKER) (test 1.22 See_Comment [Automat ed message] code = 370) The system [employer] generated this result transmitted ref erence range: <=5.90. The reference range was not used to int erpret this result as normal/abnormal . RECOMMENDED COUMADIN/WARFARIN INR THERAPY RANGESSTANDARD DOSE: 2.0 - 3.0 Includes: PROPHYLAXIS for venous thrombosis, systemic embolization; TREATMENT for venous thrombosis and/or pulmonary embolus.HIGH RISK: Target INR is 2.5-3.5 for patients with mechanical heart valves.CBC W/PLT COUNT & AUTO [id number] 15:34:08 Test Item Value Reference Range Interpretation Comments WHITE BLOOD CELL COUNT (BEAKER) 14.3 K/ L 3.5-10.5 H (test code = 775) RED BLOOD CELL COUNT (BEAKER) 4.42 M/ L 3.93-5.22 (test code = 761) HEMOGLOBIN (BEAKER) (test code = 13.3 GM/DL 11.2-15.7 410) HEMATOCRIT (BEAKER) (test code = 39.5 % 34.1-44.9 411) MEAN CORPUSCULAR VOLUME (BEAKER) 89 fL 79-95 (test code = 753) MEAN CORPUSCULAR HEMOGLOBIN 30.1 pg 25.6-32.2 (BEAKER) (test code = 751) MEAN CORPUSCULAR HEMOGLOBIN CONC 33.7 GM/DL 32.2-35.5 (BEAKER) (test code = 752) RED CELL DISTRIBUTION WIDTH 14.0 % 11.7-14.4 (BEAKER) (test code = 412) PLATELET COUNT (BEAKER) (test 170 K/CU MM 150-450 code = 756) MEAN PLATELET VOLUME (BEAKER) 9.9 fL 9.4-12.3 (test code = 754) NUCLEATED RED BLOOD CELLS 0 /100 WBC 0-0 (BEAKER) (test code = 413) NEUTROPHILS RELATIVE PERCENT 65 % (BEAKER) (test code = 429) LYMPHOCYTES RELATIVE PERCENT 26 % (BEAKER) (test code = 430) MONOCYTES RELATIVE PERCENT 3 % (BEAKER) (test code = 431) EOSINOPHILS RELATIVE PERCENT 5 % (BEAKER) (test code = 432) BASOPHILS RELATIVE PERCENT 1 % (BEAKER) (test code = 437) NEUTROPHILS ABSOLUTE COUNT 9.25 K/ L 1.56-6.13 H (BEAKER) (test code = 670) LYMPHOCYTES ABSOLUTE COUNT 3.64 K/ L 1.18-3.74 (BEAKER) (test code = 414) MONOCYTES ABSOLUTE COUNT (BEAKER) 0.36 K/ L 0.24-0.36 (test code = 415) EOSINOPHILS ABSOLUTE COUNT 0.65 K/ L 0.04-0.36 H (BEAKER) (test code = 416) BASOPHILS ABSOLUTE COUNT (BEAKER) 0.07 K/ L 0.01-0.08 (test code = 417) IMMATURE GRANULOCYTES-RELATIVE 2.00 % 0.00-1.00 H PERCENT (BEAKER) (test code = 2801) RAD, CHEST, 1 VIEW, NON [id number] 15:29:00Reason for exam:->Post-opShould this be performed at the bedside?->Yes [facility] : 1975 Sex: FFINAL REPORT RAD, CHEST, 1 VIEW, NON DEPT INDICATION: Post-op COMPARISON: 02/16/2022 FINDINGS: Portable frontal view of the chest. IMPRESSION: Support Lines: ET tube tip is 3 cm superior tocarina. NG tube descends below the diaphragm. Stella-Peter tip overlies the pulmonary outflow tract. Left chest tubes. Lungs and pleura: Unchanged airspace and pleural opacities. No significant pneumothorax. Heart and mediastinum: Stable contours. Additional findings: None. Signed: Della Harden Verified Date/Time: 02/19/2022 15:29:54 Reading Location: [address] Reading Room Blood gas, [id number] 15:24:13 Test Item Value Reference Range Interpretation Comments pH, Arterial (test code 7.42 7.35-7.45 = 2744-1) pCO2, Arterial (test 38 See_Comment [Autom ated message] code = 2019-8) The system [employer] generated this result transmit lucila reference range : 35 - 45 mm Hg. The reference range was not used to interpret this result as normal/abnormal . pO2, Arterial (test 126 See_Comment H [Automa lucila message] code = 2703-7) The system [employer] generated this result transmit lucila reference range : 80 - 90 mm Hg. The reference range was not used to interpret this result as normal/abnormal . O2 Sat, Arterial (test 98.7 % 96.0-97.0 H code = 2708-6) HCO3, Arterial (test 25 mmol/L 21-29 code = 1960-4) Base Excess, Arterial 0.0 mmol/L -2.0-3.0 (test code = 1925-7) Patient Temperature 36.1 (test code = 8310-5) FIO2 (test code = 1819) 50 Lab Interpretation Abnormal (test code = 31726-7) [facility] [id number] 15:24:13 Test Item Value Reference Range Interpretation Comments PH ARTERIAL (BEAKER) (test code = 7.42 7.35-7.45 383) PCO2 ARTERIAL (BEAKER) (test code 38 mm Hg 35-45 = 384) PO2 ARTERIAL (BEAKER) (test code = 126 mm Hg 80-90 H 385) O2 SATURATION ARTERIAL (BEAKER) 98.7 % 96.0-97.0 H (test code = 386) HCO3 ARTERIAL (BEAKER) (test code 25 mmol/L 21-29 = 388) BASE EXCESS ARTERIAL (BEAKER) 0.0 mmol/L -2.0-3.0 (test code = 387) PATIENT TEMPERATURE (BEAKER) (test 36.1 code = 1818) FIO2 (BEAKER) (test code = 1819) 50.0 OXYGEN SATURATION, [id number] 15:22:59 Test Item Value Reference Range Interpretation Comments O2 SATURATION (MEASURED) (BEAKER) 83.6 % (test code = 1455) Platelet [id number] 13:32:19 Test Item Value Reference Range Interpretation Comments Platelets (test code 103 See_Comment L Discord ant results = 777-3) compared to previous, clini natalie correlation required.Dasha lopez is in CV [place] [Automated message] The system which generated this result transmit lucila reference range : 150 - 450 K/CU MM. The reference range was not u sed to interpret th is result as normal/abnormal . ANTONIA (test code = ANTONIA) Civil Structural Engineer ID - [id number] ID - [id number] ID - [id number] Lab Interpretation Abnormal (test code = 96073-9) [facility] [id number] 13:32:19 Test Item Value Reference Range Interpretation Comments PLATELET COUNT 103 K/CU MM 150-450 L Discordant re sults (BEAKER) (test code compared to previous, = 756) clinical correl ation required.Dasha lopez is in CV [place] Civil Structural Engineer ID - [id number] ID - [id number] ID - [id number] 13:17:41 Test Item Value Reference Range Interpretation Comments Fibrinogen (test code = 3255-7) 202 mg/dl 225-434 L Lab Interpretation (test code = Abnormal 67748-4) [id number] 13:17:41 Test Item Value Reference Range Interpretation Comments FIBRINOGEN LEVEL (BEAKER) (test 202 mg/dl 225-434 L code = 658) [id number] 13:17:41 Test Item Value Reference Range Interpretation Comments PARTIAL THROMBOPLASTIN TIME 36.2 seconds 22.5-36.0 H (BEAKER) (test code = 760) PROTHROMBIN TIME/[id number] 13:16:58 Test Item Value Reference Range Interpretation Comments PROTIME (BEAKER) 17.7 seconds 11.9-14.2 H (test code = 759) INR (BEAKER) (test 1.49 See_Comment [Automat ed message] code = 370) The system [employer] generated this result transmitted ref erence range: <=5.90. The reference range was not used to int erpret this result as normal/abnormal . RECOMMENDED COUMADIN/WARFARIN INR THERAPY RANGESSTANDARD DOSE: 2.0 - 3.0 Includes: PROPHYLAXIS for venous thrombosis, systemic embolization; TREATMENT for venous thrombosis and/or pulmonary embolus.HIGH RISK: Target INR is 2.5-3.5 for patients with mechanical heart valves.Calcium, [id number] 13:05:48 Test Item Value Reference Range Interpretation Comments Calcium, Ion (test code = 1993-) 1.29 mmol/L 1.12-1.27 H pH, Blood (test code = 06911-4) 7.39 Lab Interpretation (test code = Abnormal 54180-8) [facility]&H[facility]Stat [id number] 13:05:48 Test Item Value Reference Range Interpretation Comments Hemoglobin (test code = 11.5 See_Comment L [Au tomated message] 718-7) The system [employer] generated this result transmitted ref erence range: 12.0 - 1 5.0 GM/DL. The refe rence range was not u sed to interpret this result as normal/abnor mal. Hematocrit (test code = 34.0 % 36.0-45.0 L 4544-3) Lab Interpretation (test Abnormal code = 64445-9) [facility] HospitalCALCIUM, [id number] 13:05:48 Test Item Value Reference Range Interpretation Comments CALCIUM IONIZED (BEAKER) (test 1.29 mmol/L 1.12-1.27 H code = 698) PH, BLOOD (BEAKER) (test code = 7.39 1810) BLOOD GAS, [id number] 13:05:48 Test Item Value Reference Range Interpretation Comments PH ARTERIAL (BEAKER) (test code = 7.40 7.35-7.45 383) PCO2 ARTERIAL (BEAKER) (test code 42 mm Hg 35-45 = 384) PO2 ARTERIAL (BEAKER) (test code = 182 mm Hg 80-90 H 385) O2 SATURATION ARTERIAL (BEAKER) 99.2 % 96.0-97.0 H (test code = 386) HCO3 ARTERIAL (BEAKER) (test code 25 mmol/L 21-29 = 388) BASE EXCESS ARTERIAL (BEAKER) 0.0 mmol/L -2.0-3.0 (test code = 387) PATIENT TEMPERATURE (BEAKER) (test 36.5 code = 1818) FIO2 (BEAKER) (test code = 1819) 100.0 HGB/HCT (H&H) - STAT [id number] 13:05:48 Test Item Value Reference Range Interpretation Comments HEMOGLOBIN (BEAKER) (test code = 11.5 GM/DL 12.0-15.0 L 410) HEMATOCRIT (BEAKER) (test code = 34.0 % 36.0-45.0 L 411) Glucose-Stat [id number] 13:04:35 Test Item Value Reference Range Interpretation Comments Glucose (test code = 2345-7) 117 mg/dL 70-110 H Lab Interpretation (test code = Abnormal 75219-3) [facility] [id number] 13:04:35 Test Item Value Reference Range Interpretation Comments Sodium (test code = 2951-2) 138 meq/L 136-145 Lab Interpretation (test code = Normal 77514-0) [facility]assium[facility] [id number] 13:04:35 Test Item Value Reference Range Interpretation Comments Potassium (test code = 2823-3) 3.8 meq/L 3.6-5.5 Lab Interpretation (test code = Normal 66447-0) [facility]UCOSE-STAT [id number] 13:04:35 Test Item Value Reference Range Interpretation Comments GLUCOSE RANDOM (BEAKER) (test code 117 mg/dL 70-110 H = 652) SODIUM NA-STAT [id number] 13:04:35 Test Item Value Reference Range Interpretation Comments SODIUM (BEAKER) (test code = 381) 138 meq/L 136-145 POTASSIUM-STAT [id number] 13:04:35 Test Item Value Reference Range Interpretation Comments POTASSIUM (BEAKER) (test code = 3.8 meq/L 3.6-5.5 379) CALCIUM, [id number] 11:58:46 Test Item Value Reference Range Interpretation Comments CALCIUM IONIZED (BEAKER) (test 0.78 mmol/L 1.12-1.27 LL code = 698) PH, BLOOD (BEAKER) (test code = 7.35 1810) SODIUM NA-STAT [id number] 11:51:08 Test Item Value Reference Range Interpretation Comments SODIUM (BEAKER) (test code = 381) 134 meq/L 136-145 L HGB/HCT (H&H) - STAT [id number] 11:51:02 Test Item Value Reference Range Interpretation Comments HEMOGLOBIN (BEAKER) (test code = 9.2 GM/DL 12.0-15.0 L 410) HEMATOCRIT (BEAKER) (test code = 27.0 % 36.0-45.0 L 411) BLOOD GAS, [id number] 11:50:55 Test Item Value Reference Range Interpretation Comments PH ARTERIAL (BEAKER) (test code = 7.37 7.35-7.45 383) PCO2 ARTERIAL (BEAKER) (test code 39 mm Hg 35-45 = 384) PO2 ARTERIAL (BEAKER) (test code 130 mm Hg 80-90 H = 385) O2 SATURATION ARTERIAL (BEAKER) 98.6 % 96.0-97.0 H (test code = 386) HCO3 ARTERIAL (BEAKER) (test code 23 mmol/L 21-29 = 388) BASE EXCESS ARTERIAL (BEAKER) -2.8 mmol/L -2.0-3.0 L (test code = 387) PATIENT TEMPERATURE (BEAKER) 35.6 (test code = 1818) FIO2 (BEAKER) (test code = 1819) 100.0 GLUCOSE-STAT [id number] 11:50:09 Test Item Value Reference Range Interpretation Comments GLUCOSE RANDOM (BEAKER) (test code 137 mg/dL 70-110 H = 652) POTASSIUM-STAT [id number] 11:50:09 Test Item Value Reference Range Interpretation Comments POTASSIUM (BEAKER) (test code = 3.8 meq/L 3.6-5.5 379) Hemoglobin and [id number] 11:06:21 Test Item Value Reference Range Interpretation Comments Hemoglobin (test code = 12.0 See_Comment [Au tomated message] 338-7) The system [employer] generated this result transmitted ref erence range: 12.0 - 1 5.0 GM/DL. The refe rence range was not u sed to interpret this result as normal/abnor mal. Hematocrit (test code = 35.0 % 36.0-45.0 L 4544-3) Lab Interpretation (test Abnormal code = 43638-5) [facility] HospitalHEMOGLOBIN AND [id number] 11:06:21 Test Item Value Reference Range Interpretation Comments HEMOGLOBIN (BEAKER) (test code = 12.0 GM/DL 12.0-15.0 410) HEMATOCRIT (BEAKER) (test code = 35.0 % 36.0-45.0 L 411) CALCIUM, [id number] 10:54:34 Test Item Value Reference Range Interpretation Comments CALCIUM IONIZED (BEAKER) (test 1.01 mmol/L 1.12-1.27 L code = 698) PH, BLOOD (BEAKER) (test code = 7.38 1810) BLOOD GAS, [id number] 10:53:20 Test Item Value Reference Range Interpretation Comments PH ARTERIAL (BEAKER) (test code = 7.41 7.35-7.45 383) PCO2 ARTERIAL (BEAKER) (test code 39 mm Hg 35-45 = 384) PO2 ARTERIAL (BEAKER) (test code 79 mm Hg 80-90 L = 385) O2 SATURATION ARTERIAL (BEAKER) 96.7 % 96.0-97.0 (test code = 386) HCO3 ARTERIAL (BEAKER) (test code 24 mmol/L 21-29 = 388) BASE EXCESS ARTERIAL (BEAKER) -0.8 mmol/L -2.0-3.0 (test code = 387) PATIENT TEMPERATURE (BEAKER) 35.0 (test code = 1818) FIO2 (BEAKER) (test code = 1819) 93.0 POTASSIUM-STAT [id number] 10:53:09 Test Item Value Reference Range Interpretation Comments POTASSIUM (BEAKER) (test code = 3.8 meq/L 3.6-5.5 379) HGB/HCT (H&H) - STAT [id number] 10:53:09 Test Item Value Reference Range Interpretation Comments HEMOGLOBIN (BEAKER) (test code = 12.1 GM/DL 12.0-15.0 410) HEMATOCRIT (BEAKER) (test code = 36.0 % 36.0-45.0 411) GLUCOSE-STAT [id number] 10:53:08 Test Item Value Reference Range Interpretation Comments GLUCOSE RANDOM (BEAKER) (test code 114 mg/dL 70-110 H = 652) SODIUM NA-STAT [id number] 10:53:08 Test Item Value Reference Range Interpretation Comments SODIUM (BEAKER) (test code = 381) 137 meq/L 136-145 CALCIUM, [id number] 10:10:35 Test Item Value Reference Range Interpretation Comments CALCIUM IONIZED (BEAKER) (test 0.98 mmol/L 1.12-1.27 L code = 698) PH, BLOOD (BEAKER) (test code = 7.44 1810) BLOOD GAS, [id number] 10:10:25 Test Item Value Reference Range Interpretation Comments PH ARTERIAL (BEAKER) (test code = 7.45 7.35-7.45 383) PCO2 ARTERIAL (BEAKER) (test code 35 mm Hg 35-45 = 384) PO2 ARTERIAL (BEAKER) (test code = 243 mm Hg 80-90 H 385) O2 SATURATION ARTERIAL (BEAKER) 99.6 % 96.0-97.0 H (test code = 386) HCO3 ARTERIAL (BEAKER) (test code 24 mmol/L 21-29 = 388) BASE EXCESS ARTERIAL (BEAKER) 0.0 mmol/L -2.0-3.0 (test code = 387) PATIENT TEMPERATURE (BEAKER) (test 36.3 code = 1818) FIO2 (BEAKER) (test code = 1819) 80.0 BASIC METABOLIC [id number] 06:39:31 Test Item Value Reference Range Interpretation Comments SODIUM (BEAKER) 135 meq/L 136-145 L (test code = 381) POTASSIUM 4.6 meq/L 3.5-5.1 (BEAKER) (test code = 379) CHLORIDE (BEAKER) 102 meq/L 98-107 (test code = 382) CO2 (BEAKER) 26 meq/L 22-29 (test code = 355) BLOOD UREA 8 mg/dL 7-21 NITROGEN (BEAKER) (test code = 354) CREATININE 0.77 mg/dL 0.57-1.25 (BEAKER) (test code = 358) GLUCOSE RANDOM 85 mg/dL 70-105 (DAVONAKER) (test code = 652) CALCIUM (DAVONAKER) 8.6 mg/dL 8.4-10.2 (test code = 697) EGFR (DAVONAKER) 96 Interpretatio n of eGFR (test code = mL/min/1.73 values Stage De scription 1092) sq m Result G1 Niharika l or high >=90 G2 Mildly decreased 60-89 G3a Mildl y to moderately 45-5 9 G3b Moderately to s everely 30-44 G4 Severl y decreased 15-29 G5 Kidney failure <15Reported eGF R is based on the CKD-EPI 2020 equation that d oes not use a race coefficientEsti mated GFR is not as accur ate as Creatinine Michaelle evin in predicting glom erular filtration rate . Estimated GFR is not appl icable for dialysis patien ts Civil Structural Engineer ID - KATIE [id number] 06:39:31 Test Item Value Reference Range Interpretation Comments MAGNESIUM (DAVONAKER) (test code = 2.1 mg/dL 1.6-2.6 627) Civil Structural Engineer ID - KATIE [id number] 06:39:31 Test Item Value Reference Range Interpretation Comments PHOSPHORUS (BEAKER) (test code = 3.3 mg/dL 2.3-4.7 604) Civil Structural Engineer ID - KATIE MPOCT-GLUCOSE [id number] 06:07:24 Test Item Value Reference Range Interpretation Comments POC-GLUCOSE METER 79 mg/dL 70-110 : TESTED A T [facility] [address] ([facility]) (test code = [place], 1538) [address]: Civil Structural Engineer/Techni rosa ID = [id number] for KERRI LIM SARS-CoV2/RT-PCR (Asymptomatic ONLY)2022-02-19 03:04:11 Test Item Value Reference Interpretation Comments Range SARS-COV2/RT-PCR Negative Negative The SARS-Co V-2 (test code = target nucleic 32132-2) acids are not detected in thi s specimen. Negat martin results do not preclude SARS-C oV-2 infection and should not be u sed as the sole bas is for patient management decisions. Nega tive results must be combined with clinical observations, patient history , and epidemiolog ical information. A false negative result may occu r if a specimen is improperly collected, transported or handled. This S ARS CoV-2 test is a rapid, real-sebastian e RT-PCR test intended for th e qualitative detection of nucleic acid fr om SARS-CoV-2 in a nasopharyngeal swab specimen collec lucila from individual s suspected of COVID-19 by the ir healthcare provider. ANTONIA (test code = This test has been ANTONIA) authorized by FDA under an EUA for use by authorized laboratories. This test is only authorized for the duration of the declaration that circumstances exist justifying the authorization of emergency use of in vitro diagnostic tests for detection and/or diagnosis of COVID-19 under Section 564(b)(1) of the Federal Food, Drug and Cosmetic Act, 21 U.S.C. 360bbb-3(b)(1), unless the authorization is terminated or revoked sooner. Fact Sheet for Healthcare Providers: https://www.[employer]/Documents/Xp ert%20Xpress%20SAR S%20CoV-2/Fact%20S heets/302-3802%20S ARS-COV-2%20HEALTH CARE%20PROVIDERS%2 0FACT%20SHEET.pdf Fact Sheet for Healthcare Patients: https://www.[employer]/Documents/Xp ert%20Xpress%20SAR S%20CoV-2/Fact%20S heets/302-3801%20S ARS-COV-2%20PATIEN T%20FACT%20SHEET.p df Lab Interpretation Normal (test code = 50680-9) [facility])2022-02-19 03:04:11 Test Item Value Reference Range Interpretation Comments SARS-COV2/RT-PCR Negative Negative The SARS-Co V-2 target (test code = nucleic acids a re not 5208617) detected in thi s specimen. Negative result s do not preclude SARS-C oV-2 infection and s hould not be used as the azael e basis for patient managem ent decisions. Nega tive results must be combine d with clinical observ ations, patient history , and epidemiological information. A false negativ e result may occur if a spec imen is improperly elis ected, transported or handled. This SARS CoV-2 test is a rapid, real-time RT-PC R test intended for th e qualitative detection of nu cleic acid from SARS-CoV-2 in a nasopharyngeal swab specimen collected from individuals suspected of CO VID-19 by their healthcar e provider. This test has been authorized by FDA under an EUA for use by authorized laboratories. This test is only authorized for the duration of the declaration that circumstances exist justifying the authorization of emergency use of in vitro diagnostic tests for detection and/or diagnosis of COVID-19 under Section 564(b)(1) of the Federal Food, Drug and Cosmetic Act, 21 U.S.C. 360bbb-3(b)(1), unless the authorization is terminated or revoked sooner. Fact Sheet for Healthcare Providers: https://www.[employer]/Documents/Xpert%20Xpress%20SARS%20CoV-2/Fact%20Sheets/302-3802%62RHKT-CZO-1%20 HEALTHCARE%20PROVIDERS%20FACT%20SHEET.pdf Fact Sheet for Healthcare Patients: https://www.[employer]/Documents/Xpert%20Xp ress%20SARS%20CoV-2/Fact%20Sheets/3023801%92JOBE-GYB-7%20PATIENT%20FACT%20SHEET .pdf(CELLAVISION MANUAL DIFF)2022-02-18 07:46:20 Test Item Value Reference Range Interpretation Comments NEUTROPHILS - REL 31 % (CELLAVISION)(BEAKER) (test code = 2816) LYMPHOCYTES - REL 41 % (CELLAVISION)(BEAKER) (test code = 2817) MONOCYTES - REL 3 % (CELLAVISION)(BEAKER) (test code = 2818) EOSINOPHILS - REL 7 % (CELLAVISION)(BEAKER) (test code = 2819) BANDS - REL (CELLAVISION)(BEAKER) 14 % 0-10 H (test code = 2826) ATYPICAL LYMPHOCYTES - REL 4 % 0-0 H (CELLAVISION)(BEAKER) (test code = 2829) NEUTROPHILS - ABS 2.36 K/ul 1.56-6.13 (CELLAVISION)(BEAKER) (test code = 2830) LYMPHOCYTES - ABS 3.12 K/ul 1.18-3.74 (CELLAVISION)(BEAKER) (test code = 2831) MONOCYTES - ABS 0.23 K/uL 0.24-0.36 L (CELLAVISION)(BEAKER) (test code = 2832) EOSINOPHILS - ABS 0.53 K/uL 0.04-0.36 H (CELLAVISION)(BEAKER) (test code = 2834) BANDS - ABS (CELLAVISION)(BEAKER) 1.06 K/uL 0.00-0.80 H (test code = 2840) ATYPICAL LYMPHOCYTES - ABS 0.30 K/uL 0.00-0.00 H (CELLAVISION)(BEAKER) (test code = 2858) TOTAL COUNTED (BEAKER) (test code = 100 1351) PLT MORPHOLOGY (BEAKER) (test code Normal = 486) SMUDGE CELLS (BEAKER) (test code = Present 1371) POLYCHROMATOPHILLIC RBCS(BEAKER) 1+ few (test code = 478) ANISOCYTOSIS (BEAKER) (test code = 1+ few 961) MICROCYTES (BEAKER) (test code = 1+ few 965) POIKILOCYTES (BEAKER) (test code = 1+ few 966) SCHISTOCYTES (BEAKER) (test code = 1+ few 765) OVALOCYTES (BEAKER) (test code = 1+ few 477) PLATELET CONCENTRATION Adequate (CELLAVISION)(BEAKER) (test code = 3438) Civil Structural Engineer ID - Gus [id number]-onUser comments: Slide comments:CBC W/PLT COUNT & AUTO [id number] 07:46:09 Test Item Value Reference Range Interpretation Comments WHITE BLOOD CELL COUNT (BEAKER) 7.6 K/ L 3.5-10.5 (test code = 775) RED BLOOD CELL COUNT (BEAKER) 4.39 M/ L 3.93-5.22 (test code = 761) HEMOGLOBIN (BEAKER) (test code = 13.1 GM/DL 11.2-15.7 410) HEMATOCRIT (BEAKER) (test code = 38.5 % 34.1-44.9 411) MEAN CORPUSCULAR VOLUME (BEAKER) 88 fL 79-95 (test code = 753) MEAN CORPUSCULAR HEMOGLOBIN 29.8 pg 25.6-32.2 (BEAKER) (test code = 751) MEAN CORPUSCULAR HEMOGLOBIN CONC 34.0 GM/DL 32.2-35.5 (BEAKER) (test code = 752) RED CELL DISTRIBUTION WIDTH 14.1 % 11.7-14.4 (BEAKER) (test code = 412) PLATELET COUNT (BEAKER) (test 263 K/CU MM 150-450 code = 756) MEAN PLATELET VOLUME (BEAKER) 8.9 fL 9.4-12.3 L (test code = 754) NUCLEATED RED BLOOD CELLS 0 /100 WBC 0-0 (BEAKER) (test code = 413) [id number] 05:06:35 Test Item Value Reference Range Interpretation Comments PHOSPHORUS (BEAKER) (test code = 3.1 mg/dL 2.3-4.7 604) Civil Structural Engineer ID - MARILIN WBASIC METABOLIC [id number] 05:06:34 Test Item Value Reference Range Interpretation Comments SODIUM (BEAKER) 134 meq/L 136-145 L (test code = 381) POTASSIUM 4.7 meq/L 3.5-5.1 (BEAKER) (test code = 379) CHLORIDE (BEAKER) 102 meq/L 98-107 (test code = 382) CO2 (BEAKER) 28 meq/L 22-29 (test code = 355) BLOOD UREA 8 mg/dL 7-21 NITROGEN (BEAKER) (test code = 354) CREATININE 0.85 mg/dL 0.57-1.25 (BEAKER) (test code = 358) GLUCOSE RANDOM 82 mg/dL 70-105 (BEAKER) (test code = 652) CALCIUM (BEAKER) 8.3 mg/dL 8.4-10.2 L (test code = 697) EGFR (BEAKER) 85 Interpretatio n of eGFR (test code = mL/min/1.73 values Stage De scription 1092) sq m Result G1 Niharika l or high >=90 G2 Mildly decreased 60-89 G3a Mildl y to moderately 45-5 9 G3b Moderately to s everely 30-44 G4 Severl y decreased 15-29 G5 Kidney failure <15Reported eGF R is based on the CKD-EPI 2020 equation that d oes not use a race coefficientEsti mated GFR is not as accur ate as Creatinine Michaelle cleary in predicting glom erular filtration rate . Estimated GFR is not appl icable for dialysis patien ts Civil Structural Engineer ID - MARILIN [id number] 05:06:34 Test Item Value Reference Range Interpretation Comments MAGNESIUM (BEAKER) (test code = 2.1 mg/dL 1.6-2.6 627) Civil Structural Engineer ID - MARILIN W2D Echo W/Doppler(CW/PW/Color)2022-02-17 16:05:45Ejection FractionSLEH ECHO HEARTLAB MKCKESSON [facility] (CELLAVISION MANUAL DIFF)2022-02-17 07:14:35 Test Item Value Reference Range Interpretation Comments NEUTROPHILS - REL 29 % (CELLAVISION)(BEAKER) (test code = 2816) LYMPHOCYTES - REL 43 % (CELLAVISION)(BEAKER) (test code = 2817) MONOCYTES - REL 1 % (CELLAVISION)(BEAKER) (test code = 2818) EOSINOPHILS - REL 10 % (CELLAVISION)(BEAKER) (test code = 2819) BANDS - REL (CELLAVISION)(BEAKER) 12 % 0-10 H (test code = 2826) ATYPICAL LYMPHOCYTES - REL 5 % 0-0 H (CELLAVISION)(BEAKER) (test code = 2829) NEUTROPHILS - ABS 2.09 K/ul 1.56-6.13 (CELLAVISION)(BEAKER) (test code = 2830) LYMPHOCYTES - ABS 3.10 K/ul 1.18-3.74 (CELLAVISION)(BEAKER) (test code = 2831) MONOCYTES - ABS 0.07 K/uL 0.24-0.36 L (CELLAVISION)(BEAKER) (test code = 2832) EOSINOPHILS - ABS 0.72 K/uL 0.04-0.36 H (CELLAVISION)(BEAKER) (test code = 2834) BANDS - ABS (CELLAVISION)(BEAKER) 0.86 K/uL 0.00-0.80 H (test code = 2840) ATYPICAL LYMPHOCYTES - ABS 0.36 K/uL 0.00-0.00 H (CELLAVISION)(BEAKER) (test code = 2858) TOTAL COUNTED (BEAKER) (test code = 100 1351) WBC MORPHOLOGY (BEAKER) (test code Normal = 487) PLT MORPHOLOGY (BEAKER) (test code Normal = 486) ANISOCYTOSIS (BEAKER) (test code = 1+ few 961) MICROCYTES (BEAKER) (test code = 1+ few 965) ARTIFACT (CELLAVISION)(BEAKER) Present (test code = 3432) PLATELET CONCENTRATION Adequate (CELLAVISION)(BEAKER) (test code = 3438) Civil Structural Engineer ID - Keyanna Graham comments: Slide comments:CBC W/PLT COUNT & AUTO [id number] 07:14:34 Test Item Value Reference Range Interpretation Comments WHITE BLOOD CELL COUNT (BEAKER) 7.2 K/ L 3.5-10.5 (test code = 775) RED BLOOD CELL COUNT (BEAKER) 4.39 M/ L 3.93-5.22 (test code = 761) HEMOGLOBIN (BEAKER) (test code = 13.0 GM/DL 11.2-15.7 410) HEMATOCRIT (BEAKER) (test code = 39.8 % 34.1-44.9 411) MEAN CORPUSCULAR VOLUME (BEAKER) 91 fL 79-95 (test code = 753) MEAN CORPUSCULAR HEMOGLOBIN 29.6 pg 25.6-32.2 (BEAKER) (test code = 751) MEAN CORPUSCULAR HEMOGLOBIN CONC 32.7 GM/DL 32.2-35.5 (BEAKER) (test code = 752) RED CELL DISTRIBUTION WIDTH 14.3 % 11.7-14.4 (BEAKER) (test code = 412) PLATELET COUNT (BEAKER) (test 267 K/CU MM 150-450 code = 756) MEAN PLATELET VOLUME (BEAKER) 8.9 fL 9.4-12.3 L (test code = 754) NUCLEATED RED BLOOD CELLS 0 /100 WBC 0-0 (BEAKER) (test code = 413) [id number] 05:58:15 Test Item Value Reference Range Interpretation Comments PHOSPHORUS (BEAKER) (test code = 3.1 mg/dL 2.3-4.7 604) Civil Structural Engineer ID - SARAH LBASIC METABOLIC [id number] 05:58:14 Test Item Value Reference Range Interpretation Comments SODIUM (BEAKER) 138 meq/L 136-145 (test code = 381) POTASSIUM 5.3 meq/L 3.5-5.1 H (BEAKER) (test code = 379) CHLORIDE (BEAKER) 104 meq/L 98-107 (test code = 382) CO2 (BEAKER) 30 meq/L 22-29 H (test code = 355) BLOOD UREA 7 mg/dL 7-21 NITROGEN (BEAKER) (test code = 354) CREATININE 0.85 mg/dL 0.57-1.25 (BEAKER) (test code = 358) GLUCOSE RANDOM 85 mg/dL 70-105 (BEAKER) (test code = 652) CALCIUM (BEAKER) 8.6 mg/dL 8.4-10.2 (test code = 697) EGFR (BEAKER) 85 Interpretatio n of eGFR (test code = mL/min/1.73 values Stage De scription 1092) sq m Result G1 Niharika l or high >=90 G2 Mildly decreased 60-89 G3a Mildl y to moderately 45-5 9 G3b Moderately to s everely 30-44 G4 Severl y decreased 15-29 G5 Kidne y failure <15Reported eGF R is based on the CKD-EPI 2020 equation that d oes not use a race coefficientEsti mated GFR is not as accur ate as Creatinine Michaelle evin in predicting glom erular filtration rate . Estimated GFR is not appl icable for dialysis patien ts Civil Structural Engineer ID - PIPIA [id number] 05:58:14 Test Item Value Reference Range Interpretation Comments MAGNESIUM (BEAKER) (test code = 2.2 mg/dL 1.6-2.6 627) Civil Structural Engineer ID - PRATIBHAPIA L(CELLAVISION MANUAL DIFF)2022-02-16 10:13:46 Test Item Value Reference Range Interpretation Comments NEUTROPHILS - REL 37 % (CELLAVISION)(BEAKER) (test code = 2816) LYMPHOCYTES - REL 30 % (CELLAVISION)(BEAKER) (test code = 2817) MONOCYTES - REL 5 % (CELLAVISION)(BEAKER) (test code = 2818) EOSINOPHILS - REL 11 % (CELLAVISION)(BEAKER) (test code = 2819) BASOPHILS - REL 1 % (CELLAVISION)(BEAKER) (test code = 2820) METAMYELOCYTES - REL 1 % 0-0 H (CELLAVISION)(BEAKER) (test code = 2821) BANDS - REL (CELLAVISION)(BEAKER) 12 % 0-10 H (test code = 2826) ATYPICAL LYMPHOCYTES - REL 3 % 0-0 H (CELLAVISION)(BEAKER) (test code = 2829) NEUTROPHILS - ABS 2.63 K/ul 1.56-6.13 (CELLAVISION)(BEAKER) (test code = 2830) LYMPHOCYTES - ABS 2.13 K/ul 1.18-3.74 (CELLAVISION)(BEAKER) (test code = 2831) MONOCYTES - ABS 0.36 K/uL 0.24-0.36 (CELLAVISION)(BEAKER) (test code = 2832) EOSINOPHILS - ABS 0.78 K/uL 0.04-0.36 H (CELLAVISION)(BEAKER) (test code = 2834) BASOPHILS - ABS 0.07 K/uL 0.01-0.08 (CELLAVISION)(BEAKER) (test code = 2835) METAMYELOCYTES - ABS 0.07 K/uL 0.00-0.00 H (CELLAVISION)(BEAKER) (test code = 2836) BANDS - ABS (CELLAVISION)(BEAKER) 0.85 K/uL 0.00-0.80 H (test code = 2840) ATYPICAL LYMPHOCYTES - ABS 0.21 K/uL 0.00-0.00 H (CELLAVISION)(BEAKER) (test code = 3048) TOTAL COUNTED (BEAKER) (test code = 100 1351) WBC MORPHOLOGY (BEAKER) (test code Normal = 487) PLT MORPHOLOGY (BEAKER) (test code Normal = 486) ANISOCYTOSIS (BEAKER) (test code = 1+ few 961) POIKILOCYTES (BEAKER) (test code = 1+ few 966) ARTIFACT (CELLAVISION)(BEAKER) Present (test code = 0652) PLATELET CONCENTRATION Adequate (CELLAVISION)(BEAKER) (test code = 8808) Civil Structural Engineer ID - Viridiana OverholtUser comments: Slide comments:CBC W/PLT COUNT & AUTO [id number] 10:13:45 Test Item Value Reference Range Interpretation Comments WHITE BLOOD CELL COUNT (BEAKER) 7.1 K/ L 3.5-10.5 (test code = 775) RED BLOOD CELL COUNT (BEAKER) 4.30 M/ L 3.93-5.22 (test code = 761) HEMOGLOBIN (BEAKER) (test code = 12.9 GM/DL 11.2-15.7 410) HEMATOCRIT (BEAKER) (test code = 38.7 % 34.1-44.9 411) MEAN CORPUSCULAR VOLUME (BEAKER) 90 fL 79-95 (test code = 753) MEAN CORPUSCULAR HEMOGLOBIN 30.0 pg 25.6-32.2 (BEAKER) (test code = 751) MEAN CORPUSCULAR HEMOGLOBIN CONC 33.3 GM/DL 32.2-35.5 (BEAKER) (test code = 752) RED CELL DISTRIBUTION WIDTH 14.1 % 11.7-14.4 (BEAKER) (test code = 412) PLATELET COUNT (BEAKER) (test 283 K/CU MM 150-450 code = 756) MEAN PLATELET VOLUME (BEAKER) 9.1 fL 9.4-12.3 L (test code = 754) NUCLEATED RED BLOOD CELLS 0 /100 WBC 0-0 (BEAKER) (test code = 413) RAD, CHEST, 1 VIEW, NON [id number] 07:19:00Reason for exam:->Chest pain; aortic knob pseudoaneurysmShould this be performed at the bedside?->Yes [facility]ENTER[facility]N WATTS : 1975 Sex: FFINAL REPORT INDICATION: Chest pain; aortic knob pseudoaneurysm COMPARISON: None TECHNIQUE: Single frontal view of the chest. FINDINGS: Lungs and pleura: Hazy apical and midlung interstitial thickening No effusion.Heart and mediastinum: Normal heart size. Unremarkable mediastinal contours.Osseous structures: No acute abnormality.Other: None. IMPRESSION: Hazy apical and midlung interstitial thickening. Findings may represent background scarring, or, in the appropriate clinical setting, viral infection. Signed: Della Harden Verified Date/Time: 02/16/2022 07:19:54 Reading Location: [address] Reading Room [id number] 07:08:24 Test Item Value Reference Range Interpretation Comments PHOSPHORUS (BEAKER) (test code = 3.1 mg/dL 2.3-4.7 604) Civil Structural Engineer ID - PIAYA LCOMPREHENSIVE METABOLIC [id number] 07:08:23 Test Item Value Reference Range Interpretation Comments TOTAL PROTEIN 6.3 gm/dL 6.0-8.3 (BEAKER) (test code = 770) ALBUMIN (BEAKER) 3.4 g/dL 3.5-5.0 L (test code = 1145) ALKALINE 68 U/L 40-150 PHOSPHATASE (BEAKER) (test code = 346) BILIRUBIN TOTAL 0.4 mg/dL 0.2-1.2 (BEAKER) (test code = 377) SODIUM (BEAKER) 135 meq/L 136-145 L (test code = 381) POTASSIUM (BEAKER) 4.4 meq/L 3.5-5.1 (test code = 379) CHLORIDE (BEAKER) 103 meq/L 98-107 (test code = 382) CO2 (BEAKER) (test 26 meq/L 22-29 code = 355) BLOOD UREA 10 mg/dL 7-21 NITROGEN (BEAKER) (test code = 354) CREATININE 0.83 mg/dL 0.57-1.25 (BEAKER) (test code = 358) GLUCOSE RANDOM 89 mg/dL 70-105 (BEAKER) (test code = 652) CALCIUM (BEAKER) 8.6 mg/dL 8.4-10.2 (test code = 697) AST (SGOT) 33 U/L 5-34 (NASH) (test code = 353) ALT (SGPT) 21 U/L 6-55 (MIRANDA) (test code = 347) EGFR ([facility]) 87 Interpretatio n of eGFR (test code = 1092) mL/min/1.[address] age Description sq m Result G1 Norm al or high >=90 G2 Mildly decreased 60-89 G3a Mildl y to moderately 45-5 9 G3b Moderately to s everely 30-44 G4 Severl y decreased 15-29 G5 Kidne y failure <15Reported eGF R is based on the CKD-EPI 2020 equation that d oes not use a race coefficientEsti mated GFR is not as accur ate as Creatinine Michaelle evin in predicting glom erular filtration rate . Estimated GFR is not appl icable for dialysis patien ts Civil Structural Engineer ID Nia SMITH [id number] 07:08:23 Test Item Value Reference Range Interpretation Comments MAGNESIUM (NASH) (test code = 2.2 mg/dL 1.6-2.6 627) Civil Structural Engineer ID Nia SMITH LPOCT-GLUCOSE [id number] 06:46:24 Test Item Value Reference Range Interpretation Comments POC-GLUCOSE METER 85 mg/dL 70-110 : TESTED A T [facility] 67[address] ([facility]) (test code = [facility], 1538) [address]: Civil Structural Engineer/Techni rosa ID = [id number] for Simon Dawkins HCG, QUANTITATIVE, [id number] 06:20:00 Test Item Value Reference Range Interpretation Comments GONADOTROPIN, CHORIONIC (HCG) QUANT < mIU/mL 0-10 (NASH) (test code = 649) Non- Females: <10 mIU/mL Females: Gestation Age Reference Range(mIU/mL) 0.2-1 Week 5-50 1-2 Weeks 50-500 2-3 Weeks 100-5,000 3-4 Weeks 500-10,000 4-5 Weeks 1,000-50,000 5-6 Weeks 10,000-100,000 6-8 Weeks 15,000- 200,000 2-3 Months 10,000-100,000 Civil Structural Engineer ID Nia SMITH LHIGH SENSITIVITY TROPONIN [id number] 06:19:43 Test Item Value Reference Range Interpretation Comments HIGH SENSITIVITY 5 pg/ml See_Comment [Automated message] TROPONIN I (test code = The system which [id number]) generated this result transmitted ref erence range: <=17. Th e reference range was not used to interpr et this result as normal/abnormal . Civil Structural Engineer ID - PIAYA LThe TOUR CONSULTANT STAT High Sensitivity Troponin-I results should be used in conjunction with other diagnostic information such as ECG, clinical observations and information, and patient symptoms to aid in the diagnosis of FL.[id number] 06:13:24 Test Item Value Reference Range Interpretation Comments PARTIAL THROMBOPLASTIN TIME 30.3 seconds 22.5-36.0 (BEAKER) (test code = 760) [id number] 06:13:18 Test Item Value Reference Range Interpretation Comments FIBRINOGEN LEVEL (BEAKER) (test 331 mg/dl 225-434 code = 658) PROTHROMBIN [id number] 06:12:40 Test Item Value Reference Range Interpretation Comments PROTIME (BEAKER) 14.2 seconds 11.9-14.2 (test code = 759) INR (BEAKER) (test 1.16 See_Comment [Automat ed message] code = 370) The system whic h generated this result transmitted ref erence range: <=5.90. The reference range was not used to int erpret this result as normal/abnormal . RECOMMENDED COUMADIN/WARFARIN INR THERAPY RANGESSTANDARD DOSE: 2.0 - 3.0 Includes: PROPHYLAXIS for venous thrombosis, systemic embolization; TREATMENT for venous thrombosis and/or pulmonary embolus.HIGH RISK: Target INR is 2.5-3.5 for patients with mechanical heart valves.
--- NOTE | 2022-04-19 16:44 | EDPHYS ---
Physician Documentation [facility] Name: Jen Joyce Age: 46 yrs Sex: Female : 1975 Arrival Date: 04/19/2022 Time: 16:23 Bed 9 Private MD: ED Physician López Drummond HPI: 04/19 16:30 This 46 yrs old Female presents to ER via Ambulatory with complaints of Suture Removal. jmm 16:30 The patient has sutures on the chest. Is a 46-year-old female with history of asthma jmm the presents emerged department wanting to have her sutures removed. Patient had a thoracic aorta repair performed 8 weeks ago and has not been able to follow-up with surgery for suture removal. Denies any fever or redness around the sutures. States some of them did fall off.. Historical: - Allergies: 16:36 Amoxicillin; hb - Home Meds: 16:36 albuterol sulfate 1.25 mg/3 mL Inhl nebu [Active]; hb - PMHx: 16:36 Asthma; hb - Immunization history:: Adult Immunizations up to date. - Social history:: Smoking status: Patient denies any tobacco usage or history of. ROS: 16:30 Constitutional: Negative for fever, chills, and weight loss, Cardiovascular: Negative jm for chest pain, palpitations, and edema, Respiratory: Negative for shortness of breath, cough, wheezing, and pleuritic chest pain. 16:30 All other systems are negative. Exam: 16:30 Constitutional: This is a well developed, well nourished patient who is awake, alert, jmm and in no acute distress. Head/Face: atraumatic. Eyes: EOMI, no conjunctival erythema appreciated ENT: Moist Mucus Membranes Neck: Trachea midline, Supple 16:30 Cardiovascular: Regular rate and rhythm. No edema appreciated Respiratory: Normal respirations, no respiratory distress appreciated Abdomen/GI: Non distended Back: Normal ROM Skin: General appearance color normal MS/ Extremity: Moves all extremities, no obvious deformities appreciated, no edema noted to the lower extremities Neuro: Awake and alert Psych: Behavior is normal, Mood is normal, Patient is cooperative and pleasant 16:30 Chest/axilla: 2 sutures are noted to the left anterior lateral chest wall, no purulent drainage appreciated, no induration, nontender to palpation. Vital Signs: 16:34 Pulse 88; Resp 16; Temp 98.1; Pulse Ox 100% on R/A; Weight 52.16 kg; Height 4 ft. 8 in. hb (142.24 cm); Pain 0/10; 16:34 Body Mass Index 25.78 (52.16 kg, 142.24 cm) hb MDM: 16:30 Patient medically screened. [facility] 16:43 Data reviewed: vital signs, nurses notes. Counseling: I had a detailed discussion with lashon the patient and/or guardian regarding: the historical points, exam findings, and any diagnostic results supporting the discharge/admit diagnosis, the need for outpatient follow up, to return to the emergency department if symptoms worsen or persist or if there are any questions or concerns that arise at home. Administered Medications: No medications were administered Disposition: 17:42 Co-signature as Attending Physician, López Drummond MD. rn Disposition Summary: 04/19/22 16:43 Discharge Ordered Location: Home [facility] Condition: Stable [facility] Diagnosis - Evaluation of Sutures [facility] Followup: [facility] - With: Private Physician - When: As needed - Reason: Recheck today's complaints, Continuance of care, Re-evaluation by your physician Forms: - Medication Reconciliation Form [facility] - Thank You Letter [facility] - Antibiotic Education [facility] - Prescription Opioid Use [facility] Signatures: Shaggy Mitchell PA PA jmm Nieto, Roman, MD MD rn Savannah Uriostegui RN RN
--- NOTE | 2022-04-19 16:44 | ER ---
Nurse's Notes [facility] Name: Jen Joyce Age: 46 yrs Sex: Female : 1975 Arrival Date: 04/19/2022 Time: 16:23 Bed 9 Private MD: Diagnosis: Evaluation of Sutures Presentation: 04/19 16:34 Chief complaint: Left chest tube sutures placed on 02/19, here for removal. Coronavirus hb screen: At this time, the client does not indicate any symptoms associated with coronavirus-19. Ebola Screen: No symptoms or risks identified at this time. Initial Sepsis Screen: Does the patient meet any 2 criteria? No. Patient's initial sepsis screen is negative. Does the patient have a suspected source of infection? No. Patient's initial sepsis screen is negative. Risk Assessment: Do you want to hurt yourself or someone else? Patient reports no desire to harm self or others. Onset of symptoms was April 19, 2022. 16:34 Method Of Arrival: Ambulatory hb 16:34 Acuity: TAMELA 4 hb Historical: - Allergies: 16:36 Amoxicillin; hb - Home Meds: 16:36 albuterol sulfate 1.25 mg/3 mL Inhl nebu [Active]; hb - PMHx: 16:36 Asthma; hb - Immunization history:: Adult Immunizations up to date. - Social history:: Smoking status: Patient denies any tobacco usage or history of. Screenin:36 [facility] ED Fall Risk Assessment (Adult) Score/Fall Risk Level 0 - 2 = Low Risk hb Oriented to surroundings, Maintained a safe environment. Abuse screen: Denies threats or abuse. Denies injuries from another. Nutritional screening: No deficits noted. Tuberculosis screening: No symptoms or risk factors identified. Vital Signs: 16:34 Pulse 88; Resp 16; Temp 98.1; Pulse Ox 100% on R/A; Weight 52.16 kg; Height 4 ft. 8 in. hb (142.24 cm); Pain 0/10; 16:34 Body Mass Index 25.78 (52.16 kg, 142.24 cm) hb ED Course: 16:23 Patient arrived in ED. am2 16:23 Shaggy Mitchell PA is PHCP. [facility] 16:23 López Drummond MD is Attending Physician. [facility] 16:36 Triage completed. hb 16:36 Arm band placed on. hb 16:51 No provider procedures requiring assistance completed. Patient did not have IV access jl7 during this emergency room visit. Administered Medications: No medications were administered Outcome: 16:43 Discharge ordered by . lashon 16:51 Discharged to home ambulatory. jl7 16:51 Condition: stable 16:51 Discharge instructions given to patient, Instructed on discharge instructions, follow up and referral plans. Demonstrated understanding of instructions, follow-up care. 16:52 Patient left the ED. jl7 Signatures: Shaggy Mitchell PA PA jmm Baxter, Heather, RN RN Louise Kellogg RN RN jl7 Odessa Jiménez
[2022-04-19 16:57] VITALS: TEMP 98.1; O2SAT 100
== END 2022-04-19 16:52 | disposition home or self-care (01) ==
LOC: ER 16:20
DX: Z48.02 Encounter for removal of sutures (principal)
CPT/HCPCS: 99281

== ENCOUNTER 2022-05-11 15:48 | Emergency (ER) | payer SELFPAY ==
--- OUTSIDE RECORDS SUMMARY | 2022-05-11 16:00 | XMS REPORT | Continuity of Care Document ---
:1975 Author Organization [facility] t Address [address] [place] [address] Care Team Providers Name Role Phone Payal AVILA, Christoph Bonilla Attending Clinician [phone] Santiago Villarreal MD Attending Clinician Kendell Forde MD Attending Clinician [phone] SANTIAGO VILLARREAL Attending Clinician Unavailable Ralph Maya MD Attending Clinician Daniella Fine MD Attending Clinician Otoniel Haque MD Attending Clinician KENDELL FORDE Admitting Clinician Unavailable Problems Condition [...] prox desc desc thoracic thoracic ao ao [id number] mm mm Gelweave Gelweave graft.(Moo graft.(Moo n) n) Other Other Disease Active 2021-[address] [facility] chest pain chest pain 04-18 [facility] 00:00: Medical 00 Center Allergies, Adverse Reactions, Alerts Allergy Allergy Status Severity Reaction(s) Onset Inactive Treating Comm ents Source Name Type Date Date Clinician Amoxicil Propensi Active Hives 2021-[address] [facility] y[facility] ty to 04-18 [facility] adverse 00:[facility]: Medical reaction 00 Center s AMOXICIL Allergy Active High Hives 2021-[address] [facility] [address] [facility]AZMIN 04-18 [facility] 00[facility] Family History Family Member Diagnosis Comments Start Date Stop Date Source Natural son [facility] Social History Social Habit Start Date Stop Date Quantity Comments Source History SDOH [facility] Alcohol Std Drinks Medica l Center History SDOH [facility] Alcohol Binge Medical Sd ter History SDOK [facility] Alcohol Comment Medical C enter History SDOK [facility] Transport [facility]-Med Medical [facility] Alcohol intake 2022-02-20 2022-02-[address] 00:[facility]00 00[facility]00[facility]00 [facility] Cigarettes smoked 2022-02-16 2022-02-[address] [facility] current (pack per 00:00:00 00:00:00 Medical Center day) - Reported Cigarette 2022-02-16 2022-02-[address] [facility] pack-years 00:00:00 00:00:00 Medical Center Tobacco use and 2022-02-16 2022-02-[address] [facility] k[facility] exposure 00:00:00 00:00:00 Medical Center History SDOK 2022-02-16 2022-02-[address] [facility] Alcohol Frequency 00:00:00 00:00:00 Medical Center History [facility] 2022-02-16 2022-02-[address] [facility] Transport Med 00:00:00 00:00:[address] History SDOH 2022-02-16 2022-02-[address] [facility] Housing Unable to 00:00:00 00:00:00 Medical Center Pay History [facility] 2022-02-16 2022-02-[address] [facility] Housing Places 00:00:00 00:00:00 Medical Ce nter Lived History [facility] 2022-02-16 2022-02-16 2 [facility] Housing Homeless 00:00:00 00:00:00 Medical Center Last Year History of tobacco 2010-02-16 2022-01-16 Smoker [facility] use 00:00:00 00:00:00 [facility] Sex Assigned At [birth year] [facility] 00:00:00 00:00:00 Medical Center Smoking Status Start Date Stop Date Source Former smoker 2022-02-16 00:00:00 2022-02-16 00:00:00 [facility] Medications Ordered Filled Start Stop Current Ordering Indication Dosage Frequency Signature Comments Components Source Medication Medication Date Date Medication? Clinician (SIG) Name Name acetaminoph 2021-04 Yes pain 500mg Take [address] en 1-15 mg by [facility] (TYLENOL) 12:47: mouth Medical 500 MG 55 every 6 Center tablet (six) hours as needed for Pain. acetaminoph 2021-04 Yes pain 500mg Take [address] en 1-15 [facility] (TYLENOL) 12:47: mouth Medical 500 MG 55 every 6 Center tablet (six) hours as needed for Pain. acetaminoph 2021-04 Yes pain 500mg Take [address] en 1-15 mg by [facility] (TYLENOL) 12:47: mouth Medical 500 MG 55 every 6 Center tablet (six) hours as needed for Pain. cefpodoxime 2021- No 200mg Take [address] [facility] [address] (VANTIN) 8-25 11-15 mg by [facility] 200 MG 00:00: 00:00 mouth. Medical tablet 00 :00 [facility] cefpodoxime 2021- No 200mg Take [address] (VANTIN) 8-25 11-15 mg by [facility] 200 MG 00:00: 00:00 mouth. Medical tablet 00 :00 [facility] cefpodoxime 2021- No 200mg Take [address] (VANTIN) 8-25 11-15 mg by [facility] 200 MG 00:00: 00:00 mouth. Medical tablet 00 :00 [facility] Vital Signs Vital Name Observation Time Observation [...] kg Systolic blood 2022-02-24 12:16:00 119 mm[Hg] [facility] Diastolic blood 2022-02-24 12:16:00 75 mm[Hg] [facility] Heart rate 2022-02-24 12:16:00 57 /min [facility] Body temperature 2022-02-24 12:16:00 37 Barbara [facility] Respiratory rate 2022-02-24 12:16:00 18 /min [facility] Oxygen saturation in 2022-02-24 12:16:00 95 /min [facility] Arterial blood by Medical Ce nter Pulse oximetry Body weight 2022-02-20 04:00:00 60.5 kg [facility] BMI 2022-02-20 04:00:00 29.90 kg/m2 [facility] Body height 2022-02-16 05:00:00 142.2 cm [facility] Procedures Procedure Date / Time Performing Clinician Source Performed POCT-GLUCOSE METER 2022-02-24 07:39:00 Santiago Villarreal [facility] XR CHEST 1 VIEW PORTABLE 2022-02-24 07:12:00 Jessica Dao [facility] / BEDSIDE Medical Center MAGNESIUM 2022-02-24 05:30:00 Jessica Dao [facility] PROTHROMBIN TIME/INR 2022-02-24 05:30:00 Jessica Dao [facility] POCT-GLUCOSE METER 2022-02-23 20:49:00 Teo Santiago Saavedra [facility] POCT-GLUCOSE METER 2022-02-23 16:46:00 [facility]SE [facility] 2022-02-23 12:04:00 [facility] PO[facility]-GLUCOSE METER 2022-02-23 08:27:00 Teo Santiago [facility] XR CHEST 1 VIEW PORTABLE 2022-02-23 07:54:00 Jessica Dao [facility] MAGNESIUM 2022-02-23 05:22:00 Jessica Dao [facility] PROTHROMBIN TIME/INR 2022-02-23 05:22:00 Jessica Dao [facility] POCT-GLUCOSE METER 2022-02-22 21:00:00 [facility] PO[facility]-GLUCOSE METER 2022-02-22 16:56:00 Teo [facility] POCT-GLUCOSE METER 2022-02-22 11:19:00 Teo [facility] XR CHEST 1 VIEW PORTABLE 2022-02-22 10:54:[address] [facility] POCT-GLUCOSE METER 2022-02-22 07:59:00 Santiago Villarreal [facility] BASIC METABOLIC PANEL 2022-02-22 07:06:00 Jessica Dao [facility] MAGNESIUM 2022-02-22 07:06:00 Jessica Dao [facility] PHOSPHORUS 2022-02-22 07:06:00 Jessica Dao [facility] XR CHEST 1 VIEW PORTABLE 2022-02-22 06:36:00 Jessica Dao [facility] POCT-GLUCOSE METER 2022-02-21 23:14:00 Santiago Villarreal [facility] POCT-GLUCOSE METER 2022-02-21 16:50:00 Santiago Villarreal [facility] POCT-GLUCOSE METER 2022-02-21 12:45:00 Santiago Villarreal [facility] POCT-GLUCOSE METER 2022-02-21 11:34:00 Santiago Villarreal [facility] POCT-GLUCOSE METER 2022-02-21 07:59:00 [facility] POCT-GLUCOSE METER 2022-02-21 07:34:00 [facility]ST 1 VIEW PORTABLE 2022-02-21 06:41:00 Jessica Dao [facility] CBC (HEMOGRAM ONLY) 2022-02-21 04:22:00 Jessica Dao [facility] BASIC METABOLIC PANEL 2022-02-21 04:22:00 Jessica Dao [facility] MAGNESIUM 2022-02-21 04:22:00 Jessica Dao [facility] PHOSPHORUS 2022-02-21 04:22:00 Jessica Dao [facility] APTT 2022-02-21 04:22:00 Jessica Dao [facility] PROTHROMBIN TIME/INR 2022-02-21 04:22:00 Jessica Dao [facility] PREPARE RBC 2022-02-20 23:54:[address] [facility] PREPARE PLASMA 2022-02-20 23:54:00 Otoniel Haque [facility] XR CHEST 1 VIEW PORTABLE 2022-02-20 03:24:00 Jessica Dao [facility] CBC (HEMOGRAM ONLY) 2022-02-20 02:34:00 Jessica Dao [facility] BASIC METABOLIC PANEL 2022-02-20 02:34:00 Jessica Dao [facility] MAGNESIUM 2022-02-20 02:34:00 FelibertoJessica hoyos [facility] PHOSPHORUS 2022-02-20 02:34:00 Feliberto Jessica Corea [facility] APTT 2022-02-20 02:34:00 Jessica Dao [facility] PROTHROMBIN TIME/INR 2022-02-20 02:34:00 Jessica Dao [facility] OXYGEN SATURATION, 2022-02-20 02:34:00 Feliberto Jessica Corea [facility] BLOOD GAS, ARTERIAL 2022-02-19 15:00:00 Jessica Dao [facility] PROTHROMBIN TIME/INR 2022-02-19 15:00:00 Jessica Dao [facility] APTT 2022-02-19 15:00:00 Jessica Dao [facility] OXYGEN SATURATION, 2022-02-19 15:00:00 Jessica Dao [facility] BASIC METABOLIC PANEL 2022-02-19 15:00:00 Jessica Dao [facility] CBC W/PLT COUNT & AUTO 2022-02-19 15:00:00 Jessica Dao [facility] MAGNESIUM 2022-02-19 15:00:00 Jessica Dao [facility] PHOSPHORUS 2022-02-19 15:00:00 Jessica Dao [facility] CBC W/PLT COUNT & AUTO 2022-02-19 15:00:00 Jessica Dao [facility] XR CHEST 1 VIEW PORTABLE 2022-02-19 14:38:00 Jessica Dao [facility] PLATELET COUNT 2022-02-19 12:43:15 Francesco [facility] RRL CRITICAL LABS 2022-02-19 12:40:07 Ralph Maya [facility] es (ABG,NA,K,H&H,GLUCOSE) Medical C enter CALCIUM, IONIZED 2022-02-19 12:40:07 [facility] PROTHROMBIN TIME/INR 2022-02-19 12:40:07 [facility] APTT 2022-02-19 12:40:07 [facility] FIBRINOGEN 2022-02-19 12:40:07 [facility] BLOOD GAS, ARTERIAL 2022-02-19 12:40:07 [facility] SODIUM NA-STAT LAB 2022-02-19 12:40:07 [facility] 2022-02-19 12:40:07 [facility] GLUCOSE-STAT LAB 2022-02-19 12:40:07 [facility] HGB/HCT (H&H) - STAT LAB 2022-02-19 12:40:07 [facility] POCT-ACT 2022-02-19 12:39:00 Teo [facility] TRANSFUSE PLASMA 2022-02-19 12:17:00 [facility] TRANSFUSE LEUKO-REDUCED 2022-02-19 12:03:00 [facility] POCT-ACT 2022-02-19 11:42:00 Teo [facility] RRL CRITICAL LABS 2022-02-19 11:41:26 [facility] (ABG,NA,K,H&H,GLUCOSE) Medical C enter CALCIUM, IONIZED 2022-02-19 11:41:26 [facility] BLOOD GAS, ARTERIAL 2022-02-19 11:41:26 [facility] SODIUM NA-STAT LAB 2022-02-19 11:41:26 [facility] POTASSIUM-STAT LAB 2022-02-19 11:41:26 [facility] GLU[facility]SE-[facility] LAB 2022-02-19 11:41:26 [facility] HGB/HCT (H&H) - STAT LAB 2022-02-19 11:41:26 Francesco [facility] POCT-ACT 2022-02-19 11:17:00 [facility]S 2022-02-19 10:46:40 Francesco [facility] (ABG,NA,K,H&H,GLUCOSE) Medical C enter CALCIUM, IONIZED 2022-02-19 10:46:40 [facility] BLOOD GAS, ARTERIAL 2022-02-19 10:46:40 Francesco, [facility] SODIUM NA-STAT LAB 2022-02-19 10:46:40 Francesco, [facility] POTASSIUM-STAT LAB 2022-02-19 10:46:40 [facility] GLUCOSE-STAT LAB 2022-02-19 10:46:40 Francesco [facility] HGB/HCT (H&H) - STAT LAB 2022-02-19 10:46:40 Francesco [facility] POCT-ACT 2022-02-19 10:30:00 Santiago Villarreal [facility] BLOOD GAS, ARTERIAL 2022-02-19 09:46:53 Francesco [facility] CALCIUM, IONIZED 2022-02-19 09:46:53 [facility] HEMOGLOBIN AND HEMATOCRIT 2022-02-19 09:46:00 Francesco [facility] REPAIR, ANEURYSM, AORTA, 2022-02-19 07:34:00 HaqueOtoniel [facility] THORACIC, DESCENDING Medical Sd ter THORACOTOMY 2022-02-19 07:34:00 HaqueOtoniel [facility] POCT-GLUCOSE METER 2022-02-19 05:55:00 Santiago Villarreal [facility] BASIC METABOLIC PANEL 2022-02-19 05:05:00 NottVera [facility] MAGNESIUM 2022-02-19 05:05:00 NottVera [facility] PHOSPHORUS 2022-02-19 05:05:00 Nott, Vera [facility] SARS-COV2/RT-PCR ([facility] & 2022-02-19 01:57:00 Jessica Dao [facility] REF LABS) Medical Center PREPARE RBC 2022-02-18 21:10:00 [facility] ABORH, MANUAL 2022-02-18 20:55:00 Alanna Lacy [facility] TYPE AND SCREEN, 2022-02-18 20:08:00 [facility] AUTOMATED [facility] CBC W/PLT COUNT & AUTO 2022-02-18 04:33:00 Nott, Vera machado [facility] BASIC METABOLIC PANEL 2022-02-18 04:33:00 Nott, Vera Davenport [facility] MAGNESIUM 2022-02-18 04:33:00 Nott, Vera [facility] PHOSPHORUS 2022-02-18 04:33:00 Nott, Vera [facility] CBC W/PLT COUNT & AUTO 2022-02-18 04:33:00 Nott, Vera machado [facility] (CELLAVISION MANUAL DIFF) 2022-02-18 04:33:00 Nott, Vera burns [facility] 2D ECHO W/ DOPPLER 2022-02-17 14:43:26 [facility] (CW/PW/COLOR) [facility] CBC W/PLT COUNT & AUTO 2022-02-17 04:30:00 Nott, Vera machado [facility] BASIC METABOLIC PANEL 2022-02-17 04:30:00 Nott, Vera Davenport [facility] MAGNESIUM 2022-02-17 04:30:00 Nott, Vera [facility] PHOSPHORUS 2022-02-17 04:30:00 [facility] W/[facility]T COUNT & AUTO 2022-02-17 04:30:00 Nott, Vera machado [facility] (CELLAVISION MANUAL DIFF) 2022-02-17 04:30:00 Vera Arce [facility] CTA CHEST,ABDOMEN & 2022-02-16 10:48:[address] [facility] PELVIS - FOR DISSECTION [facility] POCT-GLUCOSE METER 2022-02-16 06:34:00 Santiago Villarreal [facility] COMPREHENSIVE METABOLIC 2022-02-16 05:45:00 Oc, [facility] PANEL [facility] MAGNESIUM 2022-02-16 05:45:00 Oc, [facility] PHOSPHORUS 2022-02-16 05:45:00 Oc [facility] PROTHROMBIN TIME/INR 2022-02-16 05:45:00 Oc [facility] APTT 2022-02-16 05:45:00 Oc, [facility] FIBRINOGEN 2022-02-16 05:45:00 Oc, [facility] CBC W/PLT COUNT & AUTO 2022-02-16 05:45:00 NotVera lopez [facility] HCG, QUANTITATIVE, 2022-02-16 05:45:00 Oc, [facility] HIGH SENSITIVITY TROPONIN 2022-02-16 05:45:00 Oc [facility] I [facility] CBC W/PLT COUNT & AUTO 2022-02-16 05:45:00 Oc, [facility] (CELLAVISION MANUAL DIFF) 2022-02-16 05:45:00 Oc [facility] XR CHEST 1 VIEW PORTABLE 2022-02-16 05:37:00 Oc [facility] / BEDSIDE [facility] VASCULAR DIAGRAM -SCAN 2022-02-16 00:00:[address] [facility] Plan of Care Planned Activity Planned Date Details Comments Source Future Scheduled 2023-02-[address] [facility] Test 00:00:00 [facility] r Screening (12+) [code = Tobacco Cessation Counseling and Screening (12+)] Future Scheduled 2023-02-[address] [facility] Test 00:00:00 [facility] Cent[facility] r Screening (12+) [code = Tobacco Cessation Counseling and Screening (12+)] Future Scheduled 2023-02-[address] [facility] Test 00:00:00 [facility] Medical Cente r Screening (12+) [code = Tobacco Cessation Counseling and Screening (12+)] Future Scheduled 2022-04-[address] [facility] Test 00:00:00 (12+) [code = [facility] DEPRESSION SCREENING (12+)] Future Scheduled 2022-04-[address] [facility] Test 00:00:00 (12+) [code = [facility] DEPRESSION SCREENING (12+)] Future Scheduled 2022-04-[address] [facility] Test 00:00:00 (12+) [code = [facility] DEPRESSION SCREENING (12+)] Future Scheduled 2021-12-11 INFLUENZA VACCINE (#1) [facility] 00:00:00 [code = INFLUENZA Medical Ce nter VACCINE (#1)] Future Scheduled 2021-12-11 INFLUENZA VACCINE (#1) [facility] 00:00:00 [code = INFLUENZA Medical Ce nter VACCINE (#1)] Future Scheduled 2021-12-11 INFLUENZA VACCINE (#1) [facility] 00:00:00 [code = INFLUENZA Medical Ce nter VACCINE (#1)] Future Scheduled 2019 Lipid panel (procedure) [facility] Test 00:00:00 [code = 59038429] Medical Ce nter Future Scheduled 2019 Lipid panel (procedure) [facility] Test 00:00:00 [code = 40217006] Medical Ce nter Future Scheduled 2019 Lipid panel (procedure) [facility] Test 00:00:00 [code = 95141480] Medical Ce nter Future Scheduled 1995 Screening for malignant [facility] Test 00:00:00 neoplasm of cervix Medical C enter (procedure) [code = 832618656] Future Scheduled 1995 Screening for malignant [facility] Test 00:00:00 neoplasm of cervix Medical C enter (procedure) [code = 925324341] Future Scheduled 1995 Screening for malignant [facility] Test 00:00:00 neoplasm of cervix Medical C enter (procedure) [code = 148569808] Future Scheduled 1993 DTAP/TDAP/TD VACCINES [facility] 00:00:00 (1 - Tdap) [code = Medical C enter DTAP/TDAP/TD VACCINES (1 - Tdap)] Future Scheduled 1993 DTAP/TDAP/TD VACCINES [facility] 00:00:00 (1 - Tdap) [code = Medical C enter DTAP/TDAP/TD VACCINES (1 - Tdap)] Future Scheduled 1993 DTAP/TDAP/TD VACCINES [facility] 00:00:00 (1 - Tdap) [code = Medical C enter DTAP/TDAP/TD VACCINES (1 - Tdap)] Future Scheduled 1992 HEPATITIS C [facility]CRE[facility]ING [facility]:00[facility]00 [code = HEPATITIS C Medical Center SCREENING] Future Scheduled 1992 HEPATITIS C [facility]CRE[facility]ING [facility] 00:00:00 [code = HEPATITIS C Medical Center SCREENING] Future Scheduled 1992 HEPATITIS C [facility]CRE[facility]ING [facility] 00:00:00 [code = HEPATITIS C Medical Center SCREENING] Future Scheduled [address] [facility] Test 00:00:00 0-64 YRS (1 - PCV) Medical C enter [code = PNEUMOCOCCAL VACCINE 0-64 YRS (1 - PCV)] Future Scheduled [address] [facility] Test 00:00:00 0-64 YRS (1 - PCV) Medical C enter [code = PNEUMOCOCCAL VACCINE 0-64 YRS (1 - PCV)] Future Scheduled [address] [facility] Test 00:00:00 0-64 YRS (1 - PCV) Medical C enter [code = PNEUMOCOCCAL VACCINE 0-64 YRS (1 - PCV)] Future Scheduled 1974 COVID-19 VACCINE (#1) [facility] 00:00:00 [code = COVID-[address] VACCINE (#1)] Future Scheduled 1974 COVID-19 VACCINE (#1) [facility] 00:00:00 [code = COVID-[address] VACCINE (#1)] Future Scheduled 1974 COVID-19 VACCINE (#1) [facility] 00:00:00 [code = COVID-[address] VACCINE (#1)] Future Scheduled 1974 CT Colonography (combo) [facility] Test 00:00:00 [code = CT Colonography [facility] (combo)] Future Scheduled 1974 Screening for malignant [facility] Test 00:00:00 neoplasm of colon Medical Ce nter (procedure) [code = 572851956] Future Scheduled 1974 Screening for malignant [facility] Test 00:00:00 neoplasm of colon Medical Ce nter (procedure) [code = 741003118] Future Scheduled 1974 Screening for malignant [facility] Test 00:00:00 neoplasm of colon Medical Ce nter (procedure) [code = 712533626] Future Scheduled 1974 Screening for malignant [facility] Test 00:00:00 neoplasm of colon Medical Ce nter (procedure) [code = 161478541] Future Scheduled 1974 Sigmoidoscopy [code = [facility] Sigmoidoscopy] Medical Cente r Future Scheduled 1974 CT Colonography (combo) [facility] Test 00:00:00 [code = CT Colonography [facility] (combo)] Future Scheduled 1974 Screening for malignant [facility] Test 00:00:00 neoplasm of colon Medical Ce nter (procedure) [code = 034952927] Future Scheduled 1974 Screening for malignant [facility] Test 00:00:00 neoplasm of colon Medical Ce nter (procedure) [code = 572951098] Future Scheduled 1974 Screening for malignant [facility] Test 00:00:00 neoplasm of colon Medical Ce nter (procedure) [code = 342702288] Future Scheduled 1974 Screening for malignant [facility] Test 00:00:00 neoplasm of colon Medical Ce nter (procedure) [code = 677371875] Future Scheduled 1974 Sigmoidoscopy [code = [facility] 00:[facility] Sigmoidoscopy] Medical Cente r Future Scheduled 1974 CT Colonography (combo) [facility] Test 00:00:00 [code = CT Colonography [facility] (combo)] Future Scheduled 1974 Screening for malignant [facility] Test 00:00:00 neoplasm of colon Medical Ce nter (procedure) [code = 944791494] Future Scheduled 1974 Screening for malignant [facility] Test 00:00:00 neoplasm of colon Medical Ce nter (procedure) [code = 972158768] Future Scheduled 1974 Screening for malignant [facility] Test 00:00:00 neoplasm of colon Medical Ce nter (procedure) [code = 141597296] Future Scheduled 1974 Screening for malignant [facility] Test 00:00:00 neoplasm of colon Medical Ce nter (procedure) [code = 537543979] Future Scheduled 1974 Sigmoidoscopy [code = [facility] Sigmoidoscopy] Medical Cente r Encounters Start End Encounter Admission Attending Care Care Encounter Source Date/Time Date/Time Type Type Clinicians Facility Department ID 2022-02-16 2022-02-[facility] [id number] 04:[facility] 12:46[facility]00 [facility] 2022-02-24 Inpatient ER TASHIJESSENIA SANTIAGO [facility] Surgery [id number] [facility] 04:46:00 12:46:00 2022-02-16 2022-02-24 [facility] Christoph Bonilla [facility] [id number] 04:46:00 12:46:00 [facility] 2022-02-19 2022-02-19 Anesthesia Francesco [facility] [id number] 07:52:00 14:28:00 Event Daniella Fine [facility] 2022-02-19 2022-02-19 [facility] [id number] [facility] St 07:52:00 14:28:00 Event Daniella Fine [facility] 2022-02-19 2022-02-[address] [facility] [id number] [facility] St 07:30:00 13:00:00 [facility] 2022-02-19 2022-02-[address] [facility] [id number] [facility] [address] 07:30:00 13:00:00 [facility] 2022-02-16 2022-02-16 Outpatient [facility] [id number] [facility] 04:46:00 23:59:00 [place] 2022-02-16 2022-02-[address] [facility] [id number] [facility] St 00:00:00 00:00:00 [facility] 2022-02-16 2022-02-[address] [facility] [id number] [facility] St 00:00:00 00:00:00 [facility] Results Test Description Test Time Test Comments Results Result [facility] e Comments RAD, CHEST, 1 2022-02-10 Reason for VIEW, NON DEPT 5 exam:->Post op chest 07:55:00 tubes, atelectasis, effusion, [facility] - pneumothorax, [facility]: tamponadeShould this MINI WATTSA MAY be performed at the : 1975 [...] Normal contours. Additional findings: None. Signed: Della Harden Verified Date/Time: 02/24/2022 07:55:43 Reading Location: [address] Reading Room -Glucose meter 2022-02-24 07:54:21 Test Item Value Reference Range Interpretation Comme nts POC-Glucose Meter (test code = 87 mg/dL 70-110 : TESTED AT [facility] [address] [facility] 1538) [facility] 30: Call Center Director/Techni rosa ID = [id number] for BERNABE REDK A Lab Interpretation (test code = Normal 76987-2) [facility]-Glucose [id number] 07:54:21 Test Item Value Reference Range Interpretation Comments POC-Glucose Meter (test 87 mg/dL 70-110 : TE STED AT [facility] code = 1538) 6712 [place] [address], [facility] 30: Call Center Director/Techni rosa ID = [id number] for TEOFILOBERNABEK A Lab Interpretation (test Normal code = 51723-3) [facility]-Glucose [id number] 07:54:21 Test Item Value Reference Range Interpretation Comments POC-Glucose Meter (test 87 mg/dL 70-110 : TE STED AT [facility] code = 1538) [address] [place] [address], [facility] 30: Call Center Director/Techni rosa ID = [id number] for TEOFILOBERNABEK A Lab Interpretation (test Normal code = 67892-4) [facility]-GLUCOSE [id number] 07:54:21 Test Item Value Reference Range Interpretation Comments POC-GLUCOSE METER 87 mg/dL 70-110 : TESTED A T [facility] 6720 (BEAKER) (test code = BERTNE R [facility], 1538) [address]: Call Center Director/Techni rosa ID = [id number] for WILL BERNABE ARECHIGAKA [id number] 06:50:48 Test Item Value Reference Range Interpretation Comments MAGNESIUM (BEAKER) (test code = 2.1 mg/dL 1.6-2.6 627) Call Center Director ID - KATIE MPROTHROMBIN TIME/[id number] 06:29:19 Test Item Value Reference Range Interpretation Comments PROTIME (BEAKER) 14.0 seconds 11.9-14.2 (test code = 759) INR (BEAKER) (test 1.10 See_Comment [Automat ed message] code = 370) The system VNG generated this result transmitted ref erence range: <=5.90. The reference range was not used to int erpret this result as normal/abnormal . RECOMMENDED COUMADIN/WARFARIN INR THERAPY RANGESSTANDARD DOSE: 2.0 - 3.0 Includes: PROPHYLAXIS for venous thrombosis, systemic embolization; TREATMENT for venous thrombosis and/or pulmonary embolus.HIGH RISK: Target INR is 2.5-3.5 for patients with mechanical heart valves.POCT-GLUCOSE [id number] 21:01:30 Test Item Value Reference Range Interpretation Comments POC-GLUCOSE METER 101 mg/dL 70-110 : TESTED A T [facility] 6720 (BEAKER) (test code = [facility] F2G [facility], 1538) [address]: Call Center Director/Techni rosa ID = [id number] for LI MARISSA DALE POCT-GLUCOSE [id number] 16:58:48 Test Item Value Reference Range Interpretation Comments POC-GLUCOSE METER 83 mg/dL 70-110 : TESTED A T [facility] 6720 (BEAKER) (test code = [facility] F2G [facility], 1538) 40946: Call Center Director/Techni rosa ID = [id number] for WILL IAMS, TYNEKA POCT-GLUCOSE [id number] 12:15:59 Test Item Value Reference Range Interpretation Comments POC-GLUCOSE METER 75 mg/dL 70-110 : TESTED A T [facility] 6720 (BEAKER) (test code = [facility] F2G [facility], 1538) 73647: Call Center Director/Techni rosa ID = [id number] for WILL IAMS, TYNEKA POCT-GLUCOSE [id number] 08:39:03 Test Item Value Reference Range Interpretation Comments POC-GLUCOSE METER 91 mg/dL 70-110 : TESTED A T [facility] 6720 (BEAKER) (test code = GRANT Dan [facility], 1538) 12262: Call Center Director/Techni rosa ID = [id number] for WILL AMIE ARECHIGA RAD, CHEST, 1 VIEW, NON [id number] 08:05:00Reason for exam:->Post op chest tubes, atelectasis, effusion, pneumothorax, tamponadeShould this be performed at the bedside?->Yes [facility] AUGUST : 1975 Sex: FFINAL REPORT RAD, CHEST, 1 VIEW, NON DEPT INDICATION: Post op chest tubes, atelectasis,effusion, pneumothorax, tamponade COMPARISON: Prior day's exam FINDINGS: Portable frontal view of the chest. IMPRESSION: Support Lines: [place] tip overlies the pulmonary outflow tract. Left chest tubes. Lungs and pleura: Left basilar airspace opacities. Unchanged mild interstitial thickening throughout the left lung. No significant pneumothorax. Heart and mediastinum: Stable contours. Additional findings: None. Signed: Della Harden Verified Date/Time: 02/23/2022 08:05:48 Reading Location: [address] Reading Room [id number] 06:35:32 Test Item Value Reference Range Interpretation Comments MAGNESIUM (BEAKER) (test code = 2.1 mg/dL 1.6-2.6 627) Call Center Director ID - KAITE MPROTHROMBIN TIME/[id number] 05:50:17 Test Item Value Reference Range Interpretation Comments PROTIME (BEAKER) 14.4 seconds 11.9-14.2 H (test code = 759) INR (BEAKER) (test 1.19 See_Comment [Automat ed message] code = 370) The system VNG generated this result transmitted ref erence range: <=5.90. The reference range was not used to int erpret this result as normal/abnormal . RECOMMENDED COUMADIN/WARFARIN INR THERAPY RANGESSTANDARD DOSE: 2.0 - 3.0 Includes: PROPHYLAXIS for venous thrombosis, systemic embolization; TREATMENT for venous thrombosis and/or pulmonary embolus.HIGH RISK: Target INR is 2.5-3.5 for patients with mechanical heart valves.POCT-GLUCOSE [id number] 21:11:53 Test Item Value Reference Range Interpretation Comments POC-GLUCOSE METER 102 mg/dL 70-110 : TESTED A T [facility] 6720 (BEAKER) (test code = ELIZABETHMT Ni [facility], 1538) 832[address]: Call Center Director/Techni rosa ID = [id number] for NICK MCMILLAN RAYNE POCT-GLUCOSE [id number] 17:07:55 Test Item Value Reference Range Interpretation Comments POC-GLUCOSE METER 93 mg/dL 70-110 : TESTED A T [facility] 6720 (BEAKER) (test code = [facility], 1538) 88652: Call Center Director/Techni rosa ID = [id number] for Nima Medina RAD, CHEST, 1 VIEW, NON [id number] 13:31:00Reason for exam:->s/p chest tube pulledShould this be performed at the bedside?->Yes [facility] ROM[facility]N : 1975 Sex: FFINAL REPORT Chest, 1 [...] Sina Gunter Verified Date/Time: 02/22/2022 13:31:08 POCT-GLUCOSE [id number] 11:30:41 Test Item Value Reference Range Interpretation Comments POC-GLUCOSE METER 107 mg/dL 70-110 : TESTED A T [facility] 6720 ([facility]) (test code = [facility] [place], 1538) [address]: Call Center Director/Techni rosa ID = [id number] for Do Joseph mooren RAD, CHEST, 1 VIEW, NON [id number] 10:11:00Reason for exam:->Post op chest tubes, atelectasis, effusion, pneumothorax, tamponadeShould this be performed at the bedside?->Yes [facility] AUGUST : 1975 Sex: FFINAL REPORT Chest one view. Clinical history: Post op chest tubes, atelectasis, effusion, pneumothorax, tamponade Comparison: 02/21/2022 Discussion: A frontal chest is provided. Cardiomediastinal contours are unchanged. Lines and tubes are in stable position. Bibasilar opacities are uncha nged. No definite new consolidation. No pneumothorax. No large effusion. Signed: Jacklyn Mayo Verified Date/Time: 02/22/2022 10:11:10 Reading Location: [facility] C013X Ortho Consult Reading Room [id number] 08:36:51 Test Item Value Reference Range Interpretation Comments PHOSPHORUS (BEAKER) (test code = 2.0 mg/dL 2.3-4.7 L 604) Call Center Director ID - SARAH LBASIC METABOLIC [id number] 08:36:50 Test Item Value Reference Range Interpretation [...] not appl icable for dialysis patien ts Call Center Director ID - SARAH [id number] 08:36:50 Test Item Value Reference Range Interpretation Comments MAGNESIUM (BEAKER) (test code = 2.1 mg/dL 1.6-2.6 627) Call Center Director ID - PIAYA LPOCT-GLUCOSE [id number] 08:11:51 Test Item Value Reference Range Interpretation Comments POC-GLUCOSE METER 75 mg/dL 70-110 : TESTED A T [facility] 6720 (BEAKER) (test code = [facility], 1538) 41883: Call Center Director/Techni rosa ID = [id number] for Jaylyn suárezjacquie Nima POCT-GLUCOSE [id number] 23:25:43 Test Item Value Reference Range Interpretation Comments POC-GLUCOSE METER 84 mg/dL 70-110 : TESTED A T [facility] 6720 (BEAKER) (test code = [facility], 1538) 48847: Call Center Director/Techni rosa ID = [id number] for RAYNE GARCIA POCT-GLUCOSE [id number] 17:02:28 Test Item Value Reference Range Interpretation Comments POC-GLUCOSE METER 123 mg/dL 70-110 H : TESTED A T [facility] 6720 (BEAKER) (test code = [facility], 1538) 18273: Call Center Director/Techni rosa ID = [id number] for Do ariannaguseb, Nima POCT-GLUCOSE [id number] 12:56:08 Test Item Value Reference Range Interpretation Comments POC-GLUCOSE METER 180 mg/dL 70-110 H : TESTED A T [facility] 6720 (BEAKER) (test code = [facility], 1538) 90297: Call Center Director/Techni rosa ID = [id number] for Jose denson Amber POCT-GLUCOSE [id number] 11:46:10 Test Item Value Reference Range Interpretation Comments POC-GLUCOSE METER 208 mg/dL 70-110 H : TESTED A T [facility] 6720 (BEAKER) (test code = [facility], 1538) 99355: Call Center Director/Techni rosa ID = [id number] for Do minguez, Nima RAD, CHEST, 1 VIEW, NON [id number] 08:55:00Reason for exam:->Post op chest tubes, atelectasis, effusion, pneumothorax, tamponadeShould this be performed at the bedside?->Yes [facility] : 1975 Sex: FFINAL REPORT RAD, CHEST, 1 VIEW, NON DEPT INDICATION: Post op chest tubes, atelectasis,effusion, pneumothorax, tamponade COMPARISON: Prior day's exam FINDINGS: Portable frontal view of the chest. IMPRESSION: Support Lines: [place] tip overlies the pulmonary outflow tract. Left chest tubes. Lungs and pleura: Left basilar airspace opacities. Moderate interstitial thickening throughout the left lung. No significant pneumothorax. Heart and mediastinum: Stable contours. Additional findings: None. Signed: Della Harden Verified Date/Time: 02/21/2022 08:55:39 Reading Location: [address] Reading Room POCT-GLUCOSE [id number] 08:11:17 Test Item Value Reference Range Interpretation Comments POC-GLUCOSE METER 89 mg/dL 70-110 : TESTED A T [facility] 6720 (GruvIt) (test code = ELIZABETHMT Ni [facility], 1538) 31509: Call Center Director/Techni rosa ID = [id number] for Nima Medina POCT-GLUCOSE [id number] 07:46:24 Test Item Value Reference Range Interpretation Comments POC-GLUCOSE METER 68 mg/dL 70-110 L : TESTED A T [facility] 6720 (GruvIt) (test code = GRANT Dan [facility], 1538) 58010: Call Center Director/Techni rosa ID = [id number] for Nima Medina BASIC METABOLIC [id number] 06:22:29 Test Item Value Reference Range Interpretation [...] not as accur ate as Creatinine Michaelle evni in predicting glom erular filtration rate . Estimated GFR is not appl icable for dialysis patien ts Call Center Director ID - [id number] 05:31:55 Test Item Value Reference Range Interpretation Comments MAGNESIUM (BEAKER) (test code = 1.8 mg/dL 1.6-2.6 627) Call Center Director ID - [id number] 05:31:55 Test Item Value Reference Range Interpretation Comments PHOSPHORUS (BEAKER) (test code = 1.8 mg/dL 2.3-4.7 L 604) Call Center Director ID - [id number] 05:17:07 Test Item Value Reference Range Interpretation Comments PARTIAL THROMBOPLASTIN TIME 32.1 seconds 22.5-36.0 (BEAKER) (test code = 760) PROTHROMBIN TIME/[id number] 05:16:21 Test Item Value Reference Range Interpretation Comments PROTIME (BEAKER) 16.0 seconds 11.9-14.2 H (test code = 759) INR (BEAKER) (test 1.36 See_Comment [Automat ed message] code = 370) The system VNG generated this result transmitted ref erence range: [...] 0-0 (BEAKER) (test code = 413) Prepare [id number] 23:54:00 Test Item Value Reference Range Interpretation Comments CROSSMATCH (test code = COMPATIBLE 2646) Unit ABO (test code = O Pos 0358613) UNIT NUMBER (test code = [id number] 934-0) Status (test code = RETURNED FROM ISSUE 15100621) Blood Bank Product (test RED BLOOD CELLS code = 2263) PRODUCT CODE (test code = H5845R91 933-2) [facility] [id number] 23:54:00 Test Item Value Reference Range Interpretation Comments Unit ABO (test code = O Neg 1262404) UNIT NUMBER (test code = [id number] 934-0) Status (test code = RETURNED FROM ISSUE 9243611) Blood Bank Product (test FFP code = 2263) PRODUCT CODE (test code = M3839O89 933-2) [facility] [id number] 23:54:00 Test Item Value Reference Range Interpretation Comments CROSSMATCH (test code = COMPATIBLE 2264) Unit ABO (test code = O Pos 8306750) UNIT NUMBER (test code = [id number] 934-0) Status (test code = RETURNED FROM ISSUE 6488153) Blood Bank Product (test RED BLOOD CELLS code = 2263) PRODUCT CODE (test code = O0156H32 933-2) [facility] [id number] 23:54:00 Test Item Value Reference Range Interpretation Comments Unit ABO (test code = O Neg 2859128) UNIT NUMBER (test code = [id number] 934-0) Status (test code = RETURNED FROM ISSUE 15100621) Blood Bank Product (test FFP code = 2263) PRODUCT CODE (test code = Z5021G07 933-2) [facility] [id number] 23:54:00 Test Item Value Reference Range Interpretation Comments CROSSMATCH (test code = COMPATIBLE 2264) Unit ABO (test code = O Pos 7643719) UNIT NUMBER (test code = [id number] 934-0) Status (test code = RETURNED FROM ISSUE 5546204) Blood Bank Product (test RED BLOOD CELLS code = 2263) PRODUCT CODE (test code = P3425M26 933-2) [facility] [id number] 23:54:00 Test Item Value Reference Range Interpretation Comments Unit ABO (test code = O Neg 2451653) UNIT NUMBER (test code = [id number] 934-0) Status (test code = RETURNED FROM ISSUE 7406855) Blood Bank Product (test FFP code = 2263) PRODUCT CODE (test code = V6445C27 933-2) [facility] - PEL[facility], FOR DISSECTION 2022-02-20 13:39:00Unlisted Reason for Exam - Click Yes and Enter Reason Below->No[facility] AUGUST : 1975 Sex: FAddendum BeginsREPORT STATUS:A Addendum: I agree with the previously described non vascular findings by Dr. Camp. Signed: Brendon Sharp MDReport Verified Date/Time: 02/20/2022 13:39:21 Reading Location: [facility] Radiology Reading RoomAddendum EndsFINAL REPORT CT [...] An addendum will be dictated by the Animal Nursery Worker Radiologist regarding the nonvascular findings. THE REPORT WILL ONLY BE CONSIDERED COMPLETE AFTER THE ADDENDUM HAS BEEN DICTATED. Signed: Johnathan Camp MDReport Verified Date/Time: 02/17/2022 16:40:13 RAD, CHEST, 1 VIEW, NON DEPT 2022-02-20 08:22:00Reason for exam:->Post op chest tubes, atelectasis, effusion, pneumothorax, tamponadeShould this be performed at the bedside?->Yes[facility] : 1975 Sex: FFINAL REPORT RAD, CHEST, 1 VIEW, NON DEPT INDICATION: Post op chest tubes, atelectasis,effusion, pneumothorax, tamponade COMPARISON: Prior day's exam FINDINGS: Portable frontal view of the chest. IMPRESSION: Support Lines: NG tube descends below the diaphragm. [place] tip overlies the pulmonary outflow tract. Left chest tubes. Lungs and pleura: New diffuse interstitial thickening, representing singly or in combination, interstitial edema and/or pneumonitis. No significant pneumothorax. Heart and mediastinum: Stable contours. Additional findings: None. Signed: Della Harden Verified Date/Time: 02/20/2022 08:22:33 Reading Location: [address] Reading Room POC ACTIVATED CLOTTING [id number] 06:24:22 Test Item Value Reference Range Interpretation Comments Activated Clotting Time 121 sec : 74 -137 seconds, (test code = 3184-9) Baselin e: TESTED AT [address], [facility] 30: Call Center Director/Techni rosa ID = [id number] for Le , Gray [facility] ACTIVATED CLOTTING [id number] 06:24:22 Test Item Value Reference Range Interpretation Comments Activated Clotting Time 121 sec : 74 -137 seconds, (test code = 3184-9) Baselin e: TESTED AT [facility] [address] [facility], 770 30: Call Center Director/Techni rosa ID = [id number] for Le , Gray [facility] ACTIVATED CLOTTING [id number] 06:24:22 Test Item Value Reference Range Interpretation Comments Activated Clotting Time 121 sec : 74 -137 seconds, (test code = 3184-9) Baselin e: TESTED AT [address], 770 30: Call Center Director/Techni rosa ID = [id number] for Le , Gray [id number] 06:24:22 Test Item Value Reference Range Interpretation Comments ACTIVATED CLOTTING TIME 121 sec : 74 -137 seconds, (BEAKER) (test code = Baseli ne: TESTED AT 441) [address], 770 30: Call Center Director/Techni rosa ID = [id number] for Le , Gray [id number] 06:24:22 Test Item Value Reference Range Interpretation Comments ACTIVATED CLOTTING TIME 271 sec : 74 -137 seconds, (BEAKER) (test code = Baseli ne: TESTED AT 441) [address], 770 30: Call Center Director/Techni rosa ID = [id number] for Le , Gray [id number] 06:24:21 Test Item Value Reference Range Interpretation Comments ACTIVATED CLOTTING TIME 237 sec : 74 -137 seconds, (BEAKER) (test code = Baseli ne: TESTED AT 441) [address], 770 30: Call Center Director/Techni rosa ID = [id number] for Le , Gray [id number] 06:24:20 Test Item Value Reference Range Interpretation Comments ACTIVATED CLOTTING TIME 277 sec : 74 -137 seconds, (BEAKER) (test code = Baseli ne: TESTED AT 441) [address], [facility] 30: Call Center Director/Techni rosa ID = [id number] for Le , Gray OXYGEN SATURATION, [id number] 04:06:04 Test Item Value Reference Range Interpretation Comments O2 SATURATION (MEASURED) (BEAKER) 90.1 % (test code = 1455) BASIC METABOLIC [id number] 04:05:14 Test Item Value Reference Range Interpretation [...] not appl icable for dialysis patien ts Call Center Director ID - [id number] 03:53:40 Test Item Value Reference Range Interpretation Comments PARTIAL THROMBOPLASTIN TIME 33.2 seconds 22.5-36.0 (BEAKER) (test code = 760) [id number] 03:53:00 Test Item Value Reference Range Interpretation Comments PHOSPHORUS (BEAKER) (test code = 4.8 mg/dL 2.3-4.7 H 604) Call Center Director ID - BSPROTHROMBIN TIME/[id number] 03:53:00 Test Item Value Reference Range Interpretation Comments PROTIME (BEAKER) 16.3 seconds 11.9-14.2 H (test code = 759) INR (BEAKER) (test 1.34 See_Comment [Automat ed message] code = 370) The system VNG generated this result transmitted ref erence range: <=5.90. The reference range was not used to int erpret this result as normal/abnormal . RECOMMENDED COUMADIN/WARFARIN INR THERAPY RANGESSTANDARD DOSE: 2.0 - 3.0 Includes: PROPHYLAXIS for venous thrombosis, systemic embolization; TREATMENT for venous thrombosis and/or pulmonary embolus.HIGH RISK: Target INR is 2.5-3.5 for patients with mechanical heart valves.[id number] 03:52:59 Test Item Value Reference Range Interpretation Comments MAGNESIUM (BEAKER) (test code = 1.4 mg/dL 1.6-2.6 L 627) Call Center Director ID - [id number] (HEMOGRAM ONLY)2022-02-20 03:17:33 Test [...] (BEAKER) (test code = 413) BASIC METABOLIC [id number] 15:56:08 Test Item Value Reference Range Interpretation [...] not appl icable for dialysis patien ts Call Center Director ID - [id number] 15:53:03 Test Item Value Reference Range Interpretation Comments MAGNESIUM (BEAKER) 1.7 mg/dL 1.6-2.6 Specimen slightly (test code = 627) hemolyzed Call Center Director ID - [id number] 15:53:03 Test Item Value Reference Range Interpretation Comments PHOSPHORUS (BEAKER) 4.0 mg/dL 2.3-4.7 Specimen slightly (test code = 604) hemolyzed Call Center Director ID - [id number] 15:42:57 Test Item Value Reference Range Interpretation Comments PARTIAL THROMBOPLASTIN TIME 30.9 seconds 22.5-36.0 (BEAKER) (test code = 760) PROTHROMBIN TIME/[id number] 15:41:58 Test Item Value Reference Range Interpretation Comments PROTIME (BEAKER) 15.1 seconds 11.9-14.2 H (test code = 759) INR (BEAKER) (test 1.22 See_Comment [Automat ed message] code = 370) The system VNG generated this result transmitted ref erence range: <=5.90. The reference range was not used to int erpret this result as normal/abnormal . RECOMMENDED COUMADIN/WARFARIN INR THERAPY RANGESSTANDARD DOSE: 2.0 - 3.0 Includes: PROPHYLAXIS for venous thrombosis, systemic embolization; TREATMENT for venous thrombosis and/or pulmonary embolus.HIGH RISK: Target INR is 2.5-3.5 for patients with mechanical heart valves.CBC W/PLT COUNT & AUTO [id number] 15:34:08 Test Item Value Reference Range Interpretation [...] = 2801) RAD, CHEST, 1 VIEW, NON [id number] 15:29:00Reason for exam:->Post-opShould this be performed at the bedside?->Yes [facility] 1975 Sex: FFINAL REPORT RAD, CHEST, 1 VIEW, NON DEPT INDICATION: Post-op COMPARISON: 02/16/2022 FINDINGS: Portable frontal view of the chest. IMPRESSION: Support Lines: ET tube tip is 3 cm superior to maria r. NG tube descends below the diaphragm. [place] tip overlies the pulmonary outflow tract. Left chest tubes. Lungs and pleura: Unchanged airspace and pleural opacities. No significant pneumothorax. Heart and mediastinum: Stable contours. Additional findings: None. Signed: Della Harden MDReport Verified Date/Time: 02/19/2022 15:29:54 Reading Location: [address] Reading Room Blood gas, [id number] 15:24:13 Test Item Value Reference Range Interpretation Comments pH, Arterial (test code 7.42 7.35-7.45 = 2744-1) pCO2, Arterial (test 38 See_Comment [Autom ated message] code = 2019) The system [employer] generated this result transmit lucila reference range : 35 - 45 mm Hg. The reference range was not used to interpret this result as normal/abnormal . pO2, Arterial (test 126 See_Comment H [Automa lucila message] code = 2703-7) The system [employer] generated this result transmit lucila reference range [...] 50 Lab Interpretation Abnormal (test code = 52886-7) [facility], [id number] 15:24:13 Test Item Value Reference Range Interpretation Comments pH, Arterial (test code 7.42 7.35-7.45 = 2744-1) pCO2, Arterial (test 38 See_Comment [Autom ated message] code = 2018-11) The system [employer] generated this result transmit lucila reference range : 35 - 45 mm Hg. The reference range was not used to interpret this result as normal/abnormal . pO2, Arterial (test 126 See_Comment H [Automa lucila message] code = 2703-7) The system [employer] generated this result transmit lucila reference range [...] 50 Lab Interpretation Abnormal (test code = 23216-1) [facility]Blood [facility], [id number] 15:24:13 Test Item Value Reference Range Interpretation Comments pH, Arterial (test code 7.42 7.35-7.45 = 2744-1) pCO2, Arterial (test 38 See_Comment [Autom ated message] code = 2019-8) The system [facility] generated this result transmit lucila reference range : 35 - 45 mm Hg. The reference range was not used to interpret this result as normal/abnormal . pO2, Arterial (test 126 See_Comment H [Automa lucila message] code = 2703-7) The system [facility] generated this result transmit lucila reference range [...] 50 Lab Interpretation Abnormal (test code = 48290-0) [facility] campusBLOOD GAS, [id number] 15:24:13 Test Item Value Reference Range Interpretation [...] (test code = 1819) 50.0 OXYGEN SATURATION, [id number] 15:22:59 Test Item Value Reference Range Interpretation Comments O2 SATURATION (MEASURED) (BEAKER) 83.6 % (test code = 1455) Platelet [id number] 13:32:19 Test Item Value Reference Range Interpretation Comments Platelets (test code 103 See_Comment L Discord ant results = 777-3) compared to previous, clini natalie correlation required.Patien t is in CV OR [Automated message] The system which generated this result transmit lucila reference range : 150 - 450 K/CU MM. The reference range was not u sed to interpret th is result as normal/abnormal . ANTONIA (test code = ANTONIA) Call Center Director ID - [id number] ID - [id number] ID - [id number] Lab Interpretation Abnormal (test code = 40703-2) [facility] campusPlatelet [id number] 13:32:19 Test Item Value Reference Range Interpretation Comments Platelets (test code 103 See_Comment L Discord ant results = 777-3) compared to previous, clini natalie correlation required.Patidevante t is in CV OR [Automated message] The system which generated this result transmit lucila reference range : 150 - 450 K/CU MM. The reference range was not u sed to interpret th is result as normal/abnormal . ANTONIA (test code = ANTONIA) Call Center Director ID - [id number] ID - [id number] ID - [id number] Lab Interpretation Abnormal (test code = 90088-0) [facility] [id number] 13:32:19 Test Item Value Reference Range Interpretation Comments Platelets (test code 103 See_Comment L Discord ant results = 777-3) compared to previous, clini natalie correlation required.Dasha t is in CV OR [Automated message] The system which generated this result transmit lucila reference range : 150 - 450 K/CU MM. The reference range was not u sed to interpret th is result as normal/abnormal . ANTONIA (test code = ANTONIA) Call Center Director ID - [id number] ID - [id number] ID - [id number] Lab Interpretation Abnormal (test code = 15984-0) [facility] [id number] 13:32:19 Test Item Value Reference Range Interpretation Comments PLATELET COUNT 103 K/CU MM 150-450 L Discordant re sults (BEAKER) (test code compared to previous, = 756) clinical correl ation required.Dasha t is in CV OR Call Center Director ID - 6000Operator ID - 6000Operator ID - [id number] 13:17:41 Test Item Value Reference Range Interpretation Comments Fibrinogen (test code = 3255-7) 202 mg/dl 225-434 L Lab Interpretation (test code = Abnormal 93937-0) [facility] 13:17:41 Test Item Value Reference Range Interpretation Comments Fibrinogen (test code = 3255-7) 202 mg/dl 225-434 L Lab Interpretation (test code = Abnormal 84524-7) [facility] 13:17:41 Test Item Value Reference Range Interpretation Comments Fibrinogen (test code = 3255-7) 202 mg/dl 225-434 L Lab Interpretation (test code = Abnormal 52232-6) [facility]EN20[facility]-10 13:17:41 Test Item Value Reference Range Interpretation Comments FIBRINOGEN LEVEL (BEAKER) (test 202 mg/dl 225-434 L code = 658) [id number] 13:17:41 Test Item Value Reference Range Interpretation Comments PARTIAL THROMBOPLASTIN TIME 36.2 seconds 22.5-36.0 H (BEAKER) (test code = 760) PROTHROMBIN TIME/[id number] 13:16:58 Test Item Value Reference Range Interpretation Comments PROTIME (BEAKER) 17.7 seconds 11.9-14.2 H (test code = 759) INR (BEAKER) (test 1.49 See_Comment [Automat ed message] code = 370) The system VNG generated this result transmitted ref erence range: <=5.90. The reference range was not used to int erpret this result as normal/abnormal . RECOMMENDED COUMADIN/WARFARIN INR THERAPY RANGESSTANDARD DOSE: 2.0 - 3.0 Includes: PROPHYLAXIS for venous thrombosis, systemic embolization; TREATMENT for venous thrombosis and/or pulmonary embolus.HIGH RISK: Target INR is 2.5-3.5 for patients with mechanical heart valves.Calcium, [id number] 13:05:48 Test Item Value Reference Range Interpretation Comments Calcium, Ion (test code = 1994-3) 1.29 mmol/L 1.12-1.27 H pH, Blood (test code = 95358-4) 7.39 Lab Interpretation (test code = Abnormal 41651-2) [facility]Stat [id number] 13:05:48 Test Item Value Reference Range Interpretation Comments Hemoglobin (test code = 11.5 See_Comment L [Au tomated message] 231-7) The system VNG generated this result transmitted ref erence range: 12.0 - 1 5.0 GM/DL. The refe rence range was not u sed to interpret this result as normal/abnor mal. Hematocrit (test code = 34.0 % 36.0-45.0 L 4544-3) Lab Interpretation (test Abnormal code = 27143-2) [facility], [id number] 13:05:48 Test Item Value Reference Range Interpretation Comments Calcium, Ion (test code = 1993-) 1.29 mmol/L 1.12-1.27 H pH, Blood (test code = 48126-5) 7.39 Lab Interpretation (test code = Abnormal 80021-1) [facility] [id number] 13:05:48 Test Item Value Reference Range Interpretation Comments Hemoglobin (test code = 11.5 See_Comment L [Au tomated message] 078-7) The system VNG generated this result transmitted ref erence range: 12.0 - 1 5.0 GM/DL. The refe rence range was not u sed to interpret this result as normal/abnor mal. Hematocrit (test code = 34.0 % 36.0-45.0 L 4544-3) Lab Interpretation (test Abnormal code = 74479-6) [facility]Cal[facility], [id number] 13:05:48 Test Item Value Reference Range Interpretation Comments Calcium, Ion (test code = 1993-06) 1.29 mmol/L 1.12-1.27 H pH, Blood (test code = 29103-4) 7.39 Lab Interpretation (test code = Abnormal 07343-0) [facility] [id number] 13:05:48 Test Item Value Reference Range Interpretation Comments Hemoglobin (test code = 11.5 See_Comment L [Au tomated message] 158-7) The system VNG generated this result transmitted ref erence range: 12.0 - 1 5.0 GM/DL. The refe rence range was not u sed to interpret this result as normal/abnor mal. Hematocrit (test code = 34.0 % 36.0-45.0 L 4544-3) Lab Interpretation (test Abnormal code = 37131-4) [facility]CALCIUM, [id number] 13:05:48 Test Item Value Reference Range Interpretation Comments CALCIUM IONIZED (BEAKER) (test 1.29 mmol/L 1.12-1.27 H code = 698) PH, BLOOD (BEAKER) (test code = 7.39 1810) BLOOD GAS, [id number] 13:05:48 Test Item Value Reference Range Interpretation [...] = 1819) 100.0 HGB/HCT (H&H) - STAT [id number] 13:05:48 Test Item Value Reference Range Interpretation Comments HEMOGLOBIN (BEAKER) (test code = 11.5 GM/DL 12.0-15.0 L 410) HEMATOCRIT (BEAKER) (test code = 34.0 % 36.0-45.0 L 411) Glucose-Stat [id number] 13:04:35 Test Item Value Reference Range Interpretation Comments Glucose (test code = 2345-7) 117 mg/dL 70-110 H Lab Interpretation (test code = Abnormal 27701-9) [facility] [id number] 13:04:35 Test Item Value Reference Range Interpretation Comments Sodium (test code = 2951-2) 138 meq/L 136-145 Lab Interpretation (test code = Normal 15428-4) [facility] [id number] 13:04:35 Test Item Value Reference Range Interpretation Comments Potassium (test code = 2823-3) 3.8 meq/L 3.6-5.5 Lab Interpretation (test code = Normal 24806-3) [facility]Glucose[facility] [id number] 13:04:35 Test Item Value Reference Range Interpretation Comments Glucose (test code = 2345-7) 117 mg/dL 70-110 H Lab Interpretation (test code = Abnormal 23418-3) [facility] Na[facility]Stat [id number] 13:04:35 Test Item Value Reference Range Interpretation Comments Sodium (test code = 2951-2) 138 meq/L 136-145 Lab Interpretation (test code = Normal 26070-0) [facility]Potassium-Stat [id number] 13:04:35 Test Item Value Reference Range Interpretation Comments Potassium (test code = 2823-3) 3.8 meq/L 3.6-5.5 Lab Interpretation (test code = Normal 49846-3) [facility]Glucose[facility]Stat [id number] 13:04:35 Test Item Value Reference Range Interpretation Comments Glucose (test code = 2345-7) 117 mg/dL 70-110 H Lab Interpretation (test code = Abnormal 69643-8) [facility] Na-Stat [id number] 13:04:35 Test Item Value Reference Range Interpretation Comments Sodium (test code = 2951-2) 138 meq/L 136-145 Lab Interpretation (test code = Normal 34475-0) [facility]Potassium-Stat [id number] 13:04:35 Test Item Value Reference Range Interpretation Comments Potassium (test code = 2823-3) 3.8 meq/L 3.6-5.5 Lab Interpretation (test code = Normal 08502-0) [facility]GLUCOSE-STAT [id number] 13:04:35 Test Item Value Reference Range Interpretation Comments GLUCOSE RANDOM (BEAKER) (test code 117 mg/dL 70-110 H = 652) SODIUM NA-STAT [id number] 13:04:35 Test Item Value Reference Range Interpretation Comments SODIUM (BEAKER) (test code = 381) 138 meq/L 136-145 POTASSIUM-STAT [id number] 13:04:35 Test Item Value Reference Range Interpretation Comments POTASSIUM (BEAKER) (test code = 3.8 meq/L 3.6-5.5 379) CALCIUM, [id number] 11:58:46 Test Item Value Reference Range Interpretation Comments CALCIUM IONIZED (BEAKER) (test 0.78 mmol/L 1.12-1.27 LL code = 698) PH, BLOOD (BEAKER) (test code = 7.35 1810) SODIUM NA-STAT [id number] 11:51:08 Test Item Value Reference Range Interpretation Comments SODIUM (BEAKER) (test code = 381) 134 meq/L 136-145 L HGB/HCT (H&H) - STAT [id number] 11:51:02 Test Item Value Reference Range Interpretation Comments HEMOGLOBIN (BEAKER) (test code = 9.2 GM/DL 12.0-15.0 L 410) HEMATOCRIT (BEAKER) (test code = 27.0 % 36.0-45.0 L 411) BLOOD GAS, [id number] 11:50:55 Test Item Value Reference Range Interpretation [...] (BEAKER) (test code = 1819) 100.0 GLUCOSE-STAT [id number] 11:50:09 Test Item Value Reference Range Interpretation Comments GLUCOSE RANDOM (BEAKER) (test code 137 mg/dL 70-110 H = 652) POTASSIUM-STAT [id number] 11:50:09 Test Item Value Reference Range Interpretation Comments POTASSIUM (BEAKER) (test code = 3.8 meq/L 3.6-5.5 379) Hemoglobin and qdoqshiuae6756-11-21 11:06:21 Test Item Value Reference Range Interpretation Comments Hemoglobin (test code = 12.0 See_Comment [Au tomated message] 718-7) The system VNG generated this result transmitted ref erence range: 12.0 - 1 5.0 GM/DL. The refe rence range was not u sed to interpret this result as normal/abnor mal. Hematocrit (test code = 35.0 % 36.0-45.0 L 4544-3) Lab Interpretation (test Abnormal code = 14070-3) [facility]Hemoglobin and [id number] 11:06:21 Test Item Value Reference Range Interpretation Comments Hemoglobin (test code = 12.0 See_Comment [Au tomated message] 718-7) The system VNG generated this result transmitted ref erence range: 12.0 - 1 5.0 GM/DL. The refe rence range was not u sed to interpret this result as normal/abnor mal. Hematocrit (test code = 35.0 % 36.0-45.0 L 4544-3) Lab Interpretation (test Abnormal code = 39648-7) [facility]Hemoglobin and [id number] 11:06:21 Test Item Value Reference Range Interpretation Comments Hemoglobin (test code = 12.0 See_Comment [Au tomated message] 718-7) The system VNG generated this result transmitted ref erence range: 12.0 - 1 5.0 GM/DL. The refe rence range was not u sed to interpret this result as normal/abnor mal. Hematocrit (test code = 35.0 % 36.0-45.0 L 4544-3) Lab Interpretation (test Abnormal code = 23352-6) [facility]HEMOGLOBIN AND [id number] 11:06:21 Test Item Value Reference Range Interpretation Comments HEMOGLOBIN (BEAKER) (test code = 12.0 GM/DL 12.0-15.0 410) HEMATOCRIT (BEAKER) (test code = 35.0 % 36.0-45.0 L 411) CALCIUM, [id number] 10:54:34 Test Item Value Reference Range Interpretation Comments CALCIUM IONIZED (BEAKER) (test 1.01 mmol/L 1.12-1.27 L code = 698) PH, BLOOD (BEAKER) (test code = 7.38 1810) BLOOD GAS, [id number] 10:53:20 Test Item Value Reference Range Interpretation [...] (BEAKER) (test code = 1819) 93.0 POTASSIUM-STAT [id number] 10:53:09 Test Item Value Reference Range Interpretation Comments POTASSIUM (BEAKER) (test code = 3.8 meq/L 3.6-5.5 379) HGB/HCT (H&H) - STAT [id number] 10:53:09 Test Item Value Reference Range Interpretation Comments HEMOGLOBIN (BEAKER) (test code = 12.1 GM/DL 12.0-15.0 410) HEMATOCRIT (BEAKER) (test code = 36.0 % 36.0-45.0 411) GLUCOSE-STAT [id number] 10:53:08 Test Item Value Reference Range Interpretation Comments GLUCOSE RANDOM (BEAKER) (test code 114 mg/dL 70-110 H = 652) SODIUM NA-STAT [id number] 10:53:08 Test Item Value Reference Range Interpretation Comments SODIUM (BEAKER) (test code = 381) 137 meq/L 136-145 CALCIUM, [id number] 10:10:35 Test Item Value Reference Range Interpretation Comments CALCIUM IONIZED (BEAKER) (test 0.98 mmol/L 1.12-1.27 L code = 698) PH, BLOOD (BEAKER) (test code = 7.44 1810) BLOOD GAS, [id number] 10:10:25 Test Item Value Reference Range Interpretation [...] (test code = 1819) 80.0 BASIC METABOLIC [id number] 06:39:31 Test Item Value Reference Range Interpretation [...] 8.4-10.2 (test code = 697) EGFR (BEAKER) 96 Interpretatio n of eGFR (test code [...] not appl icable for dialysis patien ts Call Center Director ID - KATIE [id number] 06:39:31 Test Item Value Reference Range Interpretation Comments MAGNESIUM (NASH) (test code = 2.1 mg/dL 1.6-2.6 627) Call Center Director ID - KATIE [id number] 06:39:31 Test Item Value Reference Range Interpretation Comments PHOSPHORUS (DAVONAKER) (test code = 3.3 mg/dL 2.3-4.7 604) Call Center Director ID - KATIE MPOCT-GLUCOSE [id number] 06:07:24 Test Item Value Reference Range Interpretation Comments POC-GLUCOSE METER 79 mg/dL 70-110 : TESTED A T [facility] 6720 (NASH) (test code = GRANT ENGEL [place], 1538) [address]: Call Center Director/Techni rosa ID = [id number] for KERRI LIM SARS-CoV2/RT-PCR (Asymptomatic ONLY)2022-02-19 03:04:11 Test Item Value Reference Interpretation Comments Range SARS-COV2/RT-PCR Negative Negative The SARS-Co V-2 (test code = target nucleic 77544-6) acids are not detected in thi s [...] om SARS-CoV-2 in a nasopharyngeal swab specimen colle lucila from individual s suspected of COVID-19 [...] revoked sooner. Fact Sheet for Healthcare Providers: https://www.iFit/Documents/Xp ert%20Xpress%20SAR S%20CoV-2/Fact%20S heets/302-3802%20S ARS-COV-2%20HEALTH CARE%20PROVIDERS%2 0FACT%20SHEET.pdf Fact Sheet for Healthcare Patients: https://www.iFit/Documents/Xp ert%20Xpress%20SAR S%20CoV-2/Fact%20S heets/302-3801%20S ARS-COV-2%20PATIEN T%20FACT%20SHEET.p df Lab Interpretation Normal (test code = 94232-6) [facility] ([facility] ONLY)2022-02-19 03:04:11 Test Item Value Reference Interpretation Comments Range SARS-COV2/RT-PCR Negative Negative The SARS-Co V-2 (test code = target nucleic 72457-9) acids are not detected in thi s [...] om SARS-CoV-2 in a [facility]oph[facility] s suspected of COVID-19 by [...] revoked sooner. Fact Sheet for Healthcare Providers: https://www.iFit/Documents/Xp ert%20Xpress%20SAR S%20CoV-2/Fact%20S heets/302-3802%20S ARS-COV-2%20HEALTH CARE%20PROVIDERS%2 0FACT%20SHEET.pdf Fact Sheet for Healthcare Patients: https://www.iFit/Documents/Xp ert%20Xpress%20SAR S%20CoV-2/Fact%20S heets/302-3801%20S ARS-COV-2%20PATIEN T%20FACT%20SHEET.p df Lab Interpretation Normal (test code = 33014-9) [facility] (Asymptomatic ONLY)2022-02-19 03:04:11 Test Item Value Reference Interpretation Comments Range SARS-COV2/RT-PCR Negative Negative The SARS-Co V-2 (test code = target nucleic 82812-0) acids are not detected in thi s [...] revoked sooner. Fact Sheet for Healthcare Providers: https://www.iFit/Documents/Xp ert%20Xpress%20SAR S%20CoV-2/Fact%20S heets/302-3802%20S ARS-COV-2%20HEALTH CARE%20PROVIDERS%2 0FACT%20SHEET.pdf Fact Sheet for Healthcare Patients: https://www.iFit/Documents/Xp ert%20Xpress%20SAR S%20CoV-2/Fact%20S heets/302-3801%20S ARS-COV-2%20PATIEN T%20FACT%20SHEET.p df Lab Interpretation Normal (test code = 75602-9) [facility] ([facility])2022-02-19 03:04:11 Test Item Value Reference Range Interpretation Comments SARS-COV2/RT-PCR Negative Negative The SARS-Co V-2 target (test code = nucleic acids a re not 4438557) detected in thi s specimen. Negative result [...] revoked sooner. Fact Sheet for Healthcare Providers: https://www.HyperWeek m/Documents/Xpert%20Xpress%20SARS%20CoV-2/Fact%20Sheets/302-3802%54VGHA-ETX-4%20 HEALTHCARE%20PROVIDERS%20FACT%20SHEET.pdf Fact Sheet for Healthcare Patients: https://www.jobsite123.StarGen/Documents/Xpert%20Xp ress%20SARS%20CoV-2/Fact%20Sheets/302-3801%49SACC-HSX-5%20PATIENT%20FACT%20SHEET .pdf(CELLAVISION MANUAL DIFF)2022-02-18 07:46:20 Test Item Value [...] CONCENTRATION Adequate (CELLAVISION)(BEAKER) (test code = 3438) Call Center Director ID - Gus Lara comments: Slide comments:CBC W/PLT COUNT & AUTO [id number] 07:46:09 Test Item Value Reference Range Interpretation [...] WBC 0-0 (BEAKER) (test code = 413) [id number] 05:06:35 Test Item Value Reference Range Interpretation Comments PHOSPHORUS (BEAKER) (test code = 3.1 mg/dL 2.3-4.7 604) Call Center Director ID - MARILIN WBASIC METABOLIC [id number] 05:06:34 Test Item Value Reference Range Interpretation [...] not appl icable for dialysis patien ts Call Center Director ID - MARILIN [id number] 05:06:34 Test Item Value Reference Range Interpretation Comments MAGNESIUM (BEAKER) (test code = 2.1 mg/dL 1.6-2.6 627) Call Center Director ID Nia MARILIN W2D Echo W/Doppler(CW/PW/Color)2022-02-17 16:05:45Ejection FractionSLEH ECHO [facility] W/Doppler(CW/PW/Color)2022-02-17 16:05:45Ejection FractionSLEH [facility]CHO [facility] W/Doppler(CW/PW/Color) 2022-02-17 16:05:45Ejection FractionSLEH ECHO HEARTLAB [facility](CELLAVISION MANUAL DIFF)2022-02-17 07:14:35 Test Item Value Reference [...] CONCENTRATION Adequate (CELLAVISION)(BEAKER) (test code = 3438) Call Center Director ID - Keyanna Graham comments: Slide comments:CBC W/PLT COUNT & AUTO [id number] 07:14:34 Test Item Value Reference Range Interpretation [...] WBC 0-0 (BEAKER) (test code = 413) [id number] 05:58:15 Test Item Value Reference Range Interpretation Comments PHOSPHORUS (BEAKER) (test code = 3.1 mg/dL 2.3-4.7 604) Call Center Director ID - PIAYA LBASIC METABOLIC [id number] 05:58:14 Test Item Value Reference Range Interpretation [...] not appl icable for dialysis patien ts Call Center Director ID - SARAH [id number] 05:58:14 Test Item Value Reference Range Interpretation Comments MAGNESIUM (BEAKER) (test code = 2.2 mg/dL 1.6-2.6 627) Call Center Director ID Nia SMITH L(CELLAVISION MANUAL DIFF)2022-02-16 10:13:46 Test Item Value [...] 966) ARTIFACT (CELLAVISION)(BEAKER) Present (test code = 3432) PLATELET CONCENTRATION Adequate (CELLAVISION)(BEAKER) (test code = 3438) Call Center Director ID - Viridiana OverholtUser comments: Slide comments:CBC W/PLT COUNT & AUTO [id number] 10:13:45 Test Item Value Reference Range Interpretation [...] = 413) RAD, CHEST, 1 VIEW, NON [id number] 07:19:00Reason for exam:->Chest pain; aortic knob pseudoaneurysmShould this be performed at the bedside?->Yes [facility] : 1975 Sex: FFINAL REPORT INDICATION: Chest [...] clinical setting, viral infection. Signed: Della Harden MDReport Verified Date/Time: 02/16/2022 07:19:54 Reading Location: [address] Reading Room [id number] 07:08:24 Test Item Value Reference Range Interpretation Comments PHOSPHORUS (BEAKER) (test code = 3.1 mg/dL 2.3-4.7 604) Call Center Director ID - PIAYA LCOMPREHENSIVE METABOLIC [id number] 07:08:23 Test Item Value Reference Range Interpretation [...] = 697) AST (SGOT) 33 U/L 5-34 (BEAKER) (test code = 353) ALT (SGPT) 21 U/L 6-55 (BEAKER) (test code = 347) EGFR (BEAKER) 87 Interpretatio n of eGFR (test code = 1092) mL/min/1.[address] age Description sq m Result G1 Niharika l or high >=90 G2 Mildly decreased 60-89 G3a Mildl y to moderately 45-5 9 G3b Moderately to s everely 30-44 G4 Severl y decreased 15-29 G5 Kidney failure <15Reported eGF R is based on the CKD-EPI 2021 equation that d oes not use a race coefficientEsti mated GFR is not as accur ate as Creatinine Michaelle cleary in predicting glom erular filtration rate . Estimated GFR is not appl icable for dialysis patien ts Call Center Director ID - SARAH [id number] 07:08:23 Test Item Value Reference Range Interpretation Comments MAGNESIUM (NASH) (test code = 2.2 mg/dL 1.6-2.6 627) Call Center Director ID - SARAH LPOCT-GLUCOSE [id number] 06:46:24 Test Item Value Reference Range Interpretation Comments POC-GLUCOSE METER 85 mg/dL 70-110 : TESTED A T [facility] 6720 (Sharet[place]) (test code = [facility] ENGEL [place], 1538) [address]: Call Center Director/Techni rosa ID = [id number] for Simon Dawkins HCG, QUANTITATIVE, [id number] 06:20:00 Test Item Value Reference Range Interpretation Comments GONADOTROPIN, CHORIONIC (HCG) QUANT < mIU/mL 0-10 (GruvIt) (test code = 649) Non- Females: <10 mIU/mL Females: Gestation Age Reference Range(mIU/mL) 0.2-1 Week 5-50 1-2 Weeks 50-500 2-3 Weeks 100-5,000 3-4 Weeks 500-10,000 4-5 Weeks 1,000-50,000 5-6 Weeks 10,000-100,000 6-8 Weeks 15,000- 200,000 2-3 Months 10,000-100,000 Call Center Director ID - SARAH LHIGH SENSITIVITY TROPONIN [id number] 06:19:43 Test Item Value Reference Range Interpretation Comments HIGH SENSITIVITY 5 pg/ml See_Comment [Automated message] TROPONIN I (test code = The system which 6353737) generated this result transmitted ref erence range: <=17. Th e reference range was not used to interpr et this result as normal/abnormal . Call Center Director ID - SARAH LThe HEALTH AND FITNESS PROFESSOR STAT High Sensitivity Troponin-I results should be used in conjunction with other diagnostic information such as ECG, clinical observations and information, and patient symptoms to aid in the diagnosis of PR.[id number] 06:13:24 Test Item Value Reference Range Interpretation Comments PARTIAL THROMBOPLASTIN TIME 30.3 seconds 22.5-36.0 (NASH) (test code = 760) [id number] 06:13:18 Test Item Value Reference Range Interpretation Comments FIBRINOGEN LEVEL (BEAKER) (test 331 mg/dl 225-434 code = 658) PROTHROMBIN TIME/[id number] 06:12:40 Test Item Value Reference Range Interpretation Comments PROTIME (BEAKER) 14.2 seconds 11.9-14.2 (test code = 759) INR (BEAKER) (test 1.16 See_Comment [Automat ed message] code = 370) The system VNG generated this result transmitted ref erence range: <=5.90. The reference range was not used to int erpret this result as normal/abnormal . RECOMMENDED COUMADIN/WARFARIN INR THERAPY RANGESSTANDARD DOSE: 2.0 - 3.0 Includes: PROPHYLAXIS for venous thrombosis, systemic embolization; TREATMENT for venous thrombosis and/or pulmonary embolus.HIGH RISK: Target INR is 2.5-3.5 for patients with mechanical heart valves.
--- NOTE | 2022-05-11 16:48 | RAD REPORT ---
EXAM DESCRIPTION: Inez Single View05/11/2022 4:32 pm CLINICAL HISTORY: Chest pain COMPARISON: February 2022 FINDINGS: The aortic arch/proximal descending thoracic aorta appears a little bit more prominent th an on the prior exam Heart is normal size. Lungs appear clear of acute infiltrate IMPRESSION: The aortic arch/proximal descending thoracic aorta appears more prominent than on the p rior exam. This may be a normal postoperative change. Other considerations include recurrent pseudo a neurysm and dissection. CT chest with contrast is recommended
[2022-05-11 18:14] LABS: Absolute Lymphocytes (CBC) 4.2 K/uL (0.7-4.9); Hematocrit 43.9 % (36.0-45.0); Lymphocytes % 41.2 % (15.3-44.8); MCV 90.3 fL (80-100); MPV 7.1 fL (7.6-11.3); RBC Red Blood Cell Count 4.86 M/uL (3.86-4.86)
[2022-05-11 18:16] LABS: Protime INR 0.95
[2022-05-11 18:28] LABS: Potassium 4.2 mmol/L (3.5-5.1); Troponin High Sensitivity 7.2 pg/mL (<58.9)
[2022-05-11] MEDS ORDERED: FENTANYL CITR 100 MCG/2 ML ONE (19:56)
--- NOTE | 2022-05-11 20:10 | RAD REPORT ---
EXAM DESCRIPTION: CT - Chest For Pe Angio - 05/11/2022 7:59 pm CLINICAL HISTORY: chest pain COMPARISON: Chest For Pe Angio dated 02/16/2022; THORAX W CONTRAST dated 08/01/2014; MRA AORTIC ARCH d ated 08/02/2014 TECHNIQUE: Dynamically enhanced axial 3 mm thick images of the chest were obtained during administra tion of <100> mL Isovue 370 IV contrast. Coronal and oblique reconstruction images were generated and reviewed. Exam utilizes a protocol for optimal evaluation of pulmonary arterial tree. Maximum intensity projections 3D imaging was utilized All CT scans are performed using dose optimization technique as appropriate and may include automated exposure control or mA/KV adjustment according to patient size. FINDINGS: Chest Wall: No suspicious thyroid nodules or pathologic lymphadenopathy. Lungs: Mild scarring in the lingula and left lower lobe. No suspicious pulmonary nodules. No edema or evidence of pneumonia. Pleura: No significant effusions or pneumothorax. Mediastinum/maria dolores: No pathologic lymphadenopathy. Pulmonary arteries/Aorta: No filling defect identified. 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 No recurrent aneurysm identified. Heart: No significant pericardial effusion. Normal heart size. Upper abdomen: No acute abnormality. Bones: No acute abnormality. IMPRESSION: Negative for pulmonary embolism. No acute findings within the chest. Interval aortic arc h aneurysm repair. No evidence of aneurysm recurrence.
[2022-05-11] MEDS ORDERED: CLINDAMYCIN 600MG/D5W 50 ML IV ONE (20:33)
[2022-05-11] MEDS ORDERED: LIDOCAINE HCL JELLY 2% 6 ML SYRINGE TOP ONE (20:33)
[2022-05-11] MEDS ORDERED: NA CHLORIDE 0.9% 500 ML ONE (20:34)
--- NOTE | 2022-05-11 21:18 | ER ---
Nurse's Notes [facility] Name: Jen Joyce Age: 47 yrs Sex: Female : 1975 Arrival Date: 05/11/2022 Time: 15:52 Bed 18 Private MD: Diagnosis: Cellulitis of chest wall;Encounter for removal of sutures Presentation: 05/11 16:03 Chief complaint: Patient states: i HAD HEART SURGERY IN FEBRUARY AND HAVENT FOLLOWED UP [facility] SINCE AND MY INCISIONS FROM SURGERY WHERE I NEVER HAD THE SUTURES REMOVED THE SKIN HAS GROWN OVER MY SUTURES AND I HAVE SOME PUSS COMING OUT. YESTERDAY I STARTED HAVING SOB. Coronavirus screen: Vaccine status: Patient reports receiving the 2nd dose of the covid vaccine. Client denies travel out of the [place] in the last 14 days. Ebola Screen: Patient negative for fever greater than or equal to 101.5 degrees Fahrenheit, and additional compatible Ebola Virus Disease symptoms Patient denies exposure to infectious person. Patient denies travel to an Ebola-affected area in the 21 days before illness onset. Initial Sepsis Screen: Does the patient meet any 2 criteria? No. Patient's initial sepsis screen is negative. Does the patient have a suspected source of infection? No. Patient's initial sepsis screen is negative. Risk Assessment: Do you want to hurt yourself or someone else? Patient reports no desire to harm self or others. 16:03 Method Of Arrival: Ambulatory [facility] 16:03 Acuity: TAMELA 3 5 Triage Assessment: 16:06 General: Appears in no apparent distress. uncomfortable, slender, Behavior is calm, [facility] cooperative, appropriate for age. Pain: Complains of pain in chest. 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 - Social history:: Smoking status: Patient/guardian denies using tobacco, the patient reports quitting approximately 1 years ago. Screenin:53 [facility] ED Fall Risk Assessment (Adult) History of falling in the last 3 months, lg3 including since admission No falls in past 3 months (0 pts). Abuse screen: Denies threats or abuse. Denies injuries from another. Nutritional screening: No deficits noted. Tuberculosis screening: No symptoms or risk factors identified. Assessment: 19:53 General: Appears in no apparent distress. uncomfortable, Behavior is calm, cooperative. lg3 Pain: Complains of pain in left lateral posterior chest and left lateral anterior chest. Neuro: No deficits noted. Hernandez Agitation-Sedation Scale (RASS): 0 - Alert and Calm Level of Consciousness is awake, alert, obeys commands, Oriented to person, place, time, situation. Cardiovascular: No deficits noted. Capillary refill < 3 seconds Clubbing of nail beds is absent JVD is absent Patient's skin is warm and dry. Respiratory: No deficits noted. Airway is patent Trachea midline Respiratory effort is even, unlabored, Respiratory pattern is regular, symmetrical. GI: No deficits noted. No signs and/or symptoms were reported involving the gastrointestinal system. Abdomen is flat, non-distended. : No deficits noted. No signs and/or symptoms were reported regarding the genitourinary system. EENT: No deficits noted. No signs and/or symptoms were reported regarding the EENT system. Derm: Wound noted left lateral anterior chest Reports pain. Musculoskeletal: No deficits noted. Circulation, motion, and sensation intact. Range of motion: intact in all extremities. Vital Signs: 16:03 BP 147 / 92; Pulse 72; Resp 18; Temp 98.4; Pulse Ox 100% ; Weight 52.6 kg; Height 4 ft. jh5 8 in. (142.24 cm); Pain 8/10; 16:03 Body Mass Index 26.00 (52.60 kg, 142.24 cm) [facility] ED Course: 15:52 Patient arrived in ED. as 16:00 Abisai Christina PA is PHCP. cp 16:00 López Drummond MD is Attending Physician. cp 16:06 Triage completed. jh5 16:06 Arm band placed on right wrist. jh5 16:32 Chest Single View In Process Unspecified. EDMS 18:02 Inserted saline lock: 22 gauge in left antecubital area, using aseptic technique. Blood ap3 collected. 18:03 Basic Metabolic Panel Sent. ap3 18:03 CBC with Diff Sent. ap3 18:03 NT PRO-BNP Sent. ap3 18:03 PT-INR Sent. ap3 18:03 Troponin HS Sent. ap3 19:53 Patient has correct armband on for positive identification. Placed in gown. Bed in low lg3 position. Call light in reach. Side rails up X 1. Client placed on continuous cardiac and pulse oximetry monitoring. NIBP monitoring applied. night clerk on. Door closed. Noise minimized. Warm blanket given. 20:01 CT Chest For PE Angio: r/o aortic dissection In Process Unspecified. EDMS 21:31 No provider procedures requiring assistance completed. IV discontinued, intact, as6 bleeding controlled, No redness/swelling at site. Pressure dressing applied. Administered Medications: 20:25 Drug: fentaNYL (PF) 25 mcg Route: IVP; Site: left antecubital; lg3 21:31 Follow up: Response: No adverse reaction; Pain is decreased as6 20:32 Drug: Clindamycin 600 mg Route: IVPB; Infused Over: 30 mins; Site: left antecubital; lg3 20:32 Drug: NS 0.9% 500 ml Route: IV; Rate: bolus; Site: left antecubital; lg3 21:03 CANCELLED (Physician Discretion): fentaNYL (PF) 25 mcg IVP once bb Medication: 21:32 VIS not applicable for this client. as6 Outcome: 21:17 Discharge ordered by MD. cp 21:31 Discharged to home ambulatory. as6 21:31 Condition: stable 21:31 Discharge instructions given to patient, Instructed on discharge instructions, follow up and referral plans. medication usage, Demonstrated understanding of instructions, follow-up care, medications, Prescriptions given X 2. 21:32 Patient left the ED. as6 Signatures: Dispatcher [employer] EDLanny Calderon Corey, PA PA cp Prokisch, Amanda RN RN ap3 Nehal Day RN RN lg3 Salena Jensen RN RN 5 Colt Read RN RN as6 Jessi Concepcion RN bb
--- NOTE | 2022-05-11 21:18 | EDPHYS ---
Physician Documentation [facility] Name: Jen Joyce Age: 47 yrs Sex: Female : 1975 Arrival Date: 05/11/2022 Time: 15:52 Bed 18 Private MD: ED Physician López Drummond HPI: 05/11 17:00 This 47 yrs old Female presents to ER via Ambulatory with complaints of Incisional cp Drainage, Suture Recheck, Fever, Shortness Of Breath. 17:00 The patient or guardian reports chest pain that is located primarily in the left lateral chest. 17:00 Onset: since thoracic surgery in February 2022 by physician at [facility] for coronary artery aneurysm repair. 17:00 Associated signs and symptoms: Pertinent positives: shortness of breath since cp yesterday. The chest pain is described as aching. Patient reports she has not had any f/u care since aneurysm repair in February 2022 due lack of insurance and transportation. Patient reports sutures that attached "chest drain" were not removed and she reports pain to suture area. 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 - Social history:: Smoking status: Patient/guardian denies using tobacco, the patient reports quitting approximately 1 years ago. ROS: 17:05 Constitutional: Positive for body aches, chills, Negative for fever, poor PO intake. cp 17:05 Eyes: Negative for injury, pain, redness, and discharge. cp 17:05 ENT: Negative for drainage from ear(s), ear pain, sore throat, difficulty swallowing, difficulty handling secretions. 17:05 Cardiovascular: Positive for chest pain. 17:05 Respiratory: Positive for shortness of breath, Negative for cough, wheezing. 17:05 Abdomen/GI: Negative for abdominal pain, vomiting, diarrhea, constipation. 17:05 : Negative for urinary symptoms. 17:05 Neuro: Negative for altered mental status, dizziness, headache, weakness. 17:05 All other systems are negative. Exam: 17:10 Constitutional: The patient appears in no acute distress, alert, awake, cp non-diaphoretic, non-toxic, well developed, well nourished, uncomfortable. 17:10 Head/Face: Normocephalic, atraumatic. cp 17:10 Eyes: Periorbital structures: appear normal, Conjunctiva: normal, no exudate, no injection, Sclera: no appreciated abnormality, Lids and lashes: appear normal, bilaterally. 17:10 ENT: External ear(s): are unremarkable, Nose: is normal, Mouth: Lips: moist, Oral mucosa: moist, Posterior pharynx: is normal, airway is patent, no erythema, no exudate. 17:10 Chest/axilla: Inspection: multiple surgical scars appear well healed, visible single suture protruding lateral chest wall with tenderness to palpation, mild purulent drainage expressed from suture opening. 17:10 Cardiovascular: Rate: normal, Rhythm: regular, Edema: is not appreciated, JVD: is not appreciated. 17:10 Respiratory: the patient does not display signs of respiratory distress, Respirations: normal, no use of accessory muscles, no retractions, labored breathing, is not present, Breath sounds: are clear throughout, no decreased breath sounds, no stridor, no wheezing. 17:10 Abdomen/GI: Inspection: abdomen appears normal, Palpation: abdomen is soft and non-tender, in all quadrants. 17:10 Neuro: Orientation: to person, place \\T\\ time. Mentation: is normal, Motor: moves all fours, strength is normal, Sensation: is normal. 20:43 ECG was reviewed by the Attending Physician. cp Vital Signs: 16:03 BP 147 / 92; Pulse 72; Resp 18; Temp 98.4; Pulse Ox 100% ; Weight 52.6 kg; Height 4 ft. 5 8 in. (142.24 cm); Pain 8/10; 16:03 Body Mass Index 26.00 (52.60 kg, 142.24 cm) [facility] Procedures: 21:15 Suture/Staple removal: Removed 1 sutures, from left lateral chest wall, site appears cp reddened, Patient tolerated well. MDM: 16:11 Patient medically screened. cp 17:00 Differential diagnosis: abnormal EKG, acute myocardial infarction, chest wall pain, cp pericarditis, pleurisy, pneumonia, pneumothorax, sepsis, abscess, cellulitis. 21:15 Data reviewed: vital signs, nurses notes, lab test result(s), EKG, radiologic studies, cp CT scan, plain films. 21:15 Consideration of Admission/Observation Escalation of care including cp admission/observation considered. I considered the following discharge prescriptions or medication management in the emergency department Medications were administered in the Emergency Department. See MAR. Independent interpretation of the following test(s) in the Emergency Department X-Ray: My interpretation is chest xray negative for focal pneumonia. Counseling: I had a detailed discussion with the patient and/or guardian regarding: the historical points, exam findings, and any diagnostic results supporting the discharge/admit diagnosis, lab results, radiology results, to return to the emergency department if symptoms worsen or persist or if there are any questions or concerns that arise at home. Response to treatment: the patient's symptoms have markedly improved after treatment, and as a result, I will discharge patient. Special discussion: Based on the patient's history, exam, and Dx evaluation, there is no indication for emergent intervention or inpatient Tx. It is understood by the patient/guardian that if the Sx's persist or worsen they need to return immediately for re-evaluation. 05/11 16:05 Order name: Basic Metabolic Panel; Complete Time: 19:00 cp 05/11 19:00 Interpretation: Normal except: GFR 88. cp 05/11 16:05 Order name: CBC with Diff; Complete Time: 19:00 cp 05/11 19:40 Interpretation: Normal except: RDW 15.6; MPV 7.1. cp 05/11 16:05 Order name: NT PRO-BNP; Complete Time: 19:00 cp 05/11 16:05 Order name: PT-INR; Complete Time: 19:00 cp 05/11 16:05 Order name: Troponin HS; Complete Time: 19:00 cp 05/11 16:05 Order name: EKG; Complete Time: 16:06 cp 05/11 16:05 Order name: Cardiac monitoring; Complete Time: 20:25 cp 05/11 16:32 Order name: Chest Single View; Complete Time: 17:23 EDMS 05/11 19:42 Order name: CT Chest For PE Angio: r/o aortic dissection; Complete Time: 20:12 cp 05/11 16:05 Order name: EKG - Nurse/Tech; Complete Time: 20:58 cp 05/11 16:05 Order name: IV Saline Lock; Complete Time: 18:02 cp 05/11 16:05 Order name: Labs collected and sent; Complete Time: 18:03 cp 05/11 16:05 Order name: O2 Per Protocol; Complete Time: 19:32 cp 05/11 16:05 Order name: O2 Sat Monitoring; Complete Time: 19:32 cp EC:43 Rate is 54 beats/min. Rhythm is regular. DC interval is normal. QRS interval is normal. cp QT interval is normal. T waves are Inverted in leads aVR, V2, V3. Interpreted by me. Reviewed by me. Administered Medications: 20:25 Drug: fentaNYL (PF) 25 mcg Route: IVP; Site: left antecubital; lg3 21:31 Follow up: Response: No adverse reaction; Pain is decreased as6 20:32 Drug: Clindamycin 600 mg Route: IVPB; Infused Over: 30 mins; Site: left antecubital; lg3 20:32 Drug: NS 0.9% 500 ml Route: IV; Rate: bolus; Site: left antecubital; lg3 21:03 CANCELLED (Physician Discretion): fentaNYL (PF) 25 mcg IVP once bb Disposition: 05/12 07:09 Co-signature as Attending Physician, López Drummond MD I reviewed the patient's care rn provided by the Advanced Practice Provider and agree with the diagnosis and treatment plan. Disposition Summary: 05/11/22 21:17 Discharge Ordered Location: Home cp Problem: new cp Symptoms: have improved cp Condition: Stable cp Diagnosis - Cellulitis of chest wall cp - Encounter for removal of sutures cp Followup: cp - With: Private Physician - When: 1 - 2 days - Reason: Wound Recheck Discharge Instructions: - Discharge Summary Sheet cp - Cellulitis, Adult cp - Suture Removal, Care After cp Forms: - Medication Reconciliation Form cp - Thank You Letter cp - Antibiotic Education cp - Prescription Opioid Use cp Prescriptions: - Clindamycin HCl 300 mg Oral Capsule - take 1 capsule by ORAL route every 6 hours for 10 days; 40 capsule; Refills: 0, cp Product Selection Permitted - Ibuprofen 600 mg Oral Tablet - take 1 tablet by ORAL route every 8 hours As needed take with food; 30 tablet; cp Refills: 0, Product Selection Permitted Signatures: Dispatcher [employer] EDLópez Ramey MD MD rn Page, Corey, PA PA cp Gibson, Lacie, RN RN lg3 Salena Jensen RN RN jh5 Jessi Concepcion RN bb Colt Read RN as6 Corrections: (The following items were deleted from the chart) 05/11 16:30 16:06 Chest Single View+[email or web address] ordered. EDMS EDMS 21:03 20:38 fentaNYL (PF) 25 mcg IVP once ordered. patricia ferguson
[2022-05-11 22:36] VITALS: BP 104/58; TEMP 98.7; O2SAT 98
--- NOTE | 2022-05-12 16:55 | EKG ---
Test Date: 2022-05-11 Test Time: 20:36:43 Supervisor Ore Dressing: MINDY MEASUREMENT RESULTS: Intervals: Rate: 54 AK: 146 QRSD: 100 QT: 428 QTc: 405 [place]: P: 66 AK: 146 QRS: 55 T: 66 INTERPRETIVE STATEMENTS: Sinus bradycardia Incomplete right bundle branch block T wave abnormality, consider anterior ischemia Abnormal ECG Compared to ECG 02/15/2022 20:01:29 Incomplete right bundle-branch block now present T-wave abnormality now present Possible ischemia now present Sinus rhythm no longer present ST (T wave) deviation no longer present Electronically Signed On 05-12-22 16:53:29 DESIGN TECH by Michael Harman
== END 2022-05-11 21:32 | disposition home or self-care (01) ==
LOC: ER 15:48
DX: L03.313 Cellulitis of chest wall (principal); Z48.02 Encounter for removal of sutures
CPT/HCPCS: 36415; 71045; 71275; 80048; 83880; 84484; 85025; 85610; 93005; 96374; 96375; 99284; J3010; J7040; Q9967

== ENCOUNTER 2022-09-17 20:44 | Emergency (ER) | payer SELFPAY ==
--- OUTSIDE RECORDS SUMMARY | 2022-09-17 20:50 | XMS REPORT | Continuity of Care Document ---
:1975 Author Organization [facility] t Address [address] [facility] [address] [place] [address] Care Team Providers Name Role Phone Shabnam AVILA, Otoniel Dan Attending Clinician Preston FIELD CROPS HARVEST MACHINE OPERATOR, Steven Man Attending Clinician [phone] STEVEN JOHNSTON Attending Clinician Unavailable SANTIAGO VILLARREAL Attending Clinician Unavailable Payal AVILA, Christoph Bonilla Attending Clinician [phone] Santiago Villarreal MD Attending Clinician Kendell Forde MD Attending Clinician [phone] Ralph Maya MD Attending Clinician Babatunde AVILA, Daniella Vásquez Attending Clinician KENDELL FORDE Admitting Clinician Unavailable Payers Payer Name Policy Type Policy Number Effective Date Expiration Date S ource Problems Condition Condition Condition Status Onset Resolution Last Treating Co mments Source Name Details Category Date Date Treatment Clinician Date Hypertherm Hypertherm Disease Active 2021-[address] [facility] Hypertherm Hypertherm Disease Active 2021-[address] [facility] Smoker Smoker Disease Active 2021-[address] [facility] Asthma Asthma Disease Active 2021-[address] [facility] [address] [facility] 02/20:Dist 02/20:Dist Disease Recurre 2021-[address] [facility] [facility] 04[facility]18 [facility] k[facility] replace replace 00:00: Medical across across 00 Center subclavian subclavian & prox & prox desc desc thoracic thoracic ao ao [id number] mm mm Gelweave Gelweave graft.(Moo graft.(Moo n) [...] Date Stop Date Source Natural son Asthma [facility] [place] Social History Social Habit Start Date Stop Date Quantity Comments Source History SDOH [facility] Alcohol Comment Medical C enter History SDOH [facility] Alcohol Std Drinks Medica l Center History SDOH [facility] Alcohol Binge Medical Sd ter History SDOH [facility] Transport Non-Med Medical Center Alcohol intake 2022-05-27 2022-05-[address] [facility] 00:[facility]00 non-drinker Medical Cente r (finding) Cigarettes smoked 2022-02-16 2022-02-[address] [facility] current (pack per 00:00:00 00:00:00 Medical Center day) - Reported Cigarette 2022-02-16 2022-02-[address] [facility] pack-years 00:00:00 00:00:00 Medical Center Tobacco use and 2022-02-16 2022-02-[address] [facility] exposure 00:00[facility]00 00:00:00 non-user Medical Center History SDOH 2022-02-16 2022-02-[address] [facility] Alcohol Frequency 00:00:00 00:00:00 Medical Center History SDOH 2022-02-16 2022-02-[address] [facility] Transport Med 00:00:00 00:00:[address] History SDOH 2022-02-16 2022-02-[address] [facility] Housing Unable to 00:00:00 00:00:00 Medical Center Pay History [facility] 2022-02-16 2022-02-[address] [facility] Housing Places 00:00:00 00:00:00 Medical Ce nter Lived History [facility] 2022-02-16 2022-02-[address] [facility] Housing Homeless 00:00:00 00:00:00 Medical Center Last Year History of tobacco 2010-02-16 2022-01-[address] [facility] use 00:00:00 00:00:00 Medical Center Sex Assigned At [address] [facility] 00:00:00 00:00:00 Medical Center Smoking Status Start Date Stop Date Source Ex-smoker 2022-02-16 00:00:00 2022-02-16 00:00:00 [facility] Medications Ordered Filled Start Stop Current Ordering Indication Dosage Frequency Signature Comments Components Source Medication Medication Date Date Medication? Clinician (SIG) Name Name [facility] Yes pain 500mg Take [address] en 2-15 mg [facility] (TYLENOL) 10:47: mouth Medical 500 MG 30 every 6 Center tablet (six) hours as [...] 00:00: 00:00 mouth. Medical tablet 00 :00 Center cefpodoxime 2021- No 200mg Take [address] [facility] (VANTIN) 8-25 11-15 mg [facility] 200 MG 00:00: 00:00 mouth. Medical tablet 00 :00 [place] cefpodoxime 2021- No 200mg Take [address] (VANTIN) 8-25 11-15 mg [facility] 200 MG 00:00: 00:00 mouth. Medical tablet 00 :00 [place] cefpodoxime 2021- No 200mg Take [address] (VANTIN) 8-25 11-15 mg by [facility] 200 MG 00:00: 00:00 mouth. Medical tablet 00 :00 [place] Vital Signs Vital Name Observation Time Observation Value Comments Source HEIGHT 2022-05-27 10:45:00 142.2 cm WEIGHT 2022-05-27 10:45:00 54.432 kg HEIGHT 2022-05-27 10:45:00 142.2 cm WEIGHT 2022-05-27 10:45:00 54.432 kg WEIGHT 2022-02-20 04:00:00 60.5 kg WEIGHT [...] WEIGHT 2022-02-16 05:00:00 53.6 kg Systolic blood 2022-05-27 10:45:00 129 mm[Hg] [facility] Diastolic blood 2022-05-27 10:45:00 60 mm[Hg] [facility] pressure [facility] Heart rate 2022-05-27 10:45:00 51 /min [facility] Body height 2022-05-27 10:45:00 142.2 cm [facility] Body weight 2022-05-27 10:45:00 54.432 kg [facility] BMI 2022-05-27 10:45:00 26.90 kg/m2 [facility] Oxygen saturation in 2022-05-27 10:45:00 100 /min [facility] Arterial blood by Medical Ce nter Pulse oximetry Systolic blood 2022-02-24 12:16:00 119 mm[Hg] [facility] Diastolic blood 2022-02-24 12:16:00 75 mm[Hg] [facility] Heart rate 2022-02-24 12:16:00 57 /min [facility] Oxygen saturation in 2022-02-24 12:16:00 95 /min [facility] Arterial blood by Medical Ce nter Pulse oximetry Body temperature 2022-02-24 12:16:00 37 Barbara [facility] Respiratory rate 2022-02-24 12:16:00 18 /min [facility] Body weight 2022-02-20 04:00:00 60.5 kg [facility] BMI 2022-02-20 04:00:00 29.90 kg/m2 [facility] Body height 2022-02-16 05:00:00 142.2 cm [facility] Procedures Procedure Date / Time Performing Clinician Source Performed POCT-GLUCOSE METER 2022-02-24 07:39:00 Santiago Villarreal [facility] XR CHEST 1 VIEW PORTABLE 2022-02-24 07:12:00 Jessica Dao [facility] / BEDSIDE Medical Center MAGNESIUM 2022-02-24 05:30:00 Jessica Dao [facility] PROTHROMBIN TIME/INR 2022-02-24 05:30:00 Jessica Dao [facility] POCT-GLUCOSE METER 2022-02-23 20:49:00 Santiago Villarreal [facility] POCT-GLUCOSE METER 2022-02-23 16:46:00 Santiago Villarreal [facility] POCT-GLUCOSE METER 2022-02-23 12:04:00 [facility]SE METER 2022-02-23 08:27:00 Santiago Villarreal [facility] XR CHEST 1 VIEW PORTABLE 2022-02-23 07:54:00 Jessica Dao [facility] MAGNESIUM 2022-02-23 05:22:00 Jessica Dao [facility] PROTHROMBIN TIME/INR 2022-02-23 05:22:00 Jessica Dao [facility] POCT-GLUCOSE METER 2022-02-22 21:00:00 Teo [facility] POCT-GLUCOSE METER 2022-02-22 16:56:00 Teo [facility] POCT-GLUCOSE METER 2022-02-22 11:19:00 Santiago Villarreal [facility] XR CHEST 1 VIEW PORTABLE 2022-02-22 10:54:00 Basia Langford [facility] POCT-GLUCOSE METER 2022-02-22 07:59:00 Santiago Villarreal [facility] BASIC METABOLIC PANEL 2022-02-22 07:06:00 Jessica Dao [facility] MAGNESIUM 2022-02-22 07:06:00 Jessica Dao [facility] PHOSPHORUS 2022-02-22 07:06:00 Jessica Dao [facility] XR CHEST 1 VIEW PORTABLE 2022-02-22 06:36:00 Jessica Dao [facility] POCT-GLUCOSE METER 2022-02-21 23:14:00 Santiago Villarreal [facility] POCT-GLUCOSE METER 2022-02-21 16:50:00 Teo [facility] POCT-GLUCOSE METER 2022-02-21 12:45:00 Santiago Villarrealorio [facility] POCT-GLUCOSE METER 2022-02-21 11:34:00 [facility] PO[facility]-GLUCOSE METER 2022-02-21 07:59:00 [facility] POCT-GLUCOSE METER 2022-02-21 07:34:00 [facility] 1 VIEW PORTABLE 2022-02-21 06:41:00 Jessica Dao [facility] CBC (HEMOGRAM ONLY) 2022-02-21 04:22:00 Jessica Dao [facility] BASIC METABOLIC PANEL 2022-02-21 04:22:00 Jessica Dao [facility] MAGNESIUM 2022-02-21 04:22:00 Jessica Dao [facility] PHOSPHORUS 2022-02-21 04:22:00 Jessica Dao [facility] APTT 2022-02-21 04:22:00 Jessica Dao [facility] PROTHROMBIN TIME/INR 2022-02-21 04:22:00 Jessica Dao [facility] PREPARE RBC 2022-02-20 23:54:00 Kendell Forde [facility] PREPARE PLASMA 2022-02-20 23:54:00 Otoniel Haque [facility] XR CHEST 1 VIEW PORTABLE 2022-02-20 03:24:00 Jessica Dao [facility] CBC (HEMOGRAM ONLY) 2022-02-20 02:34:00 Jessica Dao [facility] BASIC METABOLIC PANEL 2022-02-20 02:34:00 Jessica Dao [facility] MAGNESIUM 2022-02-20 02:34:00 Jessica Dao [facility] PHOSPHORUS 2022-02-20 02:34:00 Jessica Dao [facility] APTT 2022-02-20 02:34:00 Feliberto, Jessica Nahomy [facility] PROTHROMBIN TIME/INR 2022-02-20 02:34:00 Feliberto Jessica Corea [facility] OXYGEN SATURATION, 2022-02-20 02:34:00 Feliberto Jessica Corea [facility] BLOOD GAS, ARTERIAL 2022-02-19 15:00:00 Jessica Dao [facility] PROTHROMBIN TIME/INR 2022-02-19 15:00:00 Feliberto Jessica Corea [facility] APTT 2022-02-19 15:00:00 Feliberto Jessica Corea [facility] OXYGEN SATURATION, 2022-02-19 15:00:00 Jessica aDo [facility] BASIC METABOLIC PANEL 2022-02-19 15:00:00 Jessica Dao Nahomy [facility] CBC W/PLT COUNT & AUTO 2022-02-19 15:00:[address] [facility] MAGNESIUM 2022-02-19 15:00:00 Jessica Dao [facility] PHOSPHORUS 2022-02-19 15:00:00 Jessica Dao [facility] CBC W/PLT COUNT & AUTO 2022-02-19 15:00:[address] [facility] XR CHEST 1 VIEW PORTABLE 2022-02-19 14:38:00 Jessica Dao [facility] PLATELET COUNT 2022-02-19 12:43:15 [facility] 2022-02-19 12:40:07 [facility] (ABG,NA,K,H&H,GLUCOSE) Medical C enter CALCIUM, IONIZED 2022-02-19 12:40:07 [facility] PROTHROMBIN TIME/INR 2022-02-19 12:40:07 [facility] APTT 2022-02-19 12:40:07 [facility] FIBRINOGEN 2022-02-19 12:40:07 Maya, [facility] BLOOD GAS, ARTERIAL 2022-02-19 12:40:07 Maya, [facility] SODIUM NA-STAT LAB 2022-02-19 12:40:07 Maya, [facility] POTASSIUM-STAT LAB 2022-02-19 12:40:07 Maya, [facility] GLUCOSE-STAT LAB 2022-02-19 12:40:07 Maya, [facility] HGB/HCT (H&H) - STAT LAB 2022-02-19 12:40:07 Francesco, [facility] POCT-ACT 2022-02-19 12:39:00 Teo [facility] TRANSFUSE PLASMA 2022-02-19 12:17:00 [facility] LEUKO-REDUCED 2022-02-19 12:03:00 Francesco [facility] RED BLOOD CELLS [facility] POCT-ACT 2022-02-19 11:42:00 Santiago Villarreal [facility] RRL CRITICAL LABS 2022-02-19 11:41:26 [facility] es (ABG,NA,K,H&H,GLUCOSE) Medical C enter CALCIUM, IONIZED 2022-02-19 11:41:26 [facility] BLOOD GAS, ARTERIAL 2022-02-19 11:41:26 Francesco [facility] SODIUM NA-STAT LAB 2022-02-19 11:41:26 Francesco, [facility] POTASSIUM-STAT LAB 2022-02-19 11:41:26 Maya, [facility] GLUCOSE-STAT LAB 2022-02-19 11:41:26 [facility] HGB/HCT (H&H) - STAT LAB 2022-02-19 11:41:26 [facility] POCT-ACT 2022-02-19 11:17:00 Teo [facility] RRL CRITICAL LABS 2022-02-19 10:46:40 [facility] (ABG,NA,K,H&H,GLUCOSE) Medical C enter CALCIUM, IONIZED 2022-02-19 10:46:40 [facility] BLOOD GAS, ARTERIAL 2022-02-19 10:46:40 Maya, [facility] SODIUM NA-STAT LAB 2022-02-19 10:46:40 Maya, [facility] POTASSIUM-STAT LAB 2022-02-19 10:46:40 Maya, [facility] GLUCOSE-STAT LAB 2022-02-19 10:46:40 [facility] (H&H) - STAT LAB 2022-02-19 10:46:40 [facility] PO[facility]-ACT 2022-02-19 10:30:00 Santiago Villarreal [facility] BLOOD GAS, ARTERIAL 2022-02-19 09:46:53 Francesco, [facility] CALCIUM, IONIZED 2022-02-19 09:46:53 [facility] HEMOGLOBIN AND HEMATOCRIT 2022-02-19 09:46:00 Francesco [facility] THORACOTOMY 2022-02-19 07:34:00 HaqueOtoniel [facility] REPAIR, ANEURYSM, AORTA, 2022-02-19 07:34:00 HaqueOtoniel [facility] THORACIC, DESCENDING Medical Sd ter POCT-GLUCOSE METER 2022-02-19 05:55:00 Santiago Villarreal [facility] BASIC METABOLIC PANEL 2022-02-19 05:05:00 Nott, Vera Davenport [facility] MAGNESIUM 2022-02-19 05:05:00 Nott, Vera [facility] PHOSPHORUS 2022-02-19 05:05:00 Nott, [facility] SARS-COV2/RT-PCR ([facility] & 2022-02-19 01:57:00 Jessica Dao [facility] REF LABS) [facility] PREPARE RBC 2022-02-18 21:10:00 Amarilys-Smart, [facility] ABORH, MANUAL 2022-02-18 20:55:00 ReginoAlanna laughlin [facility] TYPE AND SCREEN, 2022-02-18 20:08:00 [facility] CBC W/PLT COUNT & AUTO 2022-02-18 04:33:00 Nott, Vera Estela e [facility] BASIC METABOLIC PANEL 2022-02-18 04:33:00 Nott, Vera Davenport [facility] MAGNESIUM 2022-02-18 04:33:00 Nott, Vera [facility] PHOSPHORUS 2022-02-18 04:33:00 Nott, Vera [facility] CBC W/PLT COUNT & AUTO 2022-02-18 04:33:00 Nott, Vera Estela e [facility] (CELLAVISION MANUAL DIFF) 2022-02-18 04:33:00 Nott, Vera burns [facility] 2D ECHO W/ DOPPLER 2022-02-17 14:43:26 [facility] (CW[facility]PW[facility]) [facility] 2D ECHO W/ DOPPLER 2022-02-17 14:43:26 [facility] (CW/PW/COLOR) [facility] CBC W/PLT COUNT & AUTO 2022-02-17 04:30:00 Nott, Vera Estela e [facility] BASIC METABOLIC PANEL 2022-02-17 04:30:00 Nott, Vera Davenport [facility] MAGNESIUM 2022-02-17 04:30:00 Nott, Vera Davenport [facility] PHOSPHORUS 2022-02-17 04:30:00 Nott, Vera Davenport [facility] CBC W/PLT COUNT & AUTO 2022-02-17 04:30:00 Nott, Vera machado [facility] (CELLAVISION MANUAL DIFF) 2022-02-17 04:30:00 Nott, Vera burns [facility] CTA CHEST,ABDOMEN & 2022-02-16 10:48:[address] [facility] PELVIS - FOR DISSECTION [facility] POCT-GLUCOSE METER 2022-02-16 06:34:00 Santiago Villarreal [facility] COMPREHENSIVE METABOLIC 2022-02-16 05:45:00 [facility] PANEL [facility] MAGNESIUM 2022-02-16 05:45:00 Oc, [facility] PHOSPHORUS 2022-02-16 05:45:00 Oc, [facility] PROTHROMBIN TIME/INR 2022-02-16 05:45:00 Oc, [facility] APTT 2022-02-16 05:45:00 Oc [facility] FIBRINOGEN 2022-02-16 05:45:00 Oc, [facility] CBC W/PLT COUNT & AUTO 2022-02-16 05:45:[address] [facility] HCG, QUANTITATIVE, 2022-02-16 05:45:00 Oc, [facility] HIGH SENSITIVITY TROPONIN 2022-02-16 05:45:00 OcKylee chase [facility] I [facility] CBC W/PLT COUNT & AUTO 2022-02-16 05:45:00 Oc [facility] S [facility] (CELLAVISION MANUAL DIFF) 2022-02-16 05:45:00 Oc [facility] XR CHEST 1 VIEW PORTABLE 2022-02-16 05:37:00 Oc [facility] / BEDSIDE [facility] VASCULAR DIAGRAM -SCAN 2022-02-16 00:00:00 ProviderArlene [facility] Plan of Care Planned Activity Planned Date Details Comments Source Future Scheduled 2023-05-27 Tobacco Cessation [facility] Test 00:00:00 Counseling and Medical Rickye r Screening (12+) [code = Tobacco Cessation [...] Cessation Counseling and Screening (12+)] Future Scheduled 2022-12-[address] [facility] Test 00:00:00 (Season Ended) [code = [facility] INFLUENZA VACCINE (Season Ended)] Future Scheduled 2022-04-[address] [facility] Test 00:00:00 (12+) [code = Medical Center DEPRESSION SCREENING (12+)] Future Scheduled 2022-04-[address] [facility] Test 00:00:00 (12+) [code = Medical Center DEPRESSION SCREENING (12+)] Future Scheduled 2022-04-[address] [facility] Test 00:00:00 (12+) [code = Medical Center DEPRESSION SCREENING (12+)] Future Scheduled 2022-04-[address] [facility] Test 00:00:00 (12+) [code = Medical Center DEPRESSION SCREENING (12+)] Future Scheduled 2021-12-11 [...] [facility] Test 00:00:00 [code = 83634544] Medical Ce nter Future Scheduled 2019 Lipid panel (procedure) [facility] Test 00:00:00 [code = 65603925] Medical Ce nter Future Scheduled 2019 Lipid panel (procedure) [facility] Test 00:00:00 [code = 69605854] Medical Ce nter Future Scheduled 2019 Lipid panel (procedure) [facility] Test 00:00:00 [code = 19357088] Medical Ce nter Future Scheduled 1995 Screening for malignant [facility] Test 00:00:00 neoplasm of cervix Medical C enter (procedure) [code = 743896666] Future Scheduled 1995 Screening for malignant [facility] Test 00:00:00 neoplasm of cervix Medical C enter (procedure) [code = 193934069] Future Scheduled 1995 Screening for malignant [facility] Test 00:00:00 neoplasm of cervix Medical C enter (procedure) [code = 613529610] Future Scheduled 1995 Screening for malignant [facility] Test 00:00:00 neoplasm of cervix Medical C enter (procedure) [code = 200550477] Future Scheduled 1993 DTAP/TDAP/TD VACCINES [facility] [...] [facility] Test 00:00:00 [code = CT Colonography [facility] (combo)] Future Scheduled 1974 Screening for malignant [facility] Test 00:00:00 neoplasm of colon Medical Ce nter (procedure) [code = 541729289] Future Scheduled 1974 Screening for malignant [facility] Test 00:00:00 neoplasm of colon Medical Ce nter (procedure) [code = 180525779] Future Scheduled 1974 Screening for malignant [facility] Test 00:00:00 neoplasm of colon Medical Ce nter (procedure) [code = 129573057] Future Scheduled 1974 Screening for malignant [facility] Test 00:00:00 neoplasm of colon Medical Ce nter (procedure) [code = 805930907] Future Scheduled 1975 Sigmoidoscopy [code = [facility] S[facility]oidoscopy] Medical Cente r Future Scheduled 1974 CT Colonography (combo) [facility] Test 00:00:00 [code = CT Colonography [facility] (combo)] Future Scheduled 1974 Screening for malignant [facility] Test 00:00:00 neoplasm of colon Medical Ce nter (procedure) [code = 895752812] Future Scheduled 1974 Screening for malignant [facility] Test 00:00:00 neoplasm of colon Medical Ce nter (procedure) [code = 639874441] Future Scheduled 1974 Screening for malignant [facility] Test 00:00:00 neoplasm of colon Medical Ce nter (procedure) [code = 436224849] Future Scheduled 1974 Screening for malignant [facility] Test 00:00:00 neoplasm of colon Medical Ce nter (procedure) [code = 015545948] Future Scheduled 1975 Sigmoidoscopy [code = [facility] Sigmoidoscopy] Medical Cente r Future Scheduled 1974 CT Colonography (combo) [facility] Test 00:00:00 [code = CT Colonography [facility] (combo)] Future Scheduled 1974 Screening for malignant [facility] Test 00:00:00 neoplasm of colon Medical Ce nter (procedure) [code = 181307331] Future Scheduled 1974 Screening for malignant [facility] Test 00:00:00 neoplasm of colon Medical Ce nter (procedure) [code = 160634977] Future Scheduled 1974 Screening for malignant [facility] Test 00:00:00 neoplasm of colon Medical Ce nter (procedure) [code = 895536916] Future Scheduled 1974 Screening for malignant [facility] Test 00:00:00 neoplasm of colon Medical Ce nter (procedure) [code = 354394312] Future Scheduled 1975 Sigmoidoscopy [code = [facility] 00:[facility] Sigmoidoscopy] Medical Rickye r Future Scheduled 1974 CT Colonography (combo) [facility] Test 00:00:00 [code = CT Colonography [facility] (combo)] Future Scheduled 1974 Screening for malignant [facility] Test 00:00:00 neoplasm of colon Medical Ce nter (procedure) [code = 511459801] Future Scheduled 1974 Screening for malignant [facility] Test 00:00:00 neoplasm of colon Medical Ce nter (procedure) [code = 037986413] Future Scheduled 1974 Screening for malignant [facility] Test 00:00:00 neoplasm of colon Medical Ce nter (procedure) [code = 434379931] Future Scheduled 1974 Screening for malignant [facility] Test 00:00:00 neoplasm of colon Medical Ce nter (procedure) [code = 276784449] Future Scheduled 1975 Sigmoidoscopy [code [facility] 00:[facility] Sigmoidoscopy] Medical Rickye r Encounters Start End Encounter Admission Attending Care Care Encounter Source Date/Time Date/Time Type Type Clinicians Facility Department ID 2022-05-27 2022-05-[address] [facility] [id number] 11:00:00 11:30:00 Visit Steven Johnston [facility] 2022-05-27 2022-05-27 Outpatient FIDELIA JOHNSTON [facility] [id number] [facility] 10:06:55 10:06:55 STEVEN 2022-02-16 2022-02-24 Inpatient ER SANTIAGO [facility]AL [facility] [id number] [facility] 04:46:00 12:46:00 2022-02-16 2022-02-24 [facility] Christoph Moe [facility] [id number] 04:46:00 12:46:00 Encounter Santiago Villarreal [facility] 2022-02-16 2022-02-24 [facility] Christoph Moe [facility] [id number] 04:46:00 12:46:00 [facility] 2022-02-19 Anesthesia [facility] [id number] 07:52:00 14:28:00 [facility] 2022-02-19 An[facility]hesia [facility] [id number] 07:52:00 14:28:00 [facility] 2022-02-19 2022-02-[address] [facility] [id number] [id number] 07:30:00 13:00:00 [facility] 2022-02-19 2022-02-[address] [facility] [id number] 07:30:00 13:00:00 [facility] 2022-02-16 2022-02-16 Outpatient [facility] [id number] [facility] 04:46:00 23:59:00 Mckenna e 2022-02-16 2022-02-16 Travel [facility] [id number] [facility] 00:00:00 [facility] 2022-02-16 2022-02-16 Travel [facility] [id number] [facility] 00:[facility]:00 [facility] Results Test Description Test Time Test Comments Results Result Sour e Comments RAD, CHEST, 1 2022-02-10 Reason for VIEW, NON DEPT 5 exam:->Post op chest 07:55:00 tubes, atelectasis, effusion, EMELY R[facility] - pneumothorax, MEDICAL CENTERName: tamponadeShould this KEVYN WATTS MAY be performed at the : 1975 [...] Harden Verified Date/Time: 02/24/2022 07:55:43 Reading Location: [address] Reading Room -Glucose meter 2022-02-24 07:54:21 Test Item Value Reference Range Interpretation Comme nts POC-Glucose Meter (test code = 87 mg/dL 70-110 : TESTED AT [facility] [address] [facility] 1538) [facility] HOSPITAL, [facility] 30: Carpet Journeyman/Techni rosa ID = [id number] for EVA RED Lab Interpretation (test code = Normal 11318-5) [facility]-Glucose [id number] 07:54:21 Test Item Value Reference Range Interpretation Comments POC-Glucose Meter (test 87 mg/dL 70-110 : TE STED AT [facility] code = 1538) [address] [place] [address], [facility] 30: Carpet Journeyman/Techni rosa ID = [id number] for EVA RED A Lab Interpretation (test Normal code = 35980-7) [facility]-Glucose [id number] 07:54:21 Test Item Value Reference Range Interpretation Comments POC-Glucose Meter (test 87 mg/dL 70-110 : TE STED AT [facility] code = 1538) [address] [place] [address], 770 30: Carpet Journeyman/Techni rosa ID = [id number] for EVA RED Lab Interpretation (test Normal code = 49093-4) [facility] [id number] 07:54:21 Test Item Value Reference Range Interpretation Comments POC-Glucose Meter (test 87 mg/dL 70-110 : TE STED AT [facility] code = 1538) 67[address] [facility], 770 30: Carpet Journeyman/Techni rosa ID = [id number] for EVA RED A Lab Interpretation (test Normal code = 82159-6) [facility] [id number] 07:54:21 Test Item Value Reference Range Interpretation Comments POC-GLUCOSE METER 87 mg/dL 70-110 : TESTED A T [facility] 6720 (BEAKER) (test code = [facility], 1538) [address]: Carpet Journeyman/Techni rosa ID = [id number] for AMIE RODRIGUEZ [id number] 06:50:48 Test Item Value Reference Range Interpretation Comments MAGNESIUM (BEAKER) (test code = 2.1 mg/dL 1.6-2.6 627) Carpet Journeyman ID - KATIE MPROTHROMBIN TIME/[id number] 06:29:19 Test Item Value Reference Range Interpretation Comments PROTIME (BEAKER) 14.0 seconds 11.9-14.2 (test code = 759) INR (BEAKER) (test 1.10 See_Comment [Automat ed message] code = 370) The system [employer] generated this result transmitted ref erence range: <=5.90. The reference range was not used to int erpret this result as normal/abnormal . RECOMMENDED COUMADIN/WARFARIN INR THERAPY RANGESSTANDARD DOSE: 2.0 - 3.0 Includes: PROPHYLAXIS for venous thrombosis, systemic embolization; TREATMENT for venous thrombosis and/or pulmonary embolus.HIGH RISK: Target INR is 2.5-3.5 for patients with mechanical heart valves.POCT-GLUCOSE [id number] 21:01:30 Test Item Value Reference Range Interpretation Comments POC-GLUCOSE METER 101 mg/dL 70-110 : [facility] ([facility] (test code = [facility], 1538) [address]: Carpet Journeyman/Techni rosa ID = [id number] for LI MARISSA DALE POCT-GLUCOSE [id number] 16:58:48 Test Item Value Reference Range Interpretation Comments POC-GLUCOSE METER 83 mg/dL 70-110 : TESTED A T [facility] 6720 ([facility]) (test code = [facility], 1538) [address]: Carpet Journeyman/Techni rosa ID = [id number] for WILL IAMS, TYNEKA POCT-GLUCOSE [id number] 12:15:59 Test Item Value Reference Range Interpretation Comments POC-GLUCOSE METER 75 mg/dL 70-110 : TESTED A T [facility] 6720 [facility] (test code = [facility], 1538) 41477: Carpet Journeyman/Techni rosa ID = [id number] for WILL IAMS, TYNEKA POCT-GLUCOSE [id number] 08:39:03 Test Item Value Reference Range Interpretation Comments POC-GLUCOSE METER 91 mg/dL 70-110 : [facility] 67[facility] ([facility]) (test code = [facility], 1538) [address]: Carpet Journeyman/Techni rosa ID = [id number] for WILL IAMS, TYNEKA RAD, CHEST, 1 VIEW, NON [id number] 08:05:00Reason for exam:->Post op chest tubes, atelectasis, effusion, pneumothorax, tamponadeShould this be performed at the bedside?->Yes [facility] : 1975 Sex: FFINAL REPORT RAD, CHEST, 1 VIEW, NON DEPT INDICATION: Post op chest tubes, atelectasis,effusion, pneumothorax, tamponade COMPARISON: Prior day's exam FINDINGS: Portable frontal view of the chest. IMPRESSION: Support Lines: [place]-Peter tip overlies the pulmonary outflow tract. Left chest tubes. Lungs and pleura: Left basilar airspace opacities. Unchanged mild interstitial thickening throughout the left lung. No significant pneumothorax. Heart and mediastinum: Stable contours. Additional findings: None. Signed: Della Harden Verified Date/Time: 02/23/2022 08:05:48 Reading Location: [address] Reading Room [id number] 06:35:32 Test Item Value Reference Range Interpretation Comments MAGNESIUM (BEAKER) (test code = 2.1 mg/dL 1.6-2.6 627) Carpet Journeyman ID - KATIE MPROTHROMBIN TIME/[id number] 05:50:17 Test Item Value Reference Range Interpretation Comments PROTIME (BEAKER) 14.4 seconds 11.9-14.2 H (test code = 759) INR (BEAKER) (test 1.19 See_Comment [Automat ed message] code = 370) The system [employer] generated this result transmitted ref erence range: <=5.90. The reference range was not used to int erpret this result as normal/abnormal . RECOMMENDED COUMADIN/WARFARIN INR THERAPY RANGESSTANDARD DOSE: 2.0 - 3.0 Includes: PROPHYLAXIS for venous thrombosis, systemic embolization; TREATMENT for venous thrombosis and/or pulmonary embolus.HIGH RISK: Target INR is 2.5-3.5 for patients with mechanical heart valves.POCT-GLUCOSE [id number] 21:11:53 Test Item Value Reference Range Interpretation Comments POC-GLUCOSE METER 102 mg/dL 70-110 : TESTED A T [facility] 6720 ([facility]) (test code = [facility], 1538) [address]: Carpet Journeyman/Techni rosa ID = [id number] for RAYNE PACHECO POCT-GLUCOSE [id number] 17:07:55 Test Item Value Reference Range Interpretation Comments POC-GLUCOSE METER 93 mg/dL 70-110 : TESTED A T [facility] 6720 ([facility]) (test code = [employer] Capital GroupMARGARET Dan [facility], 1538) [address]79: Carpet Journeyman/Techni rosa ID = [id number] for Nima Medina RAD, CHEST, 1 VIEW, NON [id number] 13:31:00Reason for exam:->s/p chest tube pulledShould this be performed at the bedside?->Yes [facility] : 1975 Sex: FFINAL REPORT [...] pneumothorax post chest tube removal. Signed: Sina Gunterday [facility] Verified Date/Time: 02/22/2022 13:31:08 POCT-GLUCOSE [id number] 11:30:41 Test Item Value Reference Range Interpretation Comments POC-GLUCOSE METER 107 mg/dL 70-110 : TESTED A T [facility] 6720 (DAVONAKER) (test code = GRANT Dan [facility], 1538) [address]: Carpet Journeyman/Techni rosa ID = [id number] for Nima Rodriguez RAD, CHEST, 1 VIEW, NON [id number] 10:11:00Reason for exam:->Post op chest tubes, atelectasis, effusion, pneumothorax, tamponadeShould this be performed at the bedside?->Yes [facility] 1975 Sex: FFINAL REPORT Chest one view. Clinical history: Post op chest tubes, atelectasis, effusion, pneumothorax, tamponade Comparison: 02/21/2022 Discussion: A frontal chest is provided. Cardiomediastinal contours are unchanged. Lines and tubes are in stable position. Bibasilar opacities are uncha nged. No definite new consolidation. No pneumothorax. No large effusion. Signed: Jacklyn Mayo Verified Date/Time: 02/22/2022 10:11:10 Reading Location: [address] Ortho Consult Reading Room [id number] 08:36:51 Test Item Value Reference Range Interpretation Comments PHOSPHORUS (BEAKER) (test code = 2.0 mg/dL 2.3-4.7 L 604) Carpet Journeyman ID - PIAYA LBASIC METABOLIC [id number] 08:36:50 Test Item Value Reference Range Interpretation [...] not appl icable for dialysis patien ts Carpet Journeyman ID - SARAH [id number] 08:36:50 Test Item Value Reference Range Interpretation Comments MAGNESIUM (BEAKER) (test code = 2.1 mg/dL 1.6-2.6 627) Carpet Journeyman ID - SARAH LPOCT-GLUCOSE [id number] 08:11:51 Test Item Value Reference Range Interpretation Comments POC-GLUCOSE METER 75 mg/dL 70-110 : TESTED A T [facility] 6720 (BEAKER) (test code = [facility], 1538) [address]: Carpet Journeyman/Techni rosa ID = [id number] for Nima Medina POCT-GLUCOSE [id number] 23:25:43 Test Item Value Reference Range Interpretation Comments POC-GLUCOSE METER 84 mg/dL 70-110 : TESTED A T [facility] 6720 (BEAKER) (test code = [facility], 1538) [address]: Carpet Journeyman/Techni rosa ID = [id number] for MONISHA SERRANO CHISHAILA POCT-GLUCOSE [id number] 17:02:28 Test Item Value Reference Range Interpretation Comments POC-GLUCOSE METER 123 mg/dL 70-110 H : TESTED A T [facility] 6720 (BEAKER) (test code = [facility], 1538) [address]: Carpet Journeyman/Techni rosa ID = [id number] for Nima Rodriguez POCT-GLUCOSE [id number] 12:56:08 Test Item Value Reference Range Interpretation Comments POC-GLUCOSE METER 180 mg/dL 70-110 H : TESTED A T [facility] 6720 (BEAKER) (test code = [facility] Dan [place], 1538) [address]: Carpet Journeyman/Techni rosa ID = [id number] for Amber Prieto POCT-GLUCOSE [id number] 11:46:10 Test Item Value Reference Range Interpretation Comments POC-GLUCOSE METER 208 mg/dL 70-110 H : TESTED A T [facility] 6720 (BEAKER) (test code = [facility], 1538) [address]: Carpet Journeyman/Techni rosa ID = [id number] for Do Nima moore RAD, CHEST, 1 VIEW, NON [id number] 08:55:00Reason for exam:->Post op chest tubes, atelectasis, effusion, pneumothorax, tamponadeShould this be performed at the bedside?->Yes [facility] : 1975 Sex: FFINAL REPORT RAD, CHEST, 1 VIEW, NON DEPT INDICATION: Post op chest tubes, atelectasis,effusion, pneumothorax, tamponade COMPARISON: Prior day's exam FINDINGS: Portable frontal view of the chest. IMPRESSION: Support Lines: [place] tip overlies the pulmonary outflow tract. Left chest tubes. Lungs and pleura: Left basilar airspace opacities. Moderate interstitial thickening throughout the left lung. No significant pneumothorax. Heart and mediastinum: Stable contours. Additional findings: None. Signed: Della Harden MDReport Verified Date/Time: 02/21/2022 08:55:39 Reading Location: [address] Reading Room POCT-GLUCOSE [id number] 08:11:17 Test Item Value Reference Range Interpretation Comments POC-GLUCOSE METER 89 mg/dL 70-110 : TESTED A T [facility] 6720 (BEAKER) (test code = [facility], 1538) [address]: Carpet Journeyman/Techni rosa ID = [id number] for Joseph Medinan POCT-GLUCOSE [id number] 07:46:24 Test Item Value Reference Range Interpretation Comments POC-GLUCOSE METER 68 mg/dL 70-110 L : TESTED A T [facility] 6720 (BEAKER) (test code = [facility], 1538) [address]256: Carpet Journeyman/Techni rosa ID = [id number] for Joseph Medinan BASIC METABOLIC [id number] 06:22:29 Test Item Value Reference Range Interpretation [...] not appl icable for dialysis patien ts Carpet Journeyman ID - [id number] 05:31:55 Test Item Value Reference Range Interpretation Comments MAGNESIUM (BEAKER) (test code = 1.8 mg/dL 1.6-2.6 627) Carpet Journeyman ID - [id number] 05:31:55 Test Item Value Reference Range Interpretation Comments PHOSPHORUS (BEAKER) (test code = 1.8 mg/dL 2.3-4.7 L 604) Carpet Journeyman ID - [id number] 05:17:07 Test Item Value Reference Range Interpretation Comments PARTIAL THROMBOPLASTIN TIME 32.1 seconds 22.5-36.0 (BEAKER) (test code = 760) PROTHROMBIN TIME/[id number] 05:16:21 Test Item Value Reference Range Interpretation Comments PROTIME (BEAKER) 16.0 seconds 11.9-14.2 H (test code = 759) INR (BEAKER) (test 1.36 See_Comment [Automat ed message] code = 370) The system [employer] generated this result transmitted ref erence range: [...] 0-0 (BEAKER) (test code = 413) Prepare [id number] 23:54:00 Test Item Value Reference Range Interpretation Comments CROSSMATCH (test code = COMPATIBLE 2263) Unit ABO (test code = O Pos 0541822) UNIT NUMBER (test code = [id number] 934-0) Status (test code = RETURNED FROM ISSUE 15100621) Blood Bank Product (test RED BLOOD CELLS code = 2263) PRODUCT CODE (test code = G6432L96 933-2) [facility] [id number] 23:54:00 Test Item Value Reference Range Interpretation Comments Unit ABO (test code = O Neg 4716899) UNIT NUMBER (test code = [id number] 934-0) Status (test code = RETURNED FROM ISSUE 15100621) Blood Bank Product (test FFP code = 2263) PRODUCT CODE (test code = I1602N01 933-2) [facility] [id number] 23:54:00 Test Item Value Reference Range Interpretation Comments CROSSMATCH (test code = COMPATIBLE 4) Unit ABO (test code = O Pos 1613697) UNIT NUMBER (test code = [id number] 934-0) Status (test code = RETURNED FROM ISSUE 15100621) Blood Bank Product (test RED BLOOD CELLS code = 2263) PRODUCT CODE (test code = C1349T67 933-2) [facility] [id number] 23:54:00 Test Item Value Reference Range Interpretation Comments Unit ABO (test code = O Neg 0027927) UNIT NUMBER (test code = [id number] 934-0) Status (test code = RETURNED FROM ISSUE 15100621) Blood Bank Product (test FFP code = 2263) PRODUCT CODE (test code = O3808Y48 933-2) [facility] [id number] 23:54:00 Test Item Value Reference Range Interpretation Comments CROSSMATCH (test code = COMPATIBLE 2264) Unit ABO (test code = O Pos 3590466) UNIT NUMBER (test code = [id number] 934-0) Status (test code = RETURNED FROM ISSUE 15100621) Blood Bank Product (test RED BLOOD CELLS code = 2263) PRODUCT CODE (test code = A9385Z22 933-2) [facility] [id number] 23:54:00 Test Item Value Reference Range Interpretation Comments Unit ABO (test code = O Neg 2082901) UNIT NUMBER (test code = [id number] 934-0) Status (test code = RETURNED FROM ISSUE 15100621) Blood Bank Product (test FFP code = 2263) PRODUCT CODE (test code = O0081C60 933-2) [facility] [id number] 23:54:00 Test Item Value Reference Range Interpretation Comments CROSSMATCH (test code = COMPATIBLE 2264) Unit ABO (test code = O Pos 4007135) UNIT NUMBER (test code = [id number] 934-0) Status (test code = RETURNED FROM ISSUE 3014619) Blood Bank Product (test RED BLOOD CELLS code = 2263) PRODUCT CODE (test code = F6707I64 933-2) [facility] [id number] 23:54:00 Test Item Value Reference Range Interpretation Comments Unit ABO (test code = O Neg 3176562) UNIT NUMBER (test code = [id number] 934-0) Status (test code = RETURNED FROM ISSUE 1767240) Blood Bank Product (test FFP code = 2263) PRODUCT CODE (test code = Q9644V13 933-2) [facility], [facility] - PELVIS, FOR DISSECTION 2022-02-20 13:39:00Unlisted Reason for Exam - Click Yes and Enter Reason Below->No[facility] AUGUST : 1975 Sex: FAddendum BeginsREPORT STATUS:A Addendum: I agree with the previously described non vascular findings by Dr. Camp. Signed: Brendon Sharp MDReport Verified Date/Time: 02/20/2022 13:39:21 Reading Location: [facility] Radiology Reading RoomAddendum EndsFINAL REPORT CT [...] An addendum will be dictated by the Drawbridge Tender Radiologist regarding the nonvascular findings. THE REPORT WILL ONLY BE CONSIDERED COMPLETE AFTER THE ADDENDUM HAS BEEN DICTATED. Signed: Johnathan Camp MDReport Verified Date/Time: 02/17/2022 16:40:13 RAD, CHEST, 1 VIEW, NON DEPT 2022-02-20 08:22:00Reason for exam:->Post op chest tubes, atelectasis, effusion, pneumothorax, tamponadeShould this be performed at the bedside?->[facility] A[facility]UST : 1975 Sex: FFINAL REPORT RAD, CHEST, 1 VIEW, NON DEPT INDICATION: Post op chest tubes, atelectasis,effusion, pneumothorax, tamponade COMPARISON: Prior day's exam FINDINGS: Portable frontal view of the chest. IMPRESSION: Support Lines: NG tube descends below the diaphragm. [place]-Peter tip overlies the pulmonary outflow tract. Left chest tubes. Lungs and pleura: New diffuse interstitial thickening, representing singly or in combination, interstitial edema and/or pneumonitis. No significant pneumothorax. Heart and mediastinum: Stable contours. Additional findings: None. Signed: Della Hardeneport Verified Date/Time: 02/20/2022 08:22:33 Reading Location: [address] Reading Room POC ACTIVATED CLOTTING [id number] 06:24:22 Test Item Value Reference Range Interpretation Comments Activated Clotting Time 121 sec : 74 -137 seconds, (test code = 3184-9) Baselin e: TESTED AT [address], [facility] 30: Carpet Journeyman/Techni rosa ID = [id number] for Le , Gray [facility] ACTIVATED CLOTTING [id number] 06:24:22 Test Item Value Reference Range Interpretation Comments Activated Clotting Time 121 sec : 74 -137 seconds, (test code = 3184-9) Baselin e: TESTED AT [address], 770 30: Carpet Journeyman/Techni rosa ID = [id number] for Le , Gray [facility] ACTIVATED CLOTTING [id number] 06:24:22 Test Item Value Reference Range Interpretation Comments Activated Clotting Time 121 sec : 74 -137 seconds, (test code = 3184-9) Baselin e: TESTED AT [address], 770 30: Carpet Journeyman/Techni rosa ID = [id number] for Le , Gray [facility] ACTIVATED CLOTTING [id number] 06:24:22 Test Item Value Reference Range Interpretation Comments Activated Clotting Time 121 sec : 74 -137 seconds, (test code = 3184-9) Baselin e: TESTED AT [address], [facility] 30: Carpet Journeyman/Techni rosa ID = [id number] for Le , Gray [facility]PO[facility][id number] 06:24:22 Test Item Value Reference Range Interpretation Comments ACTIVATED CLOTTING TIME 121 sec : 74 -137 seconds, (BEAKER) (test code = Baseli ne: TESTED AT [facility]) [address], [facility] 30: Carpet Journeyman/Techni rosa ID = [id number] for Le , Gray [id number] 06:24:22 Test Item Value Reference Range Interpretation Comments ACTIVATED CLOTTING TIME 271 sec : 74 -137 seconds, (BEAKER) (test code = Baseli ne: TESTED AT 441) [address], [facility] 30: Carpet Journeyman/Techni rosa ID = [id number] for Le , Gray [id number] 06:24:21 Test Item Value Reference Range Interpretation Comments ACTIVATED CLOTTING TIME 237 sec : 74 -137 seconds, (BEAKER) (test code = Baseli ne: TESTED AT 441) [address], [facility] 30: Carpet Journeyman/Techni rosa ID = [id number] for Le , Gray [id number] 06:24:20 Test Item Value Reference Range Interpretation Comments ACTIVATED CLOTTING TIME 277 sec : 74 -137 seconds, (BEAKER) (test code = Baseli ne: TESTED AT [facility]) [address], [facility] 30: Carpet Journeyman/Techni rosa ID = [id number] for Le , Gray OXYGEN SATURATION, [id number] 04:06:04 Test Item Value Reference Range Interpretation Comments O2 SATURATION (MEASURED) (BEAKER) 90.1 % (test code = 1455) BASIC METABOLIC [id number] 04:05:14 Test Item Value Reference Range Interpretation [...] not appl icable for dialysis patien ts Carpet Journeyman ID - [id number] 03:53:40 Test Item Value Reference Range Interpretation Comments PARTIAL THROMBOPLASTIN TIME 33.2 seconds 22.5-36.0 (BEAKER) (test code = 760) [id number] 03:53:00 Test Item Value Reference Range Interpretation Comments PHOSPHORUS (BEAKER) (test code = 4.8 mg/dL 2.3-4.7 H 604) Carpet Journeyman ID - BSPROTHROMBIN TIME/[id number] 03:53:00 Test Item Value Reference Range Interpretation Comments PROTIME (BEAKER) 16.3 seconds 11.9-14.2 H (test code = 759) INR (BEAKER) (test 1.34 See_Comment [Automat ed message] code = 370) The system [employer] generated this result transmitted ref erence range: <=5.90. The reference range was not used to int erpret this result as normal/abnormal . RECOMMENDED COUMADIN/WARFARIN INR THERAPY RANGESSTANDARD DOSE: 2.0 - 3.0 Includes: PROPHYLAXIS for venous thrombosis, systemic embolization; TREATMENT for venous thrombosis and/or pulmonary embolus.HIGH RISK: Target INR is 2.5-3.5 for patients with mechanical heart valves.[id number] 03:52:59 Test Item Value Reference Range Interpretation Comments MAGNESIUM (BEAKER) (test code = 1.4 mg/dL 1.6-2.6 L 627) Carpet Journeyman ID - BSCBC (HEMOGRAM ONLY)2022-02-20 03:17:33 Test [...] (BEAKER) (test code = 413) BASIC METABOLIC [id number] 15:56:08 Test Item Value Reference Range Interpretation [...] not appl icable for dialysis patien ts Carpet Journeyman ID - [id number] 15:53:03 Test Item Value Reference Range Interpretation Comments MAGNESIUM (BEAKER) 1.7 mg/dL 1.6-2.6 Specimen slightly (test code = 627) hemolyzed Carpet Journeyman ID - [id number] 15:53:03 Test Item Value Reference Range Interpretation Comments PHOSPHORUS (BEAKER) 4.0 mg/dL 2.3-4.7 Specimen slightly (test code = 604) hemolyzed Carpet Journeyman ID - [id number] 15:42:57 Test Item Value Reference Range Interpretation Comments PARTIAL THROMBOPLASTIN TIME 30.9 seconds 22.5-36.0 (BEAKER) (test code = 760) PROTHROMBIN TIME/[id number] 15:41:58 Test Item Value Reference Range Interpretation Comments PROTIME (BEAKER) 15.1 seconds 11.9-14.2 H (test code = 759) INR (BEAKER) (test 1.22 See_Comment [Automat ed message] code = 370) The system [employer] generated this result transmitted ref erence range: <=5.90. The reference range was not used to int erpret this result as normal/abnormal . RECOMMENDED COUMADIN/WARFARIN INR THERAPY RANGESSTANDARD DOSE: 2.0 - 3.0 Includes: PROPHYLAXIS for venous thrombosis, systemic embolization; TREATMENT for venous thrombosis and/or pulmonary embolus.HIGH RISK: Target INR is 2.5-3.5 for patients with mechanical heart valves.CBC W/PLT COUNT & AUTO [id number] 15:34:08 Test Item Value Reference Range Interpretation [...] = 2801) RAD, CHEST, 1 VIEW, NON [id number] 15:29:00Reason for exam:->Post-opShould this be performed at the bedside?->Yes [facility] : 1975 Sex: FFINAL REPORT RAD, CHEST, 1 VIEW, NON DEPT INDICATION: Post-op COMPARISON: 02/16/2022 FINDINGS: Portable frontal view of the chest. IMPRESSION: Support Lines: ET tube tip is 3 cm superior tocarina. NG tube descends below the diaphragm. [place]-Peter tip overlies the pulmonary outflow tract. Left chest tubes. Lungs and pleura: Unchanged airspace and pleural opacities. No significant pneumothorax. Heart and mediastinum: Stable contours. Additional findings: None. Signed: Della Harden MDReport Verified Date/Time: 02/19/2022 15:29:54 Reading Location: [address] Reading Room Blood gas, [id number] 15:24:13 Test Item Value Reference Range Interpretation Comments pH, Arterial (test code 7.42 7.35-7.45 = 2744-1) pCO2, Arterial (test 38 See_Comment [Autom ated message] code = 2019-) The system [employer] generated this result transmit lucila reference range : 35 - 45 mm Hg. The reference range was not used to interpret this result as normal/abnormal . pO2, Arterial (test 126 See_Comment H [Automa lucila message] code = 2703-7) The system [employer] generated this result transmit lucila reference range [...] 50 Lab Interpretation Abnormal (test code = 25533-0) [facility], [id number] 15:24:13 Test Item Value Reference Range Interpretation Comments pH, Arterial (test code 7.42 7.35-7.45 = 2744-1) pCO2, Arterial (test 38 See_Comment [Autom ated message] code = 2019) The system [employer] generated this result transmit lucila reference range : 35 - 45 mm Hg. The reference range was not used to interpret this result as normal/abnormal . pO2, Arterial (test 126 See_Comment H [Automa lucila message] code = 2703-7) The system [employer] generated this result transmit lucila reference range [...] 50 Lab Interpretation Abnormal (test code = 07480-1) [facility], [id number] 15:24:13 Test Item Value Reference Range Interpretation Comments pH, Arterial (test code 7.42 7.35-7.45 = 2744-1) pCO2, Arterial (test 38 See_Comment [Autom ated message] code = 2019) The system [employer] generated this result transmit lucila reference range : 35 - 45 mm Hg. The reference range was not used to interpret this result as normal/abnormal . pO2, Arterial (test 126 See_Comment H [Automa lucila message] code = 2703-7) The system [employer] generated this result transmit lucila reference range [...] 50 Lab Interpretation Abnormal (test code = 00657-4) [facility] [id number] 15:24:13 Test Item Value Reference Range Interpretation Comments pH, Arterial (test code 7.42 7.35-7.45 = 2744-1) pCO2, Arterial (test 38 See_Comment [Autom ated message] code = 2018-11) The system [employer] generated this result transmit lucila reference range : 35 - 45 mm Hg. The reference range was not used to interpret this result as normal/abnormal . pO2, Arterial (test 126 See_Comment H [Automa lucila message] code = 2703-7) The system [employer] generated this result transmit lucila reference range [...] 50 Lab Interpretation Abnormal (test code = 71379-8) [facility] GAS, [id number] 15:24:13 Test Item Value Reference Range Interpretation [...] (test code = 1819) 50.0 OXYGEN SATURATION, [id number] 15:22:59 Test Item Value Reference Range Interpretation Comments O2 SATURATION (MEASURED) (BEAKER) 83.6 % (test code = 1455) Platelet [id number] 13:32:19 Test Item Value Reference Range Interpretation [...] normal/abnormal . ANTONIA (test code = ANTONIA) Carpet Journeyman ID - [id number] ID - 6000Operator ID - [id number] Lab Interpretation Abnormal (test code = 70261-9) [facility]Plate[facility] [id number] 13:32:19 Test Item Value Reference Range Interpretation [...] normal/abnormal . ANTONIA (test code = ANTONIA) Carpet Journeyman ID - [id number] ID - 6000Operator ID - [id number] Lab Interpretation Abnormal (test code = 93709-4) [facility]ate[facility] [id number] 13:32:19 Test Item Value Reference Range Interpretation [...] normal/abnormal . ANTONIA (test code = ANTONIA) Carpet Journeyman ID - [id number] ID - 6000Operator ID - [id number] Lab Interpretation Abnormal (test code = 81402-6) [facility] [id number] 13:32:19 Test Item Value Reference Range Interpretation [...] normal/abnormal . ANTONIA (test code = ANTONIA) Carpet Journeyman ID - 6000Operator ID - 6000Operator ID - [id number] Lab Interpretation Abnormal (test code = 70693-8) [facility]PLATELET [id number] 13:32:19 Test Item Value Reference Range Interpretation Comments PLATELET COUNT 103 K/CU MM 150-450 L Discordant re sults (BEAKER) (test code compared to previous, = 756) clinical correl ation required.Patien t is in CV OR Carpet Journeyman ID - 6000Operator ID - 6000Operator ID - [id number] 13:17:41 Test Item Value Reference Range Interpretation Comments Fibrinogen (test code = 3255-7) 202 mg/dl 225-434 L Lab Interpretation (test code = Abnormal 75729-0) [facility]ibr[facility]ogen20[facility] 13:17:41 Test Item Value Reference Range Interpretation Comments Fibrinogen (test code = 3255-7) 202 mg/dl 225-434 L Lab Interpretation (test code = Abnormal 33542-8) [facility]20[facility] 13:17:41 Test Item Value Reference Range Interpretation Comments Fibrinogen (test code = 3255-7) 202 mg/dl 225-434 L Lab Interpretation (test code = Abnormal 45249-1) [facility]ibr[facility]ogen2022-[facility]-10 13:17:41 Test Item Value Reference Range Interpretation Comments Fibrinogen (test code = 3255-7) 202 mg/dl 225-434 L Lab Interpretation (test code = Abnormal 65384-0) [facility]FIBRINOGEN2022-[facility]-10 13:17:41 Test Item Value Reference Range Interpretation Comments FIBRINOGEN LEVEL (BEAKER) (test 202 mg/dl 225-434 L code = 658) [id number] 13:17:41 Test Item Value Reference Range Interpretation Comments PARTIAL THROMBOPLASTIN TIME 36.2 seconds 22.5-36.0 H (BEAKER) (test code = 760) PROTHROMBIN TIME/[id number] 13:16:58 Test Item Value Reference Range Interpretation Comments PROTIME (BEAKER) 17.7 seconds 11.9-14.2 H (test code = 759) INR (BEAKER) (test 1.49 See_Comment [Automat ed message] code = 370) The system [employer] generated this result transmitted ref erence range: <=5.90. The reference range was not used to int erpret this result as normal/abnormal . RECOMMENDED COUMADIN/WARFARIN INR THERAPY RANGESSTANDARD DOSE: 2.0 - 3.0 Includes: PROPHYLAXIS for venous thrombosis, systemic embolization; TREATMENT for venous thrombosis and/or pulmonary embolus.HIGH RISK: Target INR is 2.5-3.5 for patients with mechanical heart valves.Calcium, [id number] 13:05:48 Test Item Value Reference Range Interpretation Comments Calcium, Ion (test code = 1993-) 1.29 mmol/L 1.12-1.27 H pH, Blood (test code = 65013-8) 7.39 Lab Interpretation (test code = Abnormal 57591-5) [facility]HCT (H&H)-Stat [id number] 13:05:48 Test Item Value Reference Range Interpretation Comments Hemoglobin (test code = 11.5 See_Comment L [Au tomated message] 776-7) The system [employer] generated this result transmitted ref erence range: 12.0 - 1 5.0 GM/DL. The refe rence range was not u sed to interpret this result as normal/abnor mal. Hematocrit (test code = 34.0 % 36.0-45.0 L 4544-3) Lab Interpretation (test Abnormal code = 37939-8) [facility] HospitalCalcium, [id number] 13:05:48 Test Item Value Reference Range Interpretation Comments Calcium, Ion (test code = 1993-) 1.29 mmol/L 1.12-1.27 H pH, Blood (test code = 19661-8) 7.39 Lab Interpretation (test code = Abnormal 17673-5) [facility] ([facility]&H[facility]Stat [id number] 13:05:48 Test Item Value Reference Range Interpretation Comments Hemoglobin (test code = 11.5 See_Comment L [Au tomated message] 154-7) The system [employer] generated this result transmitted ref erence range: 12.0 - 1 5.0 GM/DL. The refe rence range was not u sed to interpret this result as normal/abnor mal. Hematocrit (test code = 34.0 % 36.0-45.0 L 4544-3) Lab Interpretation (test Abnormal code = 15644-1) [facility] HospitalCalcium, [id number] 13:05:48 Test Item Value Reference Range Interpretation Comments Calcium, Ion (test code = 1993-06) 1.29 mmol/L 1.12-1.27 H pH, Blood (test code = 93750-4) 7.39 Lab Interpretation (test code = Abnormal 67642-1) [facility] ([facility]&H)-Stat [id number] 13:05:48 Test Item Value Reference Range Interpretation Comments Hemoglobin (test code = 11.5 See_Comment L [Au tomated message] 647-7) The system [employer] generated this result transmitted ref erence range: 12.0 - 1 5.0 GM/DL. The refe rence range was not u sed to interpret this result as normal/abnor mal. Hematocrit (test code = 34.0 % 36.0-45.0 L 4544-3) Lab Interpretation (test Abnormal code = 16365-4) [facility] HospitalCalcium, [id number] 13:05:48 Test Item Value Reference Range Interpretation Comments Calcium, Ion (test code = 1993-) 1.29 mmol/L 1.12-1.27 H pH, Blood (test code = 46204-6) 7.39 Lab Interpretation (test code = Abnormal 08343-0) [facility]Stat [id number] 13:05:48 Test Item Value Reference Range Interpretation Comments Hemoglobin (test code = 11.5 See_Comment L [Au tomated message] 718-7) The system [employer] generated this result transmitted ref erence range: 12.0 - 1 5.0 GM/DL. The refe rence range was not u sed to interpret this result as normal/abnor mal. Hematocrit (test code = 34.0 % 36.0-45.0 L 4544-3) Lab Interpretation (test Abnormal code = 58548-0) [facility] HospitalCALCIUM, [id number] 13:05:48 Test Item Value Reference Range Interpretation Comments CALCIUM IONIZED (BEAKER) (test 1.29 mmol/L 1.12-1.27 H code = 698) PH, BLOOD (BEAKER) (test code = 7.39 1810) BLOOD GAS, [id number] 13:05:48 Test Item Value Reference Range Interpretation [...] = 1819) 100.0 HGB/HCT (H&H) - STAT [id number] 13:05:48 Test Item Value Reference Range Interpretation Comments HEMOGLOBIN (BEAKER) (test code = 11.5 GM/DL 12.0-15.0 L 410) HEMATOCRIT (BEAKER) (test code = 34.0 % 36.0-45.0 L 411) Glucose-Stat [id number] 13:04:35 Test Item Value Reference Range Interpretation Comments Glucose (test code = 2345-7) 117 mg/dL 70-110 H Lab Interpretation (test code = Abnormal 91463-5) [facility] [id number] 13:04:35 Test Item Value Reference Range Interpretation Comments Sodium (test code = 2951-2) 138 meq/L 136-145 Lab Interpretation (test code = Normal 75223-6) [facility]Potassium-Stat [id number] 13:04:35 Test Item Value Reference Range Interpretation Comments Potassium (test code = 2823-3) 3.8 meq/L 3.6-5.5 Lab Interpretation (test code = Normal 52155-9) [facility]Glucose[facility] [id number] 13:04:35 Test Item Value Reference Range Interpretation Comments Glucose (test code = 2345-7) 117 mg/dL 70-110 H Lab Interpretation (test code = Abnormal 35387-3) [facility] Na-Stat [id number] 13:04:35 Test Item Value Reference Range Interpretation Comments Sodium (test code = 2951-2) 138 meq/L 136-145 Lab Interpretation (test code = Normal 42949-0) [facility]Potassium[facility]Stat [id number] 13:04:35 Test Item Value Reference Range Interpretation Comments Potassium (test code = 2823-3) 3.8 meq/L 3.6-5.5 Lab Interpretation (test code = Normal 54520-1) [facility]Glucose[facility]Stat [id number] 13:04:35 Test Item Value Reference Range Interpretation Comments Glucose (test code = 2345-7) 117 mg/dL 70-110 H Lab Interpretation (test code = Abnormal 50613-0) [facility] Na-Stat [id number] 13:04:35 Test Item Value Reference Range Interpretation Comments Sodium (test code = 2951-2) 138 meq/L 136-145 Lab Interpretation (test code = Normal 82173-9) [facility]Potassium[facility]Stat [id number] 13:04:35 Test Item Value Reference Range Interpretation Comments Potassium (test code = 2823-3) 3.8 meq/L 3.6-5.5 Lab Interpretation (test code = Normal 17126-9) [facility]Glucose[facility]Stat [id number] 13:04:35 Test Item Value Reference Range Interpretation Comments Glucose (test code = 2345-7) 117 mg/dL 70-110 H Lab Interpretation (test code = Abnormal 37965-9) [facility] Na-Stat [id number] 13:04:35 Test Item Value Reference Range Interpretation Comments Sodium (test code = 2951-2) 138 meq/L 136-145 Lab Interpretation (test code = Normal 99824-8) [facility]Potassium-Stat [id number] 13:04:35 Test Item Value Reference Range Interpretation Comments Potassium (test code = 2823-3) 3.8 meq/L 3.6-5.5 Lab Interpretation (test code = Normal 16313-3) [facility]GLUCOSE-STAT [id number] 13:04:35 Test Item Value Reference Range Interpretation Comments GLUCOSE RANDOM (BEAKER) (test code 117 mg/dL 70-110 H = 652) SODIUM NA-STAT [id number] 13:04:35 Test Item Value Reference Range Interpretation Comments SODIUM (BEAKER) (test code = 381) 138 meq/L 136-145 POTASSIUM-STAT [id number] 13:04:35 Test Item Value Reference Range Interpretation Comments POTASSIUM (BEAKER) (test code = 3.8 meq/L 3.6-5.5 379) CALCIUM, [id number] 11:58:46 Test Item Value Reference Range Interpretation Comments CALCIUM IONIZED (BEAKER) (test 0.78 mmol/L 1.12-1.27 LL code = 698) PH, BLOOD (BEAKER) (test code = 7.35 1810) SODIUM NA-STAT [id number] 11:51:08 Test Item Value Reference Range Interpretation Comments SODIUM (BEAKER) (test code = 381) 134 meq/L 136-145 L HGB/HCT (H&H) - STAT [id number] 11:51:02 Test Item Value Reference Range Interpretation Comments HEMOGLOBIN (BEAKER) (test code = 9.2 GM/DL 12.0-15.0 L 410) HEMATOCRIT (BEAKER) (test code = 27.0 % 36.0-45.0 L 411) BLOOD GAS, [id number] 11:50:55 Test Item Value Reference Range Interpretation [...] (BEAKER) (test code = 1819) 100.0 GLUCOSE-STAT [id number] 11:50:09 Test Item Value Reference Range Interpretation Comments GLUCOSE RANDOM (BEAKER) (test code 137 mg/dL 70-110 H = 652) POTASSIUM-STAT [id number] 11:50:09 Test Item Value Reference Range Interpretation Comments POTASSIUM (BEAKER) (test code = 3.8 meq/L 3.6-5.5 379) Hemoglobin and [id number] 11:06:21 Test Item Value Reference Range Interpretation Comments Hemoglobin (test code = 12.0 See_Comment [Au tomated message] 718-7) The system [employer] generated this result transmitted ref erence range: 12.0 - 1 5.0 GM/DL. The refe rence range was not u sed to interpret this result as normal/abnor mal. Hematocrit (test code = 35.0 % 36.0-45.0 L 4544-3) Lab Interpretation (test Abnormal code = 60607-1) [facility] HospitalHemoglobin and [id number] 11:06:21 Test Item Value Reference Range Interpretation Comments Hemoglobin (test code = 12.0 See_Comment [Au tomated message] 718-7) The system [employer] generated this result transmitted ref erence range: 12.0 - 1 5.0 GM/DL. The refe rence range was not u sed to interpret this result as normal/abnor mal. Hematocrit (test code = 35.0 % 36.0-45.0 L 4544-3) Lab Interpretation (test Abnormal code = 26143-5) [facility] HospitalHemoglobin and [id number] 11:06:21 Test Item Value Reference Range Interpretation Comments Hemoglobin (test code = 12.0 See_Comment [Au tomated message] 718-7) The system [employer] generated this result transmitted ref erence range: 12.0 - 1 5.0 GM/DL. The refe rence range was not u sed to interpret this result as normal/abnor mal. Hematocrit (test code = 35.0 % 36.0-45.0 L 4544-3) Lab Interpretation (test Abnormal code = 93762-0) [facility] HospitalHemoglobin and [id number] 11:06:21 Test Item Value Reference Range Interpretation Comments Hemoglobin (test code = 12.0 See_Comment [Au tomated message] 718-7) The system [employer] generated this result transmitted ref erence range: 12.0 - 1 5.0 GM/DL. The refe rence range was not u sed to interpret this result as normal/abnor mal. Hematocrit (test code = 35.0 % 36.0-45.0 L 4544-3) Lab Interpretation (test Abnormal code = 47997-8) [facility] HospitalHEMOGLOBIN AND [id number] 11:06:21 Test Item Value Reference Range Interpretation Comments HEMOGLOBIN (BEAKER) (test code = 12.0 GM/DL 12.0-15.0 410) HEMATOCRIT (BEAKER) (test code = 35.0 % 36.0-45.0 L 411) CALCIUM, [id number] 10:54:34 Test Item Value Reference Range Interpretation Comments CALCIUM IONIZED (BEAKER) (test 1.01 mmol/L 1.12-1.27 L code = 698) PH, BLOOD (BEAKER) (test code = 7.38 1810) BLOOD GAS, [id number] 10:53:20 Test Item Value Reference Range Interpretation [...] (BEAKER) (test code = 1819) 93.0 POTASSIUM-STAT [id number] 10:53:09 Test Item Value Reference Range Interpretation Comments POTASSIUM (BEAKER) (test code = 3.8 meq/L 3.6-5.5 379) HGB/HCT (H&H) - STAT [id number] 10:53:09 Test Item Value Reference Range Interpretation Comments HEMOGLOBIN (BEAKER) (test code = 12.1 GM/DL 12.0-15.0 410) HEMATOCRIT (BEAKER) (test code = 36.0 % 36.0-45.0 411) GLUCOSE-STAT [id number] 10:53:08 Test Item Value Reference Range Interpretation Comments GLUCOSE RANDOM (BEAKER) (test code 114 mg/dL 70-110 H = 652) SODIUM NA-STAT [id number] 10:53:08 Test Item Value Reference Range Interpretation Comments SODIUM (BEAKER) (test code = 381) 137 meq/L 136-145 CALCIUM, [id number] 10:10:35 Test Item Value Reference Range Interpretation Comments CALCIUM IONIZED (BEAKER) (test 0.98 mmol/L 1.12-1.27 L code = 698) PH, BLOOD (BEAKER) (test code = 7.44 1810) BLOOD GAS, [id number] 10:10:25 Test Item Value Reference Range Interpretation [...] (test code = 1819) 80.0 BASIC METABOLIC [id number] 06:39:31 Test Item Value Reference Range Interpretation [...] not appl icable for dialysis patien ts Carpet Journeyman ID - KATIE [id number] 06:39:31 Test Item Value Reference Range Interpretation Comments MAGNESIUM (NASH) (test code = 2.1 mg/dL 1.6-2.6 627) Carpet Journeyman ID - KATIE [id number] 06:39:31 Test Item Value Reference Range Interpretation Comments PHOSPHORUS (DAVONAKER) (test code = 3.3 mg/dL 2.3-4.7 604) Carpet Journeyman ID - KATIE MPOCT-GLUCOSE [id number] 06:07:24 Test Item Value Reference Range Interpretation Comments POC-GLUCOSE METER 79 mg/dL 70-110 : TESTED A T [facility] 6720 (NASH) (test code = [place], 1538) 18[address]: Carpet Journeyman/Techni rosa ID = [id number] for KERRI LIM SARS-CoV2/RT-PCR (Asymptomatic ONLY)2022-02-19 03:04:11 Test Item Value Reference Interpretation Comments Range SARS-COV2/RT-PCR Negative Negative The SARS-Co V-2 (test code = target nucleic 79347-1) acids are not detected in thi s [...] revoked sooner. Fact Sheet for Healthcare Providers: https://www.[employer]/Documents/Xp ert%20Xpress%20SAR S%20CoV-2/Fact%20S heets/302-3802%20S ARS-COV-2%20HEALTH CARE%20PROVIDERS%2 0FACT%20SHEET.pdf Fact Sheet for Healthcare Patients: https://www.[employer]/Documents/Xp ert%20Xpress%20SAR S%20CoV-2/Fact%20S heets/302-3801%20S ARS-COV-2%20PATIEN T%20FACT%20SHEET.p df Lab Interpretation Normal (test code = 09751-1) [facility]2022-02-19 03:04:11 Test Item Value Reference Interpretation Comments Range SARS-COV2/RT-PCR Negative Negative The SARS-Co V-2 (test code = target nucleic 78165-1) acids are not detected in thi s [...] om SARS-CoV-2 in a [facility]oph[facility] s suspected of COVID-19 [...] revoked sooner. Fact Sheet for Healthcare Providers: https://www.[employer]/Documents/Xp ert%20Xpress%20SAR S%20CoV-2/Fact%20S heets/302-3802%20S ARS-COV-2%20HEALTH CARE%20PROVIDERS%2 0FACT%20SHEET.pdf Fact Sheet for Healthcare Patients: https://www.[employer]/Documents/Xp ert%20Xpress%20SAR S%20CoV-2/Fact%20S heets/302-3801%20S ARS-COV-2%20PATIEN T%20FACT%20SHEET.p df Lab Interpretation Normal (test code = 92466-0) [facility]omatic ONLY[facility]2022-02-19 03:04:11 Test Item Value Reference Interpretation Comments Range SARS-COV2/RT-PCR Negative Negative The SARS-Co V-2 (test code = target nucleic 49321-6) acids are not detected in thi s [...] revoked sooner. Fact Sheet for Healthcare Providers: https://www.[employer]/Documents/Xp ert%20Xpress%20SAR S%20CoV-2/Fact%20S heets/302-3802%20S ARS-COV-2%20HEALTH CARE%20PROVIDERS%2 0FACT%20SHEET.pdf Fact Sheet for Healthcare Patients: https://www.[employer]/Documents/Xp ert%20Xpress%20SAR S%20CoV-2/Fact%20S heets/302-3801%20S ARS-COV-2%20PATIEN T%20FACT%20SHEET.p df Lab Interpretation Normal (test code = 42725-1) [facility]2022-02-19 03:04:11 Test Item Value Reference Interpretation Comments Range SARS-COV2/RT-PCR Negative Negative The SARS-Co V-2 (test code = target nucleic 23791-7) acids are not detected in thi s [...] revoked sooner. Fact Sheet for Healthcare Providers: https://www.[employer]/Documents/Xp ert%20Xpress%20SAR S%20CoV-2/Fact%20S heets/302-3802%20S ARS-COV-2%20HEALTH CARE%20PROVIDERS%2 0FACT%20SHEET.pdf Fact Sheet for Healthcare Patients: https://www.[employer]/Documents/Xp ert%20Xpress%20SAR S%20CoV-2/Fact%20S heets/302-3801%20S ARS-COV-2%20PATIEN T%20FACT%20SHEET.p df Lab Interpretation Normal (test code = 91341-7) [facility])2022-02-19 03:04:11 Test Item Value Reference Range Interpretation Comments SARS-COV2/RT-PCR Negative Negative The SARS-Co V-2 target (test code = nucleic acids a re not 5026041) detected in thi s specimen. Negative result [...] revoked sooner. Fact Sheet for Healthcare Providers: https://www.[employer]/Documents/Xpert%20Xpress%20SARS%20CoV-2/Fact%20Sheets/3023802%61KTVK-VRX-8%20 HEALTHCARE%20PROVIDERS%20FACT%20SHEET.pdf Fact Sheet for Healthcare Patients: https://www.[employer]/Documents/Xpert%20Xp ress%20SARS%20CoV-2/Fact%20Sheets/302-3801%16UCSZ-WIG-9%20PATIENT%20FACT%20SHEET .pdf(CELLAVISION MANUAL DIFF)2022-02-18 07:46:20 Test Item Value [...] CONCENTRATION Adequate (CELLAVISION)(BEAKER) (test code = 3438) Carpet Journeyman ID - Gus Jane comments: Slide comments:CBC W/PLT COUNT & AUTO [id number] 07:46:09 Test Item Value Reference Range Interpretation [...] WBC 0-0 (BEAKER) (test code = 413) [id number] 05:06:35 Test Item Value Reference Range Interpretation Comments PHOSPHORUS (BEAKER) (test code = 3.1 mg/dL 2.3-4.7 604) Carpet Journeyman ID - MARILIN WBASIC METABOLIC [id number] 05:06:34 Test Item Value Reference Range Interpretation [...] not appl icable for dialysis patien ts Carpet Journeyman ID - MARILIN [id number] 05:06:34 Test Item Value Reference Range Interpretation Comments MAGNESIUM (BEAKER) (test code = 2.1 mg/dL 1.6-2.6 627) Carpet Journeyman ID - MARILIN W2D Echo W/Doppler(CW/PW/Color)2022-02-17 16:05:45Ejection FractionSLEH ECHO [facility] Echo W/Doppler(CW/PW/Color)2022-02-17 16:05:45Ejection FractionSLEH ECHO [facility] W/Doppler(CW/PW/Color) 2022-02-17 16:05:45Ejection FractionSLEH [facility] W/Doppler(CW/PW/Color)2022-02-17 16:05:45Ejection FractionSLEH ECHO HEARTLAB [facility] (CELLAVISION MANUAL DIFF)2022-02-17 07:14:35 Test Item [...] CONCENTRATION Adequate (CELLAVISION)(BEAKER) (test code = 3438) Carpet Journeyman ID - Keyanna BurkhalterUser comments: Slide comments:CBC W/PLT COUNT & AUTO [id number] 07:14:34 Test Item Value Reference Range Interpretation [...] WBC 0-0 (BEAKER) (test code = 413) [id number] 05:58:15 Test Item Value Reference Range Interpretation Comments PHOSPHORUS (BEAKER) (test code = 3.1 mg/dL 2.3-4.7 604) Carpet Journeyman ID - PIAYA LBASIC METABOLIC [id number] 05:58:14 Test Item Value Reference Range Interpretation [...] not appl icable for dialysis patien ts Carpet Journeyman ID - SARAH [id number] 05:58:14 Test Item Value Reference Range Interpretation Comments MAGNESIUM (BEAKER) (test code = 2.2 mg/dL 1.6-2.6 627) Carpet Journeyman ID - SARAH L(CELLAVISION MANUAL DIFF)2022-02-16 10:13:46 Test Item Value [...] CONCENTRATION Adequate (CELLAVISION)(BEAKER) (test code = 3438) Carpet Journeyman ID - Viridiana OverholtUser comments: Slide comments:CBC W/PLT COUNT & AUTO [id number] 10:13:45 Test Item Value Reference Range Interpretation [...] = 413) RAD, CHEST, 1 VIEW, NON [id number] 07:19:00Reason for exam:->Chest pain; aortic knob pseudoaneurysmShould this be performed at the bedside?->Yes [facility] : 1975 Sex: FFINAL REPORT INDICATION: [...] Harden Verified Date/Time: 02/16/2022 07:19:54 Reading Location: [facility] [address] [place] Reading Room [id number] 07:08:24 Test Item Value Reference Range Interpretation Comments PHOSPHORUS (BEAKER) (test code = 3.1 mg/dL 2.3-4.7 604) Carpet Journeyman ID - PIAYA LCOMPREHENSIVE METABOLIC [id number] 07:08:23 Test Item Value Reference Range Interpretation [...] not appl icable for dialysis patien ts Carpet Journeyman ID - SARAH [id number] 07:08:23 Test Item Value Reference Range Interpretation Comments MAGNESIUM (NASH) (test code = 2.2 mg/dL 1.6-2.6 627) Carpet Journeyman ID - SARAH LPOCT-GLUCOSE [id number] 06:46:24 Test Item Value Reference Range Interpretation Comments POC-GLUCOSE METER 85 mg/dL 70-110 : TESTED A T [facility] 6720 (NASH) (test code = GRANT Dan [facility], 1538) 26862: Carpet Journeyman/Techni rosa ID = [id number] for Simon Dawkins HCG, QUANTITATIVE, [id number] 06:20:00 Test Item Value Reference Range Interpretation Comments GONADOTROPIN, CHORIONIC (HCG) QUANT < mIU/mL 0-10 (NASH) (test code = 649) Non- Females: <10 mIU/mL Females: Gestation Age Reference Range(mIU/mL) 0.2-1 Week 5-50 1-2 Weeks 50-500 2-3 Weeks 100-5,000 3-4 Weeks 500-10,000 4-5 Weeks 1,000-50,000 5-6 Weeks 10,000-100,000 6-8 Weeks 15,000- 200,000 2-3 Months 10,000-100,000 Carpet Journeyman ID - SARAH LHIGH SENSITIVITY TROPONIN [id number] 06:19:43 Test Item Value Reference Range Interpretation Comments HIGH SENSITIVITY 5 pg/ml See_Comment [Automated message] TROPONIN I (test code = The system which 2735088) generated this result transmitted ref erence range: <=17. Th e reference range was not used to interpr et this result as normal/abnormal . Carpet Journeyman ID - SARAH LThe AIRCRAFT REFUELLER STAT High Sensitivity Troponin-I results should be used in conjunction with other diagnostic information such as ECG, clinical observations and information, and patient symptoms to aid in the diagnosis of AL.[id number] 06:13:24 Test Item Value Reference Range Interpretation Comments PARTIAL THROMBOPLASTIN TIME 30.3 seconds 22.5-36.0 (BEAKER) (test code = 760) [id number] 06:13:18 Test Item Value Reference Range Interpretation Comments FIBRINOGEN LEVEL (BEAKER) (test 331 mg/dl 225-434 code = 658) PROTHROMBIN TIME/[id number] 06:12:40 Test Item Value Reference Range Interpretation Comments PROTIME (BEAKER) 14.2 seconds 11.9-14.2 (test code = 759) INR (BEAKER) (test 1.16 See_Comment [Automat ed message] code = 370) The system [employer] generated this result transmitted ref erence range: <=5.90. The reference range was not used to int erpret this result as normal/abnormal . RECOMMENDED COUMADIN/WARFARIN INR THERAPY RANGESSTANDARD DOSE: 2.0 - 3.0 Includes: PROPHYLAXIS for venous thrombosis, systemic embolization; TREATMENT for venous thrombosis and/or pulmonary embolus.HIGH RISK: Target INR is 2.5-3.5 for patients with mechanical heart valves. Notes Date/Time Note Provider Source 2022-02-19 17:58:32-00:00 [facility]PROCEDURE [facility] KEVYN WATTS FACILITY: [facility] Billing #: [id number] Room: [facility] MR #: [id number] : 1975 DATE OF PROCEDURE: 02/19/2022 SURGEON: Otoniel Haque MD PROCEDURE: Distal hemiarch replacement and proxi mal descending replacement on left heart bypass with 18mm Gelweave graft PREOPERATIVE DIAGNOSIS: Coarctation of the desce nding aorta and arch. 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 FRONT DESK COORDINATOR: Burton Palma SECOND FILLING AND PACKING SUPERVISOR: Tomás Bauer RES ANESTHETIC: General endotracheal. HISTORY: The patient presented with back pain. S he was found to have what looked like an aneurysm and coarcta tion. She understood risks of stroke, bleeding, , and paralysis and agreed to proceed. FINDINGS: The patient had a chronic dissection t hat was localized, but it was in the distal arch and pro ximal descending thoracic aorta. We did a distal aorti c arch replacement across the subclavian and proximal d escending thoracic aortic replacement with an 18 mm Gelwea ve graft. DESCRIPTION OF PROCEDURE: The patient's chest wa s draped and prepped. A left posterolateral thoracotomy was p erformed. 4th intercostal space was entered. We retracted the lung, took down the pleura around the aorta, and carefully preserved the recurrent laryngeal and phrenic nerves. We encir cled the aorta between the carotid and subclavian and encircled it in the mid chest and got control of the subclavian. We were not sure if we were going to have to reimplant the subclavia n or whether just resect the arch for the hemiarch type proce dure. We then cannulated the left inferior pulmonary vein and the distal descending aorta. We then crossclamped the aorta proximally between the carotid and subclavian, went on pump . We flowed about 2 L. We clamped the mid proximal aorta and the left subclavian and transected the aorta and got the findings as noted above. We excised out proximally into the arch and then measured to an 18 mm Gelweave graft and sewed ou r proximal anastomosis end-to-end with running 4-0 Prolene suture reconstructing the dissected lesser curve. We th en cut the graft to appropriate length and then did our dis clotilde anastomosis after reconstituting flow into the left subclavi an. We then did our distal anastomosis about 3 or 4 inches d own end-to-end with a running 4-0 Prolene suture and felt buttr ess exteriorly. We meticulously de-aired the graft, discontinue d pump and removed the cross-clamp, reconstituted distal fl ow. We obtained hemostasis, put in chest tubes, removed the cannulas, secured their sites and closed with absorbable s uture in multiple layers. I directly participated in all malin portions including dissection, cannulation, and the entir e period of left heart bypass and was otherwise immediately available for entire operation. Total left heart bypass time 3 7 minutes. Total cross-clamp time 34 minutes. Of note, we g ave vancomycin and aztreonam for antibiotics, which we will dis continue within 48 hours. We did not use any specific DVT prophy laxis since this is not indicated for cardiac surgical proce dure. We used a left heart bypass with a 15-[place] aortic quintin jennifer and a 20-South African inferior pulmonary vein cannula. Dr. Ayala was required as my 1st community relations assistant d ue to the rarity of this procedure and the proximity to th e arch. I did not have a high enough level of resident availab le in order to help me complete the procedure safely. Dr. Allison wilson helped with identification of vital structures, identif ication, proximal clamp, positioning and visualization fo r anastomosis. JEF/VIELKA /[id number]
--- NOTE | 2022-09-17 21:09 | RAD REPORT ---
EXAM DESCRIPTION: RAD - Chest Single View - 09/17/2022 9:01 pm CLINICAL HISTORY: COUGH Chest pain. COMPARISON: Chest Single View dated 05/11/2022; Chest Single View dated 02/15/2022; Chest Pa And Lat ( 2 Views) dated 03/03/2017; CHEST SINGLE VIEW dated 01/14/2015 FINDINGS: Portable technique limits examination quality. The lungs are grossly clear. The heart is normal in size. No displaced fractures. IMPRESSION: No acute intrathoracic process suspected.
[2022-09-17] MEDS ORDERED: METHYLPREDNISOLONE 40 MG INJ ONE (21:24)
[2022-09-17] MEDS ORDERED: ALBUTEROL 2.5 MG/3 ML NEB SOL ONE ×3 (21:24→22:13)
[2022-09-17] MEDS ORDERED: IPRATROPIUM BROM 0.5MG/2.5ML ONE ×3 (21:24→22:13)
[2022-09-17 21:36] LABS: Absolute Lymphocytes (CBC) 2.4 K/uL (0.7-4.9); Hematocrit 42.5 % (36.0-45.0); Lymphocytes % 46.4 % (15.3-44.8); RBC Red Blood Cell Count 4.78 M/uL (3.86-4.86)
[2022-09-17 21:55] LABS: Potassium 3.3 mEq/L (3.5-5.1); Troponin High Sensitivity 11.2 pg/mL (<58.9)
--- NOTE | 2022-09-17 22:51 | EDPHYS ---
Physician Documentation [facility] Name: Jen Joyce Age: 47 yrs Sex: Female : 1975 Arrival Date: 09/17/2022 Time: 20:44 Bed 2 Private MD: ED Physician Luis Alexander HPI: 09/17 21:00 This 47 yrs old Female presents to ER via EMS with complaints of asthma. 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 Patient is out of her medications and does not currently have a PCP. She denies any fever, productive nature to her cough, chest pain, syncope, near syncope, profound dyspnea, abdominal pain, back pain, nausea, vomiting, diarrhea, rash, known sick contacts, travel history, or any other signs or symptoms on ROS at this time.. 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 - Social history:: Smoking status: Patient/guardian denies using tobacco, the patient reports quitting approximately 1 years ago. ROS: 21:01 Constitutional: Negative for fever, chills, and weight loss, Eyes: Negative for injury, sp3 pain, redness, and discharge, ENT: Negative for injury, pain, and discharge, Neck: Negative for injury, pain, and swelling, Cardiovascular: Negative for chest pain, palpitations, and edema, Abdomen/GI: Negative for abdominal pain, nausea, vomiting, diarrhea, and constipation, Back: Negative for injury and pain, MS/Extremity: Negative for injury and deformity, Skin: Negative for injury, rash, and discoloration, Neuro: Negative for headache, weakness, numbness, tingling, and seizure, Psych: Negative for depression, anxiety, suicide ideation, homicidal ideation, and hallucinations, Allergy/Immunology: Negative for hives, rash, and allergies, Endocrine: Negative for neck swelling, polydipsia, polyuria, polyphagia, and marked weight changes, Hematologic/Lymphatic: Negative for swollen nodes, abnormal bleeding, and unusual bruising. 21:01 All other systems are negative. Exam: 21:02 Constitutional: This is a well developed, well nourished patient who is awake, alert, sp3 and in no acute distress. Head/Face: Normocephalic, atraumatic. Eyes: Pupils equal round and reactive to light, extra-ocular motions intact. Lids and lashes normal. Conjunctiva and sclera are non-icteric and not injected. Cornea within normal limits. Periorbital areas with no swelling, redness, or edema. ENT: Nares patent. No nasal discharge, no septal abnormalities noted. External auditory canals are clear. Oropharynx with no redness, swelling, or masses, exudates, or evidence of obstruction, uvula midline. Mucous membranes moist. Neck: Trachea midline, no thyromegaly or masses palpated, and no cervical lymphadenopathy. Supple, full range of motion without nuchal rigidity, or vertebral point tenderness. No Meningismus. Chest/axilla: Normal chest wall appearance and motion. Nontender with no deformity. No lesions are appreciated. Cardiovascular: Regular rate and rhythm with a normal S1 and S2. No gallops, murmurs, or rubs. Normal PMI, no JVD. No pulse deficits. Abdomen/GI: Soft, non-tender, with normal bowel sounds. No distension or tympany. No guarding or rebound. No evidence of tenderness throughout. Back: No spinal tenderness. No costovertebral tenderness. Full range of motion. Skin: Warm, dry with normal turgor. Normal color with no rashes, no lesions, and no evidence of cellulitis. MS/ Extremity: Pulses equal, no cyanosis. Neurovascular intact. Full, normal range of motion. Neuro: Awake and alert, GCS 15, oriented to person, place, time, and situation. Cranial nerves II-XII grossly intact. Motor strength 5/5 in all extremities. Sensory grossly intact. Cerebellar exam normal. Normal gait. Psych: Awake, alert, with orientation to person, place and time. Behavior, mood, and affect are within normal limits. 21:02 Respiratory: Expiratory wheezes noted. No accessory muscle use or difficulty breathing noted. Pulse oxygenation is normal and respiratory rate of 16. Remainder vital signs are also normal.. 21:21 ECG was reviewed by the Attending Physician. EKG demonstrates normal sinus rhythm at 61 sp3 bpm with normal intervals, normal QRS, normal axis, nonspecific ST/T changes in lead III without any evidence of acute ischemia. Vital Signs: 21:12 Weight 56.7 kg; Height 4 ft. 8 in. ; kd3 21:22 BP 123 / 77; Pulse 59; Resp 17; Temp 98.9(O); Pulse Ox 100% on R/A; kd3 22:11 BP 114 / 62; Pulse 59; Resp 17; Pulse Ox 100% on R/A; kd3 23:15 BP 110 / 64; Pulse 75; Resp 19; Pulse Ox 96% on R/A; kd3 21:12 Body Mass Index 28.02 (56.70 kg, 142.24 cm) kd3 MDM: 20:52 Patient medically screened. sp3 21:02 Data reviewed: vital signs, nurses notes, EMS record, lab test result(s), EKG, sp3 radiologic studies. ED course: 47-year-old female with history of asthma now with asthma symptoms and wheezing. I believe this is an asthma exacerbation. I am not highly suspicious for acute coronary syndrome, congestive heart failure, pneumonia, PE, or any other critical illness or infection at this time. Will obtain EKG, chest x-ray, laboratory values including troponin, and administer nebulizer and Solu-Medrol IV. If patient is improved, we will safely discharge her home on oral and inhaled medication for her asthma symptoms with instructions to reestablish care with her PCP. She is in the process getting her Medicaid reinstituted and thinks it will be "any day now" before she gets it. She knows that she may return here at any time if she feels like she has any other emergency.. 22:48 ED course: Patient feels much improved. No more wheezing is noted on physical exam. We sp3 will discharge patient home on prednisone and refill nebulizer.. 09/17 20:51 Order name: Basic Metabolic Panel sp3 09/17 20:51 Order name: CBC with Diff sp3 09/17 20:51 Order name: NT PRO-BNP sp3 09/17 20:51 Order name: Troponin HS sp3 09/17 20:51 Order name: XRAY Chest (1 view) sp3 09/17 20:51 Order name: PEAK FLOW sp3 09/17 20:51 Order name: EKG; Complete Time: 20:51 sp3 09/17 20:51 Order name: Cardiac monitoring; Complete Time: 21:12 sp3 09/17 20:51 Order name: EKG - Nurse/Tech; Complete Time: 21:12 sp3 09/17 20:51 Order name: IV Saline Lock; Complete Time: 21:12 sp3 09/17 20:51 Order name: Labs collected and sent; Complete Time: 21:12 sp3 Administered Medications: 21:22 Drug: DuoNeb Nebulize (2.5 mg - 0.5 mg) 3 ml Route: Nebulizer; kd3 23:14 Follow up: Response: No adverse reaction kd3 21:22 Drug: MethylPrednisoLONE IVP 60 mg Route: IVP; Site: right antecubital; kd3 23:13 Follow up: Response: No adverse reaction kd3 22:28 Drug: DuoNeb Nebulize (2.5 mg - 0.5 mg) 3 ml Route: Nebulizer; kd3 23:13 Follow up: Response: No adverse reaction kd3 Disposition Summary: 09/17/22 22:51 Discharge Ordered Location: Home sp3 Condition: Stable sp3 Diagnosis - Asthma exacerbation sp3 Followup: sp3 - With: Private Physician - When: Upon discharge from the Emergency Department - Reason: Continuance of care Discharge Instructions: - Discharge Summary Sheet sp3 - Asthma Attack Prevention, Adult sp3 Forms: - Medication Reconciliation Form sp3 - Thank You Letter sp3 - Antibiotic Education sp3 - Prescription Opioid Use sp3 Prescriptions: - albuterol sulfate 90 mcg/actuation Inhalation HFA Aerosol Inhaler - inhale 3 puff by INHALATION route every 20 minutes for up to 3 doses; 2 unit; sp3 Refills: 0, Product Selection Permitted - Prednisone 20 mg Oral Tablet - take 2 tablets by ORAL route once daily for 5 days; 10 tablet; Refills: 0, sp3 Product Selection Permitted Signatures: Dispatcher [employer] Luis Mar MD MD sp3 Soledad Kyle RN RN kd3
--- NOTE | 2022-09-17 22:51 | ER ---
Nurse's Notes [facility] Name: Jen Joyce Age: 47 yrs Sex: Female : 1975 Arrival Date: 09/17/2022 Time: 20:44 Bed 2 Private MD: Diagnosis: Asthma exacerbation Presentation: 09/17 20:49 Chief complaint: EMS states: She had an asthma attack at home. We gave her an A\T\A kd3 treatment and she is a lot better now but she still wanted to come in and get checked out. Ebola Screen: No symptoms or risks identified at this time. Onset of symptoms was September 17, 2022. 20:49 Method Of Arrival: EMS: [facility] kd3 20:49 Acuity: TAMELA 3 kd3 21:12 Coronavirus screen: Vaccine status: Patient reports receiving the 2nd dose of the covid kd3 vaccine. Initial Sepsis Screen: Does the patient meet any 2 criteria? No. Patient's initial sepsis screen is negative. Does the patient have a suspected source of infection? No. Patient's initial sepsis screen is negative. Risk Assessment: Do you want to hurt yourself or someone else? Patient reports no desire to harm self or others. Triage Assessment: 21:13 General: Appears in no apparent distress. Behavior is calm, cooperative. Pain: Denies kd3 pain. 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 - Social history:: Smoking status: Patient/guardian denies using tobacco, the patient reports quitting approximately 1 years ago. Screenin:37 [facility] ED Fall Risk Assessment (Adult) History of falling in the last 3 months, kd3 including since admission No falls in past 3 months (0 pts) Confusion or Disorientation No (0 pts) Intoxicated or Sedated No (0 pts) Impaired Gait No (0 pts) Mobility Assist Device Used No (0 pt) Altered Elimination No (0 pt) Score/Fall Risk Level 0 - 2 = Low Risk Maintained a safe environment. Abuse screen: Denies threats or abuse. Denies injuries from another. Nutritional screening: No deficits noted. Tuberculosis screening: No symptoms or risk factors identified. Assessment: 23:16 Reassessment: Patient and/or family updated on plan of care and expected duration. Pain kd3 level reassessed. Patient is alert, oriented x 3, equal unlabored respirations, skin warm/dry/pink. Patient states feeling better. Patient states symptoms have improved. Vital Signs: 21:12 Weight 56.7 kg; Height 4 ft. 8 in. ; kd3 21:22 BP 123 / 77; Pulse 59; Resp 17; Temp 98.9(O); Pulse Ox 100% on R/A; kd3 22:11 BP 114 / 62; Pulse 59; Resp 17; Pulse Ox 100% on R/A; kd3 23:15 BP 110 / 64; Pulse 75; Resp 19; Pulse Ox 96% on R/A; kd3 21:12 Body Mass Index 28.02 (56.70 kg, 142.24 cm) kd3 ED Course: 20:45 Patient arrived in ED. em1 20:46 Luis Alexander MD is Attending Physician. sp3 20:49 Soledad Kyle, STEPH is Primary Nurse. kd3 20:49 Arm band placed on right wrist. kd3 20:50 Triage completed. kd3 21:03 XRAY Chest (1 view) In Process Unspecified. EDMS 21:22 Basic Metabolic Panel Sent. kd3 21:22 CBC with Diff Sent. kd3 21:22 NT PRO-BNP Sent. kd3 21:22 Troponin HS Sent. kd3 21:37 Patient has correct armband on for positive identification. kd3 23:14 No provider procedures requiring assistance completed. IV discontinued, intact, kd3 bleeding controlled, No redness/swelling at site. Pressure dressing applied. Administered Medications: 21:22 Drug: DuoNeb Nebulize (2.5 mg - 0.5 mg) 3 ml Route: Nebulizer; kd3 23:14 Follow up: Response: No adverse reaction kd3 21:22 Drug: MethylPrednisoLONE IVP 60 mg Route: IVP; Site: right antecubital; kd3 23:13 Follow up: Response: No adverse reaction kd3 22:28 Drug: DuoNeb Nebulize (2.5 mg - 0.5 mg) 3 ml Route: Nebulizer; kd3 23:13 Follow up: Response: No adverse reaction kd3 Medication: 21:37 VIS not applicable for this client. kd3 Outcome: 22:51 Discharge ordered by . sp3 23:14 Discharged to home ambulatory. kd3 23:14 Condition: stable 23:14 Discharge instructions given to patient, family, Instructed on discharge instructions, follow up and referral plans. medication usage, Demonstrated understanding of instructions, follow-up care, medications, Prescriptions given X 2. 23:18 Patient left the ED. kd3 Signatures: Dispatcher [employer] EDMN Daniel Khan em1 Luis Alexander MD MD sp3 Soledad Kyle, RN RN kd3
[2022-09-17 23:37] VITALS: TEMP 98.9
[2022-09-17 23:41] VITALS: BP 110/64; O2SAT 96
--- NOTE | 2022-09-18 14:47 | EKG ---
Test Date: 2022-09-17 Test Time: 21:12:33 Lawn Caretaker: GALINDO MEASUREMENT RESULTS: Intervals: Rate: 61 NC: 146 QRSD: 100 QT: 418 QTc: 420 [place]: P: 61 NC: 146 QRS: 27 T: 59 INTERPRETIVE STATEMENTS: Normal sinus rhythm Normal ECG Compared to ECG 05/11/2022 20:36:43 Sinus bradycardia no longer present Incomplete right bundle-branch block no longer present T-wave abnormality no longer present Possible ischemia no longer present Electronically Signed On 09-18-22 14:44:24 CDT by Nino Perrin
== END 2022-09-17 23:18 | disposition home or self-care (01) ==
LOC: ER 20:44
DX: J45.901 Unspecified asthma with (acute) exacerbation (principal)
CPT/HCPCS: 36415; 71045; 80048; 83880; 84484; 85025; 93005; 94010; 94640; 96374; 99285; J2920; J7613; J7644

== ENCOUNTER 2024-07-21 18:48 | Inpatient (IN) | payer OTHER, SELFPAY ==
[2024-07-21] MEDS ORDERED: IPRATROPIUM BROM 0.5MG/2.5ML ONE (19:24)
[2024-07-21] MEDS ORDERED: ALBUTEROL 2.5 MG/3 ML NEB SOL ONE (19:24)
[2024-07-21] MEDS ORDERED: NA CHLORIDE 0.9% 1,000 ML ONE (19:25)
[2024-07-21] MEDS ORDERED: dexAMETHasone 10 MG/ML VIAL ONE (19:25)
[2024-07-21] MEDS ORDERED: IBUPROFEN 400 MG TAB ONE (19:25)
[2024-07-21] MEDS ORDERED: ACETAMINOPHEN 500 MG TAB ONE (19:25)
[2024-07-21 19:30] LABS: Absolute Basophils 0.1 K/uL (0-0.5); Absolute Eosinophils 0.3 K/uL (0-0.5); Absolute Monocytes 0.5 K/uL (0.1-1.3); Absolute Neutrophil 6.1 K/uL (1.8-8.0); Eosinophils % 3.6 % (0-4.4); Hematocrit 42.7 % (36.0-45.0); Hemoglobin 14.7 g/dL (12.0-15.0); Lymphocytes % 22.4 % (15.3-44.8); MCH 30.2 pg (27.0-35.0); MCHC 34.3 g/dL (32.0-36.0); MPV 7.6 fL (7.6-11.3); Nucleated Red Blood Cells % 0.4 % (0-0); Platelets 317 thou/uL (152-406); RBC Red Blood Cell Count 4.86 M/uL (3.86-4.86); Red Cell Distribution Width 14.2 % (12.1-15.2)
[2024-07-21 19:37] LABS: PT Prothrombin Time 11.6 SECONDS (10-13.0); PTT, Activated Partial Thromb 29.4 SECONDS (27.2-37.4); Protime INR 1.02
[2024-07-21 19:46] LABS: Albumin 4.5 g/dL (3.4-5.0); Albumin/Globulin Ratio 1.2 (1.1-1.8); Bilirubin Total 0.5 mg/dL (0.2-1.0); Globulin 3.9 g/dL (2.3-3.5); Protein, Total 8.4 g/dL (6.4-8.2); Troponin High Sensitivity 7.3 pg/mL (<58.9)
--- NOTE | 2024-07-21 20:04 | RAD REPORT ---
EXAMINATION: ONE VIEW CHEST XR CLINICAL INDICATION: Cough;Fever;SOB TECHNIQUE: Frontal chest projection is submitted. Examination is limited by patient positioning and t echnique. COMPARISON: 09/17/2022 FINDINGS: The lungs are well inflated and clear. The heart is upper limit of normal in size. No displaced fract ures identified. IMPRESSION: No acute intrathoracic abnormalities.
--- NOTE | 2024-07-21 23:58 | EDPHYS ---
Physician Documentation [facility] Name: Jen Joyce Age: 49 yrs Sex: Female : 1975 Arrival Date: 07/21/2024 Time: 18:48 Bed 26 Private MD: ED Physician Abisai Da Silva HPI: 07/21 18:57 This 49 yrs old Female presents to ER via Unassigned with complaints of dr5 shortness of breath and fever. 18:59 Patient is a 49-year-old female who is coming in with shortness of breath and fever dr5 that started this afternoon. Patient reports that she works in a [employer]. Patient was brought in by EMS and received 2 albuterol and Atrovent treatments prior to arrival with an increased O2 sat from the 80s to approximate 94% patient is currently on 6 L NC. Historical: - Allergies: 18:59 Amoxicillin; ap3 - PMHx: 18:59 Asthma; ap3 - PSHx: 18:59 HEART SURGERY FEB 2022; ap3 - Immunization history:: Adult Immunizations not up to date. - Infectious Disease History:: Denies. - Social history:: Smoking status: Patient denies any tobacco usage or history of. ROS: 19:00 Constitutional: as per hpi dr5 Exam: 19:00 Constitutional: This is a well developed, well nourished patient who is awake, alert, dr5 and in no acute distress. Head/Face: Normocephalic, atraumatic. ENT: Nares patent. No nasal discharge, no septal abnormalities noted. Tympanic membranes are normal and external auditory canals are clear. Oropharynx with no redness, swelling, or masses, exudates, or evidence of obstruction, uvula midline. Mucous membranes moist. Neck: Trachea midline, no thyromegaly or masses palpated, and no cervical lymphadenopathy. Supple, full range of motion without nuchal rigidity, or vertebral point tenderness. No Meningismus. Chest/axilla: Normal chest wall appearance and motion. Nontender with no deformity. No lesions are appreciated. Cardiovascular: Regular rate and rhythm with a normal S1 and S2. Normal PMI, no JVD. No pulse deficits. 19:00 Respiratory: mild respiratory distress is noted, Respirations: labored breathing, that is mild, Breath sounds: wheezing: Respiratory rate: 30 Vital Signs: 18:57 BP 114 / 61; Pulse 85; Resp 21; Temp 99.7(O); Pulse Ox 96% on 4 lpm NC; Weight 61 kg; ap3 19:30 BP 108 / 76; Pulse 84; Resp 22; Pulse Ox 98% on 2 lpm NC; dd2 20:08 BP 121 / 72; Pulse 61; Resp 20; Pulse Ox 98% on 2 lpm NC; dd2 21:00 BP 100 / 51; Pulse 72; Resp 14; Pulse Ox 93% ; vc1 22:06 BP 97 / 75; Pulse 61; Resp 22; Pulse Ox 93% on 2 lpm NC; dd2 23:00 BP 104 / 58; Pulse 60; Resp 20; Pulse Ox 92% on 2 lpm NC; dd2 0412 00:00 BP 107 / 57; Pulse 54; Resp 19; Pulse Ox 93% on 2 lpm NC; dd2 00:00 BP 100 / 54; Pulse 59; Resp 20; Temp 98.8; Pulse Ox 94% on 2 lpm NC; dd2 01:50 BP 100 / 42; Pulse 48; Resp 14; Pulse Ox 95% ; vc1 MDM: 07/21 18:57 Medical Screening Exam initiated dr5 07/22 01:08 Differential Diagnosis altered mental status, flu, COVID, PNA, Influenza, Emphysema. dr5 Data reviewed: vital signs, nurses notes. Consideration of Admission/Observation Patient was admitted/placed on observation. I considered the following discharge prescriptions or medication management in the emergency department Medications were administered in the Emergency Department. See MAR. Care significantly affected by the following chronic conditions: Asthma. Care significantly affected by the following Social Determinants of Health: Poor access to healthcare and/or lack of insurance, Poor access to transportation, Problems related to employment. Counseling: I had a detailed discussion with the patient and/or guardian regarding the historical points, exam findings, and any diagnostic results supporting the discharge/admit diagnosis, the presence of at least one elevated blood pressure reading (>120/80) during this emergency department visit, lab results, the need for further work-up and treatment in the hospital. Medication response: albuterol nebulizer treatment(s) relieved the patient's symptoms. The patient is no longer wheezing. Response to treatment: the patient's symptoms have resolved after treatment. ED course: Patient reports her pain has resolved and is so much better. Patient also remains hypoxic on 4L at 90%. Will admit patient for hypoxia, get COVID and flu testing, and CT PE rule out. 07/21 18:59 Order name: Blood Culture Adult (2) dr5 07/21 18:59 Order name: CBC with Diff; Complete Time: 23:42 dr5 07/21 18:59 Order name: CMP; Complete Time: 19:54 07/21 18:59 Order name: Lactate w/ 2H reflex if indic.; Complete Time: 19:54 [facility] 07/21 18:59 Order name: Protime (+inr); Complete Time: 19:43 dr5 07/21 18:59 Order name: Ptt, Activated; Complete Time: 19:43 [facility] 07/21 18:59 Order name: Urinalysis w/ reflexes dr5 07/21 19:00 Order name: Troponin High Sensitivity; Complete Time: 19:54 [facility] 07/21 19:00 Order name: NT PRO-BNP; Complete Time: 19:54 [facility] 07/21 23:42 Order name: COVID-19 Ag + Flu A+B Ag; Complete Time: 00:42 [facility] 07/22 00:17 Order name: Magnesium EDMS 07/22 00:17 Order name: NT PRO-BNP EDMS 07/22 00:17 Order name: Phosphorus EDMS 07/22 00:17 Order name: Basic Metabolic Panel EDMS 07/22 00:17 Order name: Basic Metabolic Panel EDMS 07/22 00:17 Order name: Urinalysis w/ reflexes EDMS 07/22 00:18 Order name: CBC with Automated Diff EDMS 07/22 00:18 Order name: CBC with Automated Diff EDMS 07/22 06:08 Order name: Basic Metabolic Panel EDMS 07/22 08:20 Order name: Glucose, Ancillary Testing EDMS 07/22 11:17 Order name: Glucose, Ancillary Testing EDMS 07/21 18:59 Order name: Chest Single View XRAY; Complete Time: 23:42 [facility] 07/21 23:42 Order name: CT Chest For PE Angio dr5 07/22 00:27 Order name: Echo with Doppler EDMS 07/22 06:43 Order name: CT EDMS 07/21 18:59 Order name: Accucheck; Complete Time: 19:38 [facility] 07/21 18:59 Order name: Cardiac monitoring; Complete Time: 19:11 [facility] 07/21 18:59 Order name: EKG - Nurse/Tech; Complete Time: 20: dr5 07/21 18:59 Order name: IV Saline Lock - Large Bore; Complete Time: 19: dr5 07/21 18:59 Order name: Labs collected and sent; Complete Time: 19: dr5 07/21 18:59 Order name: O2 Per Protocol; Complete Time: : dr5 07/21 18:59 Order name: O2 Sat Monitoring; Complete Time: : dr5 07/21 18:59 Order name: Vital Signs; Complete Time: : dr5 EC/11 20:00 Rate is 62 beats/min. Rhythm is regular. QRS [place] is Normal. NM interval is normal at dr5 142 msec. QRS interval is normal at 100 msec. QT interval is normal at 406 msec. Administered Medications: 19:37 Drug: NS 0.9% IV 1000 ml IV at 1000 ml once; to be given as a bolus over 60 minutes dd2 Route: IV; Rate: 1000 ml; Site: right antecubital; 20:39 Follow up: IV Status: Completed infusion; IV Intake: 1000ml dd2 19:37 Drug: Dexamethasone IVP 10 mg IVP once; (not to exceed 40 mg) Route: IVP; Site: right dd2 antecubital; 19:52 Follow up: Response: No adverse reaction dd2 20:04 Drug: Acetaminophen PO 1000 mg PO once Route: PO; dd2 20:34 Follow up: Response: No adverse reaction dd2 20:04 Drug: Ibuprofen PO 800 mg PO once Route: PO; dd2 20:34 Follow up: Response: No adverse reaction dd2 20:04 Drug: DuoNeb Nebulize (3:1) (2.5 mg - 0.5 mg) 3 ml Nebulizer once Route: Nebulizer; dd2 20:34 Follow up: Response: No adverse reaction dd2 07/22 00:59 Drug: Potassium Chloride PO 40 mEq PO once Route: PO; dd2 Disposition Summary: 07/21/24 23:57 Hospitalization Ordered Notes: Hospitalization Status: Inpatient Admission dr5 Provider: Prince soni Kingsley Condition: Stable dr5 Problem: new dr5 Symptoms: are unchanged dr5 Bed/Room Type: Standard [facility] Location: Telemetry/MedSurg (Inpatient)(07/22/24 12:17) Room Assignment: 225(07/22/24 12:17) eb Diagnosis - Acute and chronic respiratory failure with hypoxia dr5 Forms: - Medication Reconciliation Form dr5 - SBAR form dr5 - Leadership Thank You Letter dr5 Addendum: 07/29/2024 08:13 Co-signature as Attending Physician, Abisai Da Silva MD I agree with the assessment and c ryan plan of care. Signatures: Dispatcher [employer] EDVT Abisai Da Silva MD MD cha Prokisch, Amanda RN RN ap3 Basia Suazo Vanessa, RN RN vc1 BERENICE MO RN RN dd2 Enrique Maria, ELEVATOR INSTALLER APPRENTICE-C ELEVATOR INSTALLER APPRENTICE-Cdr5 Corrections: (The following items were deleted from the chart) 07/21 19:00 18:59 BLOOD CULTURE*+BA.LAB.BRZ ordered. EDVT EDVT 19:00 18:59 CBC+H.LAB.BRZ ordered. EDVT EDVT 19:00 18:59 COMPREHENSIVE METABOLIC PANEL+C.LAB.BRZ ordered. EDVT EDVT 19:00 18:59 LACTATE+C.LAB.BRZ ordered. EDVT EDVT 19:00 18:59 PROTIME (+INR)+COAG.LAB.BRZ ordered. EDVT EDVT 19:00 18:59 PTT, ACTIVATED+COAG.LAB.BRZ ordered. EDVT EDVT 19:00 18:59 Urinalysis+U.LAB.BRZ ordered. EDVT EDVT 19:00 19:00 Chest Single View+RAD.RAD.BRZ ordered. EDVT EDVT 19:00 18:59 Patient is a 49-year-old female who is coming in with shortness of breath and dr5 fever that started this afternoon. Patient reports that she works in a [employer]. . dr5 07/22 02:35 04 23:57 Telemetry/MedSurg (observation) dr5 vc1 07/22 02:35 04 23:57 dr5 vc1 07/22 12:17 02:35 [facility] ER HOLD vc1 eb 12:17 02:35 ERHOLD- vc1 eb
--- NOTE | 2024-07-21 23:58 | ER ---
Nurse's Notes [facility] Name: Jen Joyce Age: 49 yrs Sex: Female : 1975 Arrival Date: 07/21/2024 Time: 18:48 Bed 26 Private MD: Diagnosis: Acute and chronic respiratory failure with hypoxia Presentation: 07/21 18:57 Chief complaint: Patient states: she started having shortness of breath yesterday with ap3 a cough. EMS reports the patient was 81% SpO2 on room air on their arrival. Coronavirus screen: At this time, the client does not indicate any symptoms associated with coronavirus-19. Ebola Screen: No symptoms or risks identified at this time. Initial Sepsis Screen: Does the patient meet any 2 criteria? RR > 20 per min. Does the patient have a suspected source of infection? No. Patient's initial sepsis screen is negative. Risk Assessment: Do you want to hurt yourself or someone else? Patient reports no desire to harm self or others. Onset of symptoms was July 20, 2024. 18:57 Method Of Arrival: EMS: [facility] ap3 18:57 Acuity: TAMELA 2 ap3 19:00 Care prior to arrival: Medication(s) given: Albuterol Neb. ap3 Triage Assessment: 18:59 General: Appears. ap3 Historical: - Allergies: 18:59 Amoxicillin; ap3 - PMHx: 18:59 Asthma; ap3 - PSHx: 18:59 HEART SURGERY FEB 2022; ap3 - Immunization history:: Adult Immunizations not up to date. - Infectious Disease History:: Denies. - Social history:: Smoking status: Patient denies any tobacco usage or history of. Screenin:00 [facility] ED Fall Risk Assessment (Adult) Impaired Gait. Abuse screen: Denies threats or ap3 abuse. Nutritional screening: No deficits noted. Tuberculosis screening: No symptoms or risk factors identified. 21:04 [facility] ED Fall Risk Assessment (Adult) History of falling in the last 3 months, vc1 including since admission No falls in past 3 months (0 pts) Confusion or Disorientation No (0 pts) Intoxicated or Sedated No (0 pts) Mobility Assist Device Used No (0 pt) Altered Elimination No (0 pt) Score/Fall Risk Level 0 - 2 = Low Risk Oriented to surroundings, Maintained a safe environment, Educated pt \T\ family on fall prevention, incl call for assistance when getting out of bed, Provided non-skid footwear, Hourly rounding (assess needs \T\ fall precautionary measures) done. Assessment: 18:57 General: Appears comfortable, Behavior is calm, cooperative, appropriate for age. Pain: ap3 Complains of pain in chest. Neuro: Level of Consciousness is awake, alert, obeys commands, Oriented to person, place, time, situation, Appropriate for age. Cardiovascular: Patient's skin is warm and dry. Respiratory: Reports shortness of breath cough that is Airway is patent Respiratory effort is even, unlabored, Respiratory pattern is regular, symmetrical, tachypnea Onset: The symptoms/episode began/occurred gradually. 21:03 Reassessment: Patient appears in no apparent distress at this time. No changes from vc1 previously documented assessment. Patient and/or family updated on plan of care and expected duration. Pain level reassessed. Patient is alert, oriented x 3, equal unlabored respirations, skin warm/dry/pink. Vital Signs: 18:57 BP 114 / 61; Pulse 85; Resp 21; Temp 99.7(O); Pulse Ox 96% on 4 lpm NC; Weight 61 kg; ap3 19:30 BP 108 / 76; Pulse 84; Resp 22; Pulse Ox 98% on 2 lpm NC; dd2 20:08 BP 121 / 72; Pulse 61; Resp 20; Pulse Ox 98% on 2 lpm NC; dd2 21:00 BP 100 / 51; Pulse 72; Resp 14; Pulse Ox 93% ; vc1 22:06 BP 97 / 75; Pulse 61; Resp 22; Pulse Ox 93% on 2 lpm NC; dd2 23:00 BP 104 / 58; Pulse 60; Resp 20; Pulse Ox 92% on 2 lpm NC; dd2 04/12 00:00 BP 107 / 57; Pulse 54; Resp 19; Pulse Ox 93% on 2 lpm NC; dd2 00:00 BP 100 / 54; Pulse 59; Resp 20; Temp 98.8; Pulse Ox 94% on 2 lpm NC; dd2 01:50 BP 100 / 42; Pulse 48; Resp 14; Pulse Ox 95% ; vc1 ED Course: 07/21 18:56 Patient arrived in ED. ap3 18:57 Enrique Maria FNP-C is [facility]. dr5 18:57 Abisai Da Silva MD is Attending Physician. dr5 18:57 Patient has correct armband on for positive identification. Bed in low position. Call ap3 light in reach. Side rails up X2. Client placed on continuous cardiac and pulse oximetry monitoring. NIBP monitoring applied. 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 Pulse ox on. NIBP on. 18:59 Triage completed. ap3 19:00 Arm band placed on right wrist. ap3 19:17 Inserted saline lock: 20 gauge in right antecubital area, using aseptic technique. mm11 Blood collected. Flushed with 10 mL NS. 19:17 Ptt, Activated Sent. mm11 19:17 Urinalysis w/ reflexes Sent. mm11 19:17 Protime (+inr) Sent. mm11 19:17 Lactate w/ 2H reflex if indic. Sent. mm11 19:17 CMP Sent. mm11 19:17 CBC with Diff Sent. mm11 19:17 Blood Culture Adult (2) Sent. mm11 19:17 Troponin High Sensitivity Sent. mm11 19:18 NT PRO-BNP Sent. mm11 19:30 BERENIEC MO, RN is Primary Nurse. dd2 20:05 EKG done, by ED staff, reviewed by Enrique PIRES. Initial Neb Treatment Given as dd2 ordered Patient was instructed and evaluated on procedure. Oxygen administration via nasal cannula \T\ 2L/min. 20:39 Patient tolerated procedure well without adverse effect. dd2 23:40 Chest Single View XRAY In Process Unspecified. EDMS 23:56 Prince Kingsley MD is Hospitalizing Provider. dr5 07/22 02:35 No provider procedures requiring assistance completed. Patient admitted, IV remains in vc1 place. 02:37 Primary Nurse role handed off by BERENICE MO, RN vc1 Administered Medications: 07/21 19:37 Drug: NS 0.9% IV 1000 ml IV at 1000 ml once; to be given as a bolus over 60 minutes dd2 Route: IV; Rate: 1000 ml; Site: right antecubital; 20:39 Follow up: IV Status: Completed infusion; IV Intake: 1000ml dd2 19:37 Drug: Dexamethasone IVP 10 mg IVP once; (not to exceed 40 mg) Route: IVP; Site: right dd2 antecubital; 19:52 Follow up: Response: No adverse reaction dd2 20:04 Drug: Acetaminophen PO 1000 mg PO once Route: PO; dd2 20:34 Follow up: Response: No adverse reaction dd2 20:04 Drug: Ibuprofen PO 800 mg PO once Route: PO; dd2 20:34 Follow up: Response: No adverse reaction dd2 20:04 Drug: DuoNeb Nebulize (3:1) (2.5 mg - 0.5 mg) 3 ml Nebulizer once Route: Nebulizer; dd2 20:34 Follow up: Response: No adverse reaction dd2 07/22 00:59 Drug: Potassium Chloride PO 40 mEq PO once Route: PO; dd2 Medication: 07/21 21:04 VIS not applicable for this client. vc1 Intake: 20:39 IV: 1000ml; Total: 1000ml. dd2 Outcome: 23:57 Decision to Hospitalize by Provider. dr5 07/22 02:36 Admitted to ER Hold. Please see [facility] for further documentation. vc1 Condition: stable 02:36 Patient left the ED. vc1 13:41 Patient left the ED. eb Signatures: Dispatcher [employer] EDOdessa Badillo RN RN [email or web address] Basia Suazo Vanessa, RN RN vc1 BERENICE MO RN RN dd2 Enrique Maria, PRANAY ELP-5 juve michelle mm11
[2024-07-22] MEDS ORDERED: ACETAMINOPHEN 500 MG TAB PO PRN (00:12)
[2024-07-22] MEDS ORDERED: ONDANSETRON 4 MG/2 ML VIAL IV PRN (00:12)
[2024-07-22] MEDS ORDERED: ALBUTEROL 2.5 MG/3 ML NEB SOL NEB PRN (00:12)
[2024-07-22] MEDS ORDERED: IPRATROPIUM BROM 0.5MG/2.5ML NEB PRN (00:12)
--- NOTE | 2024-07-22 00:22 | P.HP ---
Certification for Inpatient Patient admitted to: Inpatient With expected LOS: >2 Midnights Practitioner: I am a practitioner with admitting privileges, knowledge of patient current condition, hospital course, and medical plan of care. Services: Services provided to patient in accordance with Admission requirements found in Title 42 Section 412.3 of the Code of Federal Regulations Patient History Date of Service: 07/22/24 Reason for admission: Shortness of breath and hypoxia History of Present Illness: Trauma was said to be patient was seen and evaluated before midnight This is a 49-year-old female who is a former smoker. She currently has a history of seasonal allergies. She presented to the ER complaining of chest congestion and shortness of breath. She is also reporting a productive cough. She has no fever chills. She also denies lower extremity edema. Workup in the ER included a chest x-ray which was unremarkable. She is waiting to have a chest CT done. Additional workup including COVID and influenza test which are also currently in progress. Patient has no history of structural lung disease. She is currently on 4 L of oxygen via nasal cannula. Allergies amoxicillin Allergy (Verified 07/31/14 20:16) Itching/Hives/Rash Home Medications: Albuterol Sulfate [Albuterol Sulfate 0.083% Neb Soln] 2.5 mg NEB Q6HP PRN #60 ml 08/07/14 Ciprofloxacin HCl [Cipro 500 MG Tablet] 500 mg PO BID #20 tablet 08/07/14 Ipratropium Neb [Atrovent*] 0.5 mg NEB Q6HP PRN #60 amp 08/07/14 predniSONE [Prednisone*] 20 mg PO BID #30 tab 08/07/14 - Past Medical/Surgical History Diabetic: No -: ASTHMA -: HEART MURMURS -: APPY -: L/OOPHARECTOMY - Family History Mother -: Hypertension, Cancer Notes: stomach ca Sister -: Hypertension, Diabetes - Social History Alcohol use: No CD- Drugs: No Caffeine use: Yes Physical Examination - Physical Exam General: Acute distress HEENT: Atraumatic, Normocephalic Respiratory: Diminished Cardiovascular: No edema, Normal pulses, Regular rate/rhythm, Normal S1 S2 Neurological: Normal speech - Studies Laboratory Data (last 24 hrs) 07/21/24 07/21/24 07/21/24 19:15 19:15 19:15 WBC 9.10 Hgb 14.7 Hct 42.7 Plt Count 317 PT 11.6 INR 1.02 APTT 29.4 Sodium 136 Potassium 3.0 L BUN 12 Creatinine 1.08 H Glucose 109 H Total Bilirubin 0.5 AST 24 ALT 21 Alkaline Phosphatase 71 Assessment and Plan - Problems (Diagnosis) (1) Acute hypoxic respiratory failure Current Visit: Yes Status: Acute - Plan Assessment Patient is a 49-year-old female with a past medical history of tobacco smoking and possibly asthmatic bronchitis. She is here complaining of shortness of breath and chest congestion. Chest x-ray was negative for opacities or infiltrates. She is willing to have a CTA angio of the chest for PE rule out. Additional test including COVID-19 and influenza which are also in progress. In my evaluation, patient spoke in full sentences. She did not appear dyspneic although on supplemental oxygen. Acute hypoxemic respiratory failure Seasonal allergy Plan: Will admit inpatient Follow CT angio chest Follow COVID-19 and influenza test DuoNebs Will give a trial of Solu-Medrol Wean off oxygen as tolerated She will also benefit from pulmonary evaluation - Advance Directives Does patient have a Living Will: No Does patient have a Durable POA for Healthcare: No
[2024-07-22] MEDS: DULERA 200/5 (MOMETASONE/FORMOTEROL) INHALER IH SCH (00:23)
[2024-07-22 00:35] LABS: Influenza A Ag Negative; Influenza B Ag Negative; SARS-CoV-2 Antigen Rapid Res Negative (Negative)
[2024-07-22] MEDS ORDERED: POTASSIUM CL SA 10 MEQ TAB PO ONE ×2 (01:01→11:48)
[2024-07-22] MEDS ORDERED: METHYLPREDNISOLONE 40 MG INJ ONE ×2 (01:59→11:19)
[2024-07-22] MEDS ORDERED: NA CHLORIDE 0.9% 1,000 ML ONE (01:59)
[2024-07-22] MEDS: METHYLPREDNISOLONE 40 MG INJ IV SCH (02:14)
[2024-07-22] MEDS: NA CHLORIDE 0.9% 1,000 ML IV SCH (02:14)
[2024-07-22 05:46] LABS: Specific Gravity > 1.030 (1.005-1.030); Sqamous Epithelial None Seen /HPF (None Seen); Urine Bacteria None Seen /HPF (<20); Urine Bilirubin NEGATIVE (Negative); Urine Blood Trace (Negative); Urine Clarity Clear (Clear); Urine Color Colorless (Yellow); Urine Culture Reflex Order NOT NEEDED; Urine Glucose NEGATIVE (Negative); Urine Ketones NEGATIVE (Negative); Urine Microscopic Reflex YN ORDER UMIC; Urine Nitrite NEGATIVE (Negative); Urine Protein NEGATIVE (Negative); Urine RBC <5 /HPF (None Seen); Urine Urobilinogen Normal (Normal); Urine WBC None Seen /HPF (<5)
[2024-07-22 06:00] LABS: Anion Gap 10.7 mEq/L (5.0-15.0); Magnesium 2.4 mg/dL (1.6-2.4); Phosphorus 2.8 mg/dL (2.5-4.9); Potassium 3.7 mEq/L (3.5-5.1)
--- NOTE | 2024-07-22 06:42 | RAD REPORT ---
EXAM: CT chest angiography with intravenous contrast CLINICAL DATA: 49 years Female Chest pain;Cough. TECHNICAL DATA: Following the administration of intravenous contrast, multiple high-resolution axial images of the ch est were performed followed by sagittal and coronal reconstructed images. Axial, coronal and sagittal and coronal oblique MIP images were also performed. The CT study is performed according to A EVAN (as low as reasonably achievable) or ALARA/IMAGE GENTLY, with automatic adjustment of mA and/or kV according to patient size. Performed on: 07/22/2024 at 1:15 AM COMPARISONS: CT chest angiography performed on 05/11/2022. The prior CT chests performed on 02/15/2022 and 06/01/2018 were unavailable for review were unavailable for review. FINDINGS: There is satisfactory visualization and contrast opacification of pulmonary arteries. No definite i ntra-arterial filling defects are identified to suggest acute or chronic pulmonary embolism. The thoracic aorta is normal in caliber and contour without evidence of aneurysm or dissection. 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 The lungs are well expanded. There is new airspace consolidation in the right middle lobe, right lowe r lobe, lingula and to a lesser degree left lower lobe likely due to a combination of atelectasis and minimal fibrosis. There are no pleural effusions. There is no pneumothorax. The central airways a re patent. The heart is normal in size. There is no pericardial effusion. There is no reflux of contrast into th e hepatic veins to suggest right heart strain.The RV/LV ratio is within normal limits. There is no evidence of hilar, mediastinal or axillary lymphadenopathy. No acute osseous abnormality is identified. The visualized upper abdominal structures reveal a small hiatal hernia. IMPRESSION: 1. No evidence of acute or chronic pulmonary embolism, aortic aneurysm or aortic dissection. 2. New airspace consolidation in the right middle lobe, right lower lobe, lingula and to a lesser d egree left lower lobe likely due to a combination of atelectasis and minimal fibrosis. Pneumonia is considered less likely but not entirely excluded. 3. 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 4. Small hiatal hernia. Electronically signed by: Linda Colvin DO 07/22/2024 03:31 AM CDT RP Due to temporary technical issues with the PACS/[employer]ital[employer] reporting system, reports are being jennifer d by the in-house radiologist without review as a courtesy to ensure prompt reporting the interpreting radiologist is fully responsible for the content of the report. Transcribed Date/Time: 07/22/2024 6:41 AM
--- NOTE | 2024-07-22 11:00 | P.PN ---
Subjective Date of Service: 07/22/24 (Hospitalist) Chief Complaint: Pneumonia Subjective: Improving Patient is 49 years of age admitted from the emergency room with cough congestion shortness of breath he is a former smoker history of asthma uses albuterol has not been sick had COVID last month has currently doing well CT scan shows some minimal infiltrate on the right side possible pneumonia with underlying exacerbation Review of Systems Respiratory: Cough, Shortness of Breath Physical Examination - Vital Signs Temperature: 97.5 F Blood Pressure: 110/63 Pulse: 78 Respirations: 18 Pulse Ox (%): 95 - Physical Exam General: Alert, In no apparent distress, Oriented x3 Respiratory: Clear to auscultation bilaterally Cardiovascular: No edema, Regular rate/rhythm, Normal S1 S2 Gastrointestinal: Normal bowel sounds, Soft and benign - Studies Laboratory Data (last 24 hrs) 07/21/24 07/21/24 07/21/24 19:15 19:15 19:15 WBC 9.10 Hgb 14.7 Hct 42.7 Plt Count 317 PT 11.6 INR 1.02 APTT 29.4 Sodium 136 Potassium 3.0 L BUN 12 Creatinine 1.08 H Glucose 109 H Total Bilirubin 0.5 AST 24 ALT 21 Alkaline Phosphatase 71 Assessment And Plan - Current Problems (Diagnosis) (1) Pneumonia Current Visit: Yes Status: Acute Plan: Patient is 49 years of age with a history of presumed asthma has not had an exacerbation developed some COVID last month now admitted with worsening dyspnea has minimal infiltrates on the right side possible pneumonia has a normal white count currently vital signs are all stable changed to p.o. prednisone p.o. antibiotics evaluate of oxygen start on long-acting bronchodilators discharge planning Qualifiers: Pneumonia type: due to unspecified organism Laterality: right
[2024-07-22] MEDS ORDERED: ENOXAPARIN 40 MG/0.4 ML SQ ONE (11:20)
[2024-07-22] MEDS: ENOXAPARIN 40 MG/0.4 ML SQ SCH (11:45)
[2024-07-22] MEDS: POTASSIUM CL SA 10 MEQ TAB PO ONE (11:46)
[2024-07-22] MEDS: predniSONE 20 MG TAB PO SCH (20:31)
[2024-07-23 05:58] LABS: Absolute Basophils 0.1 K/uL (0-0.5); Absolute Monocytes 0.6 K/uL (0.1-1.3); Absolute Neutrophil 13.8 K/uL (1.8-8.0); Basophils % 0.4 % (0-1.3); Hematocrit 36.9 % (36.0-45.0); Hemoglobin 12.8 g/dL (12.0-15.0); Lymphocytes % 11.9 % (15.3-44.8); MCHC 34.6 g/dL (32.0-36.0); MCV 89.5 fL (80-100); MPV 9.5 fL (7.6-11.3); Monocytes % 3.7 % (3.3-12.3); Nucleated Red Blood Cells % 0.1 % (0-0); Platelets 229 thou/uL (152-406); RBC Red Blood Cell Count 4.12 M/uL (3.86-4.86); Red Cell Distribution Width 14.5 % (12.1-15.2)
[2024-07-23 06:25] LABS: Anion Gap 7.9 mEq/L (5.0-15.0); Potassium 4.9 mEq/L (3.5-5.1)
[2024-07-23 07:42] LABS: Platelet Estimate ADEQ; Platelets Clumped FIBRIN STRANDS; White Blood Cell Scan OK (OK)
[2024-07-23 07:43] LABS: Blood Morphology Comment NOT SEEN (NOT SEEN)
[2024-07-23 10:15] VITALS: O2SAT 99
--- NOTE | 2024-07-23 10:15 | P.DS ---
Admission Date: 07/22/24 Discharge Date: 07/23/24 Disposition: ROUTINE DISCHARGE Discharge Condition: FAIR Reason for Admission: Pneumonia - Problems (1) Pneumonia Current Visit: Yes Status: Acute Qualifiers: Pneumonia type: due to unspecified organism Laterality: right Brief History of Present Illness: Patient is 49 years of age with a prior history of asthma appears to be well- controlled admitted with sudden onset of cough congestion Hospital Course: CT scan showed some infiltrates on the right side probably had an exacerbation of her underlying asthma triggered by infection did well during the course of his stay patient to be discharged home on levofloxacin Dulera sats were over 91% at the time of discharge patient was doing well alert oriented responsive feeling better little wheezing on the left side white count was a bit elevated I suspect is from the steroids patient cultures were all negative On examination alert oriented responsive cooperative chest some wheezing on the left side cardiovascular system heart sounds normal vital signs stable patient to be discharged follow-up with me in 2 weeks Vital Signs/Physical Exam: Temp Pulse Resp BP Pulse Ox 97.8 F 43 L 20 130/63 99 07/23/24 08:00 07/23/24 08:00 07/23/24 08:00 07/23/24 08:00 07/23/24 08:00 Laboratory Data at Discharge: WBC 16.50 thou/uL (4.3-10.9) H 07/23/24 05:28 Hgb 12.8 g/dL (12.0-15.0) 07/23/24 05:28 Hct 36.9 % (36.0-45.0) 07/23/24 05:28 Plt Count 229 thou/uL (152-406) 07/23/24 05:28 PT 11.6 SECONDS (10-13.0) 07/21/24 19:15 INR 1.02 07/21/24 19:15 APTT 29.4 SECONDS (27.2-37.4) 07/21/24 19:15 Sodium 137 mEq/L (136-145) 07/23/24 05:28 Potassium 4.9 mEq/L (3.5-5.1) D 07/23/24 05:28 BUN 17 mg/dL (7-18) 07/23/24 05:28 Creatinine 0.80 mg/dL (0.55-1.02) 07/23/24 05:28 Glucose 129 mg/dL (74-106) H 07/23/24 05:28 Phosphorus 2.8 mg/dL (2.5-4.9) 07/22/24 05:17 Magnesium 2.4 mg/dL (1.6-2.4) 07/22/24 05:17 Total Bilirubin 0.5 mg/dL (0.2-1.0) 07/21/24 19:15 AST 24 U/L (15-37) 07/21/24 19:15 ALT 21 U/L (13-56) 07/21/24 19:15 Alkaline Phosphatase 71 U/L (45-117) 07/21/24 19:15 Home Medications: levoFLOXacin [Levaquin*] 750 mg PO DAILY #7 tab 07/22/24 predniSONE [Prednisone*] 20 mg PO BID #14 tab 07/22/24 New Medications: levoFLOXacin [Levaquin*] 750 mg PO DAILY #7 tab predniSONE [Prednisone*] 20 mg PO BID #14 tab Physician Discharge Instructions: . Please check patients O2 at rest and exertion Discharge if > 90% Please patient dulera 2 p BID from Hospital Diet: Regular Activity: Ad duy Followup: NONE,NONE [Primary Care Provider] - Tommie Juarez MD [ACTIVE - CAN ADMIT] -
[2024-07-23 12:28] VITALS: BP 126/61; TEMP 98.2
--- NOTE | 2024-07-24 10:54 | EKG ---
Test Date: 2024-07-21 Test Time: 19:57:25 Supervisor Cabinetmaker: COMFORT MEASUREMENT RESULTS: Intervals: Rate: 87 [place]: 172 QRSD: 94 QT: 406 QTc: 488 [place]: P: 60 [place]: 172 QRS: 48 T: 49 INTERPRETIVE STATEMENTS: Sinus rhythm with frequent PVCs RSR' or QR pattern in V1 suggests right ventricular conduction delay ST & T wave abnormality, consider anterolateral ischemia Abnormal ECG Compared to ECG 09/17/2022 21:12:33 RSR' in V1 or V2 now present ST (T wave) deviation now present Possible ischemia now present Sinus rhythm no longer present Electronically Signed On 07-24-24 10:49:57 CDT by Keanu Hutchinson
--- NOTE | 2024-08-02 13:21 | EKG ---
Test Date: 2024-07-21 Test Time: 20:00:01 Chinchilla Farmer: COMFORT MEASUREMENT RESULTS: Intervals: Rate: 62 [place]: 142 QRSD: 100 QT: 406 QTc: 412 [place]: P: 62 [place]: 142 QRS: 42 T: 15 INTERPRETIVE STATEMENTS: Normal sinus rhythm Incomplete right bundle branch block ST & T wave abnormality, consider anterolateral ischemia Abnormal ECG Compared to ECG 07/21/2024 19:57:25 Incomplete right bundle-branch block now present Ventricular premature complex(es) no longer present ST (T wave) deviation still present Possible ischemia still present Electronically Signed On 08-02-24 12:55:08 CDT by Keanu Hutchinson
== END 2024-07-23 12:35 | disposition home or self-care (01) | DRG 193 ==
LOC: ER 18:48 → ERHOLD 07-22 00:12 → 2ND 07-22 13:20
PROVIDERS: ADMIT Internal Medicine; ATTEND Internal Medicine Sleep Medicine
DX: J18.9 Pneumonia, unspecified organism (principal); J96.21 Acute and chronic respiratory failure with hypoxia; J45.901 Unspecified asthma with (acute) exacerbation; Z11.52 Encounter for screening for COVID-19; Z87.891 Personal history of nicotine dependence; Z79.82 Long term (current) use of aspirin; Z79.899 Other long term (current) drug therapy; Z88.0 Allergy status to penicillin; Z90.721 Acquired absence of ovaries, unilateral; Z82.49 Family history of ischemic heart disease and other diseases of the circulatory system; Z83.3 Family history of diabetes mellitus; Z80.0 Family history of malignant neoplasm of digestive organs
CPT/HCPCS: 36415; 71045; 71275; 80048; 80053; 81001; 82947; 83605; 83735; 83880; 84100; 84484; 85025; 85610; 85730; 87040; 87428; 93005; 94640; 94760; 96361; 96374; 99285; J1100; J1650; J2919; J3535; J7030; J7512; J7613; J7644; Q9967